=== PATIENT | female | born 1950 | race Caucasian/White ===

== ENCOUNTER → 2018-09-15 05:57 | Outpatient (CLI) | payer MEDICARE, SELFPAY ==
--- NOTE | 2018-09-15 06:03 | ECHOD_ITS ---
Reason For Study: Chest Pain Procedure This was a 2D Doppler, Color Flow transthoracic echocardiogram. The exam was of adequate technical quality. Exam performed in department. Left Ventricle Normal LV size. Left ventricular systolic function is normal. The estimated ejection fraction is 65 %. The global longitudinal strain = -19 % (normal). Diastolic function is indeterminate. No regional wall motion abnormalities noted. Right Ventricle Normal RV size. Normal systolic function. Atria The left atrium is moderately enlarged. Normal right atrium. No doppler evidence for ASD. Mitral Valve There is mild mitral annular calcification. Equivocal mitral valve prolapse. Mild (1+) mitral valve insufficiency. Tricuspid Valve Normal tricuspid valve. Trivial tricuspid valve insufficiency. Right ventricular systolic pressure estimated to be 22 mmHg. Aortic Valve Trisinus/trileaflet aortic valve. Mild focal aortic valve calcification. Trivial aortic valve insufficiency. Pulmonic Valve The pulmonic valve is not well visualized. Trivial pulmonic valve insufficiency. Great Vessels Normal sized aortic root. Pericardium/Pleural No pericardial effusion. MMode/2D Measurements & Calculations LVIDd: 4.2 cm IVSd: 1.6 cm Ao root diam: 3.0 cm LVIDs: 2.5 cm LVPWd: 1.2 cm LA dimension: 3.9 cm RVDd: 2.8 cm FS: 40.8 % LAV(MOD-bp): 77.2 ml LVAd ap4: 29.6 cm2 SV(MOD-sp4): 56.8 ml LAV(MOD-bp) Indexed: 35.0 ml/m2 EDV(MOD-sp4): 91.3 ml LAV(MOD-sp2): 71.9 ml EDV(sp4-el): 94.5 ml LAV(MOD-sp4): 82.5 ml LVAs ap4: 15.8 cm2 ESV(MOD-sp4): 34.5 ml ESV(sp4-el): 36.2 ml EF(MOD-sp4): 62.2 % EF(sp4-el): 61.7 % SV(sp4-el): 58.3 ml LA A4 area: 26.1 cm2 RA A4 area: 12.1 cm2 Time Measurements MV dec time: 0.26 sec Doppler Measurements & Calculations MV E max blair: 69.0 cm/sec Lat Peak E' Blair: 8.7 cm/sec Med Peak E' Blair: 7.1 cm/sec MV A max blair: 112.7 cm/sec E/E' lat: 7.9 E/E' med: 9.7 MV E/A: 0.61 MV V2 max: 140.6 cm/sec MV P1/2t max blair: 84.7 cm/sec Ao V2 max: 158.2 cm/sec MV max P.9 mmHg MV P1/2t: 99.7 msec Ao max P.0 mmHg MV V2 mean: 71.2 cm/sec Ao V2 mean: 103.2 cm/sec MV mean P.4 mmHg MV dec slope: 249.1 cm/sec2 Ao mean P.0 mmHg MV V2 VTI: 35.1 cm MVA(P1/2t): 2.2 cm2 Ao V2 VTI: 31.2 cm AI max blair: 453.9 cm/sec LV V1 max: 117.3 cm/sec PA V2 max: 101.1 cm/sec AI max P.4 mmHg LV V1 max P.5 mmHg AI dec slope: 202.1 cm/sec2 LV V1 mean P.8 mmHg AI P1/2t: 657.7 msec LV V1 mean: 77.7 cm/sec LV V1 VTI: 25.6 cm TR max blair: 217.2 cm/sec TR max P.9 mmHg Interpretation Summary Left ventricular systolic function is normal. The estimated ejection fraction is 65 %. The global longitudinal strain = -19 % (normal). The left atrium is moderately enlarged. There is mild mitral annular calcification. Equivocal mitral valve prolapse. Mild (1+) mitral valve insufficiency. Trivial tricuspid valve insufficiency. Mild focal aortic valve calcification. Trivial aortic valve insufficiency. Trivial pulmonic valve insufficiency. Right ventricular systolic pressure estimated to be 22 mmHg. Diastolic function is indeterminate. Ordering Physician: Robert Angulo Referring Physician: Xander Gunn Performed By: John Hong RCS
--- NOTE | 2018-09-15 09:25 | STRESSREP ---
Stress Test Report Date: 09/15/2018 Procedure: Exercise tolerance test/imaging study Indications: Chest pain Consent: Per the patient Procedure: The patient exercised on a Kushal protocol for 4 minutes and 45 seconds completing Stage I and 1 minute and 45 seconds of Stage II achieving a peak heart rate of 146 bpm (96 % predicted maximal heart rate) with a peak blood pressure 158/82 mmHg and a peak MET capacity of 6 METs. The baseline ECG demonstrated normal sinus rhythm. The peak exercise ECG demonstrated somatic/motion artifact with no obvious ECG changes. There was an isolated PVC during exercise. The functional capacity was considered average. There was chest pressure during exercise with spontaneous resolution in recovery. The examination was discontinued secondary to chest pressure. Impression: 1. Technically adequate (percent predicted maximal heart rate greater than 85%) exercise tolerance test 2. Peak exercise ECG with somatic/motion artifact with no obvious ECG changes 3. There was an isolated PVC during exercise 4. Nuclear images pending Myocardial perfusion imaging study: Technique: The patient was injected with 14.1 mCi of technetium 99m Cardiolite and subsequently rest SPECT Cardiolite nuclear imaging was obtained in the horizontal long, vertical long, and short axis views. The patient exercised on a Kushal protocol for 4 minutes and 45 seconds completing Stage I and 1 minute 45 seconds of Stage II achieving a peak heart rate of 146 bpm (96 % predicted maximal heart rate) with a peak blood pressure 158/82 mmHg and a peak MET capacity of 6 METs. The patient was injected with 44.6 mCi of technetium 99m Cardiolite and subsequently stress SPECT Cardiolite nuclear imaging was obtained in the horizontal long, vertical long, and short axis views. A gated Cardiolite study at peak stress was obtained. Interpretation: Rest and stress SPECT Cardiolite nuclear imaging status post realignment, normalization, and, pre-attenuation correction, and post attenuation correction, demonstrates appearance at pre-attenuation correction of diminished tracer uptake in portions of the mid to distal anterior and anterior apical segments which appears to be similar between rest and stress and post attenuation demonstrating the appearance of diminished tracer uptake in portions of the mid to distal anterior and anterior apical segments which appears to be more prominent at rest as opposed to stress. However, the polar map images suggest at stress and area of venous tracer uptake in the anterior apical segments appearing more prominent at stress as opposed to rest. There is end systolic thickening and brightening. The gated Cardiolite study demonstrates myocardial thickening and inward wall motion. The reported LVEF is 68 %. Impression: 1. Rest and stress SPECT Cardiolite nuclear imaging demonstrate myocardial perfusion changes pre-attenuation correction at both rest and stress appearing similar without significant changes; post attenuation correction appearing somewhat more prominent at rest as opposed to stress; and the polar map images demonstrating an area of diminished tracer uptake in the anterior apical segments which appears to be more prominent at stress as opposed to rest. The aforementioned changes may be compatible with a combination of shifting soft tissue attenuation/artifact, however, an area of myocardial ischemia in the distal anterior/anteroapical segments cannot necessarily be excluded. 2. The gated Cardiolite study reports an LVEF of 68 %. This note was generated with [employer] software. It may contain incorrect words, spelling, and punctuation that were not noted in checking the note before signing.
== END ==
PROVIDERS: Family Provider Family Medicine; PCP Family Medicine; Referring Provider Internal Medicine Cardiovascular Disease; Visit Provider Internal Medicine Cardiovascular Disease
DX: R07.9 Chest pain, unspecified (principal); E78.5 Hyperlipidemia, unspecified; I10 Essential (primary) hypertension; R06.02 Shortness of breath
CPT/HCPCS: 78452; 93017; 93306; A9500; A4216

== ENCOUNTER → 2018-09-28 11:21 | Outpatient (CLI) | payer MEDICARE, SELFPAY ==
[2018-08-18 10:07] VITALS: BMI 36.1
--- NOTE | 2018-09-28 11:35 | RAD_ITS ---
NO CHEST COMPLAINTS, HAVING HEART CATH DONE EXAM: XR Chest 2 Views: COMPARISON: No current comparison exams FINDINGS: Normal heart size. Interstitial scarring involving the mid and lower lung zones bilaterally. The pulmonary vascularity shows no overt congestion. No pleural effusion or pulmonary consolidation. Small hiatal hernia. Surgical clips at the left breast RAD/Chest PA and Lateral IMPRESSION: 1. No definite acute disease. 2. Mild interstitial fibrosis 3. Small hiatal hernia. at 0331 Reported and signed by: Alfredo Long MD Electronically Signed: Alfredo Long, at 3:29 EST Tel , Service support ,
[2018-09-28 13:45] LABS: Absolute Lymphocyte Count 2.64 X10^3/ul (0.83-4.51); Absolute Neutrophil Count 4.1 X10^3/uL (2.0-7.7); Basophil# 0.02 X10^3/uL; Basophil% 0.3 % (0-1); Eosinophil# 0.09 X10^3/uL; Eosinophils% 1.2 % (0-5); Hematocrit 44.4 % (37-47); Hemoglobin 15.1 g/dl (12.0-15.0); Lymphocyte # 2.64 X10^3/ul (4.0); Lymphocyte % 34.9 % (19-41); Mean Corpuscular Hgb 31.7 pg (27.0-32.0); Mean Corpuscular Volume 93.1 fL (81-99); Mean Platelet Vol. 11.4 fl (6.2-12.0); Monocyte# 0.68 X10^3/uL; Neutrophil # 4.14 X10^3/uL (2.7-7.7); Neutrophil % 54.6 % (47-70); Platelet Count 190 K/mm3 (150-450); RBC Distribution Width CV 12.6 % (11.6-14.6); Red Blood Count 4.77 M/mm3 (4.2-5.4); White Blood Count 7.6 K/mm3 (4.4-11.0)
[2018-09-28 13:46] LABS: POSITIVE COUNT NO; POSITIVE DIFFERENTIAL NO; POSITIVE MORPHOLOGY NO
[2018-09-28 13:49] LABS: Prothrombin Time (Protime)PT. 13.4 SECONDS (11.7-14.9)
[2018-09-28 13:50] LABS: Partial Thromboplast Time 29.1 Seconds (24.1-36.2)
[2018-09-28 13:58] LABS: Anion Gap 6 (5-15); BUN 18 mg/dL (7-18); BUN/Creat Ratio 24.9 RATIO (10-20); Calcium,Total 9.4 mg/dL (8.5-10.1); Chloride 108 mmol/L (98-107); Creatinine, Serum 0.72 mg/dL (0.55-1.02); EST Glomerular Filtration Rate 85 mL/min (>60); Est Glom Filt Rate - Afr Amer 103 mL/min (>60); Glucose 62 mg/dL (74-106); Potassium 3.8 mmol/L (3.5-5.1); Sodium Level 141 mmol/L (136-145)
--- OUTSIDE RECORDS SUMMARY | 2018-11-23 20:15 | XMS RPT_ITS ---
:1950 Author Organization [facility] Care Team Providers Name Role Phone MIKE PADRON Admitting Unavailable MIKE PADRON Attending Unavailable LYNDA GIL (WINDOWS SERVER SUPPORT TECHNICIAN) Referring Unavailable XANDER GUNN Referring Unavailable XANDER GUNN Attending Unavailable XANDER GUNN Referring Unavailable XANDER GUNN Referring Unavailable XANDER GUNN Referring Unavailable XANDER GUNN Referring Unavailable XANDER GUNN Referring Unavailable MIKE PADRON Referring Unavailable MIKE PADRON Attending Unavailable XANDER GUNN Referring Unavailable OLIVE VALENCIA (GALLO) Attending Unavailable MIKE PADRON Referring Unavailable MIKE PADRON Attending Unavailable MIKE PADRON Referring Unavailable XANDER GUNN Referring Unavailable XANDER GUNN Attending Unavailable XANDER GUNN Referring Unavailable XANDER GUNN Referring Unavailable LYNDA GIL (WINDOWS SERVER SUPPORT TECHNICIAN) Attending Unavailable LYNDA GIL (WINDOWS SERVER SUPPORT TECHNICIAN) Referring Unavailable Vesna, Alexis H Attending Unavailable Moodisedgar, Robert Attending Unavailable Moodispagalileo, Robert Referring Unavailable [place]quebogue, Xander Primary Care Unavailable Moodispagalileo, Robert Consulting Unavailable Elmira Martinez Attending Unavailable Moodisedgar, Robert Attending Unavailable Dionte Méndez Referring Unavailable Moodispagalileo, Robert Attending Unavailable Moodispagalileo, Robert Referring Unavailable Luis A, Xander Primary Care Unavailable Moodispagalileo, Robert Attending Unavailable Moodispagalileo, Robert Referring Unavailable Luis A, Xander Primary Care Unavailable Moodispagalileo, Robert Consulting Unavailable Elmira Hook Attending Unavailable Elmira Hook Referring Unavailable [place]quebogue, Xander Primary Care Unavailable Moodispagalileo, Robert Attending Unavailable Moodispagalileo, Robert Referring Unavailable [place], Xander Primary Care Unavailable PROBLEMS PROBLEMS DATE TYPE CONDITION / CODE ATTENDING STATUS SOURCE 09/15/2018 Unknown I10 - Essential Moodispagalileo, Robert Active [facility] (primary) Community hypertension / Hospital I10(ICD-10) Repository 09/15/2018 Unknown R07.9 - Chest Moodispagalileo, Robert Active [facility] pain, unspecified Community / R07.9(ICD-10) Hospital Repository 09/15/2018 Unknown R06.02 - Shortness Moodispagalileo, Robert Active [place] of breath / Community R06.02(ICD-10) Hospital Repository 09/15/2018 Unknown E78.5 - Moodispagalileo, Robert Active [facility] Hyperlipidemia, Community unspecified / Hospital E78.5(ICD-10) Repository 08/31/2018 Active Unknown / KASI, Active [facility] UNK(Unknown) LYNDA (WINDOWS SERVER SUPPORT TECHNICIAN) [place] Repository 07/12/2018 Active 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 Repository arteries / I65.23(ICD-10) 07/30/2018 Active Encounter for NA Active [facility] immunization / [place] Z23(ICD-10) Repository 07/05/2018 Active 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 [facility] (current) drug [place] therapy / Repository Z79.899(ICD-10) 01/28/2018 Active Trigger finger, MIKE PADRON Active [facility] right middle [place] finger / Repository M65.331(ICD-10) 01/17/2018 Active Pain, unspecified NA Active [facility] / R52(ICD-10) [place] Repository 05/25/2017 Active Cerebral cysts / NA Active [facility] G93.0(ICD-10) [place] Repository 01/03/2018 Active Age-related NA Active [facility] osteoporosis [place] without current Repository pathological fracture / M81.0(ICD-10) 12/23/2017 Active Encounter for NA Active [facility] screening for [place] other disorder / Repository Z13.89(ICD-10) 12/23/2017 Active Low back pain / NA Active [facility] M54.5(ICD-10) [place] Repository 12/23/2017 Active Other chronic pain NA Active [facility] / G89.29(ICD-10) [place] Repository 05/25/2017 Active 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[facility] infarction, [place] unspecified / Repository I63.9(ICD-10) 12/16/2017 Active Encounter for NA Active [facility] screening for [place] other viral Repository diseases / Z11.59(ICD-10) 08/31/2017 Active Malignant neoplasm NA Active [facility] of lower-inner [place] quadrant of left Repository female breast / C50.312(ICD-10) 08/31/2017 Active Estrogen receptor NA Active [facility] positive status [place] (ER+) / Repository Z17.0(ICD-10) 12/09/2017 Active Encounter for NA Active [facility] screening [place] mammogram for Repository malignant neoplasm of breast / Z12.31(ICD-10) PROCEDURES PROCEDURES No Procedure Records FoundRESULTS RESULTS HISTORY AND PHYSICAL Observed: 10/11/2018 Status: F Source: [place] EXAM 9:12 AM [facility] [place] [facility] Medical Records Department [address] [place] [id number] History and Physical 10/11/18 0903 MR#: [id number] Acct: [id number] Name: PENELOPE CEDILLO Rep #: [id number] : 1950 68 From: Robert Angulo MD PCP: Xander Gunn MD Status: [place] [facility] [place] Location[place] [facility] Problem List (1) Chest pain Status: Acute Qualifiers: (2) SOB (shortness of breath) Status: Acute (3) Abnormal stress test Status: Acute (4) Hyperlipemia Status: Chronic Qualifiers: (5) Essential hypertension Status: Chronic History of Present Illness Date of Admission: 10/11/18 The patient is a 68 year old female who has previously been evaluated in the outpatient setting for concerns of chest discomfort, shortness of breath, superimposed upon hyperlipidemia and hypertension, who now presents for further cardiovascular evaluation based upon an abnormal exercise tolerance test/imaging study. Since her original evaluation she underwent a transthoracic echocardiogram on 09/15/2018. At that time her left ventricle was normal with an LVEF of 65% with moderate left atrial enlargement, mild mitral annular calcification, equivocal mitral valve prolapse with mild MR, trivial TR, mild focal aortic valve calcification with trivial AI, trivial WI, and an estimated RV systolic pressure of 22 mmHg. Diastolic dysfunction was considered indeterminate. She underwent an exercise tolerance test/nuclear imaging study on 09/15/2018. At that time she exercised on a Kushal protocol for 4 minutes and 45 seconds achieving 96% predicted maximal heart rate with a peak blood pressure 158/82 mmHg and a peak metabolic capacity of 6 metabolic equivalents. She had an isolated PVC during exercise. She had no obvious ECG changes. Her nuclear images suggested changes in the distal anterior apical segments being somewhat more prominent at stress as opposed to rest potentially compatible shifting soft tissue attenuation/artifact although an area of myocardial ischemia could not be excluded. Her gated LVEF was 68%. She states over time she still has concerns of exertional chest pressure as well as feeling somewhat short of breath and dyspneic. She has denied obvious orthopnea or PND. There is been no peripheral pitting edema. There is been no near syncope or syncope. Based upon her ongoing cardiovascular risk factors, symptoms, and objective findings she has been recommended for further evaluation with diagnostic cardiac catheterization. The procedure and risks were discussed with her. She was agreeable to this approach. [] Past Medical History Allergies/Adverse Reactions: Allergies loratadine [From Claritin] Allergy (Severe, Verified 08/18/18 10:07) Hives Penicillins Allergy (Severe, Verified 08/18/18 10:07) Anaphylaxis acetaminophen [From Vicodin] Adverse Reaction (Severe, Verified 08/18/18 10:07) Vomiting hydrocodone [From Vicodin] Adverse Reaction (Severe, Verified 08/18/18 10:07) Vomiting Home Medications: Ambulatory Orders Medication Instructions Recorded Past Medical History (Chronic Problems): Chronic Problems (Last Reviewed 08/18/18 @ 10:13 by Elmira Martinez) Essential hypertension (Chronic) Hyperlipemia (Chronic) GERD (gastroesophageal reflux disease) (Chronic) Smoking Status: Never smoker Alcohol: None Drugs: None Review of Systems - Review of Systems General: Denies: Fever, Night Sweats, Fatigue Cardiovascular: Reports: Chest Discomfort at Rest, Shortness of Breath with Exertion. Denies: Chest Discomfort, Shortness of Breath, Orthopnea, PND, Peripheral Edema, Palpitations, Lightheadedness, Dizziness, Near Syncope, Syncope Respiratory: Reports: Shortness of Breath. Denies: Cough, Sputum Production, Hemoptysis Gastrointestinal: Denies: Hematemesis, Hematochezia, Melena Genitourinary: Denies: Dysuria, Hematuria Skin: Denies: Rash Subjectve: This is a pleasant 68-year-old white female appears to be resting comfortably at the moment in no acute distress. Objective: Weight: 241 lb Body Mass Index (BMI) 36.1 General: Awake, Alert, Oriented x 3, Cooperative, No Acute Distress HEENT: Atraumatic, Normocephalic, PERRL, EOMI, Sclera Non Icteric Oral: Moist Mucosa Neck: Supple, Good ROM, No JVD Lungs: Clear to auscultation Cardiovascular: Regular Rhythm, Normal S1, Normal S2 Vascular: No Carotid Bruits Abdomen: Bowel Sounds Present, Soft, Non Tender Extremities: No Cyanosis, No Clubbing, No edema Neurological: No Focal Motor or Sensory Deficit Psych/Mental Status: Appropriate, Normal Affect VTE Information - Inpt Only VTE Present on Admission: No VTE Mechan Device Prophylaxis: None VTE Pharm Prophylaxis ordered?: No Reason prophylaxis not ordered:: Treatment Not Indicated Rhythm: Sinus rhythm EKG: Sinus rhythm; leftward axis; poor R wave progression ECHO: As noted above Stress Test: As noted above CXR: Per radiology: Concerns of mild interstitial fibrosis; small hiatal hernia; no definite acute disease process Assessment/Plan 1. Chest pain/shortness of breath The patient has continue with concerns of her chest pain/shortness of breath. As noted above she does have cardiovascular risk factors. She has an abnormal exercise tolerance test/imaging study. She is going to be further evaluated for the possibility of underlying CAD with diagnostic cardiac catheterization. The procedure and risks were discussed with her. She was agreeable to this approach. 2. Abnormal exercise tolerance test/imaging study At the present time she continues with her cardiovascular risk factors and symptoms and her objective findings. She is scheduled for upcoming diagnostic cardiac catheterization as noted above. 3. Hyperlipidemia We will continue risk factor evaluation care as deemed appropriate. 4. Hypertension She will continue medical management as deemed appropriate. Comment: The above was discussed and reviewed with the patient. This note was generated with Secure-NOK dictation software. It may contain incorrect words, spelling, and punctuation that were not noted in checking the note before signing. 10/11/1812 <Electronically signed by Robert Angulo MD> Date Robert Angulo MD Cosigner Signature: Date (if applicable) CC: Robert Angulo MD; Xander Gunn MD Signed CNCO Observed: 09/29/2018 Status: COMPLETED Source: [place] 12:[address] [facility] REPOSITORY Letter Text [facility] Department of Family Medicine [address] [facility]. [place], [place] [address] Penelope Cedillo [address] [place] [address] September 29, 2018 Dear , Due to unforeseen circumstances, there has been a change in the schedule for Xander Gunn MD Your original appointment scheduled for 01/10/2019 at 1:00 PM has been cancelled, please give our office a call at [phone]. I apologize for any inconvenience this may cause you. Sincerely, Department of Family Medicine [facility] CHEST PA AND LATERAL Observed: 09/28/2018 Status: F Source: [place] 11:35 AM [facility] [place] [facility] Imaging Services [address] [place] [address] Chest PA and Lateral MR#: [id number] Acct: [id number] Name: PENELOPE CEDILLO Rep #: [id number] : 1950 F 68 From: Alfredo Long MD PCP: Xander Gunn MD Status: REG CLI Study: Chest PA and Lateral Date of Exam: 09/28/18 Exam# [id number] Ordering Dr: Elmira Hook NO CHEST COMPLAINTS, HAVING HEART CATH DONE EXAM: XR Chest 2 Views: COMPARISON: No current comparison exams FINDINGS: Normal heart size. Interstitial scarring involving the mid and lower lung zones bilaterally. The pulmonary vascularity shows no overt congestion. No pleural effusion or pulmonary consolidation. Small hiatal hernia. Surgical clips at the left breast RAD/Chest PA and Lateral IMPRESSION: 1. No definite acute disease. 2. Mild interstitial fibrosis 3. Small hiatal hernia. at 0331 Reported and signed by: Alfredo Long MD Electronically Signed: Alfredo Long, at 3:29 EST Tel , Service support , CC: Elmira Hook; Xander Gunn MD Blow Molding Machine Tender: Signed CBC W/DIFF, AUTOMATED Collected: 09/28/2018 Status: F Source: [place] 11:25 AM [facility] [place] TYPE CODE TESTS RESULT OUT OF RANGE REFERENCE UNITS LAB L100.1000 4.4-11.0 K/mm3 Normal WBC 7.6 LAB L100.1200 4.2-5.4 M/mm3 Normal RBC 4.77 LAB L100.1300 12.0-15.0 g/dl High HGB 15.1 LAB L100.1400 37-47 % Normal HCT 44.4 LAB L100.1500 81-99 fL Normal MCV 93.1 LAB L100.1600 27.0-32.0 pg Normal MCH 31.7 LAB L100.1700 32-36 g/gl Normal MCHC 34.0 LAB L100.1810 11.6-14.6 % Normal RDW CV 12.6 LAB L100.1820 35.1-43.9 fl Normal RDW SD 42.0 LAB L100.1900 150-450 K/mm3 Normal PLT 190 LAB L100.2000 6.2-12.0 fl Normal MPV 11.4 LAB L100.2100 47-70 % Normal NEUT% 54.6 LAB L100.2200 19-41 % Normal LY% 34.9 LAB L100.2300 0-10 % Normal MONO% 9.0 LAB L100.2400 0-5 % Normal EO% 1.2 LAB L100.2500 0-1 % Normal BASO% 0.3 LAB L100.2550 0.0-0.9 % Normal IM GRAN % 0.000 Result Comment: IG% - Immature Granulocytes (promyelocytes, myelocytes and metamyelocytes) > 1% indicates that a LEFT SHIFT is Present. LAB L100.2620 2.0-7.7 X10 3/uL Normal Absolute Neut 4.1 LAB L100.2720 0.83-4.51 X10 3/ul Normal Absolute Lymph 2.64 Performed By: #### L100.0100 #### [facility] [address] [place], [address] PROTHROMBIN TIME W/INR Collected: 09/28/2018 Status: F Source: [place] 11:25 AM [facility] [place] TYPE CODE TESTS RESULT OUT OF RANGE REFERENCE UNITS LAB L300.4150 11.7-14.9 SECONDS Normal PROTIME 13.4 LAB L300.4200 Normal INR 1.0 Performed By: #### L300.3900, L300.4310 #### [facility] [address] [place], [address] PARTIAL THROMBOPLAST Collected: 09/28/2018 Status: F Source: [place] TIME 11:25 AM [facility] [place] TYPE CODE TESTS RESULT OUT OF RANGE REFERENCE UNITS LAB L300.4310 24.1-36.2 Seconds Normal PTT 29.1 Performed By: #### L300.3900, L300.4310 #### [facility] [address] [place], [address] BASIC METABOLIC Collected: 09/28/2018 Status: F Source: [place] PROFILE (BMP) 11:25 AM [facility] [place] TYPE CODE TESTS RESULT OUT OF RANGE REFERENCE UNITS LAB L501.0100 74-106 mg/dL Low GLU 62 Result Comment: Please note revised GLUCOSE reference range effective 2017. LAB L501.1000 7-18 mg/dL Normal BUN 18 LAB L501.1100 0.55-1.02 mg/dL Normal CREAT,SERUM 0.72 Result Comment: The validity of the calculated GFR AND GFRAA in patients over 70 years has not been determined. Clinical correlation is essential. LAB L501.1110 >60 mL/min Normal EST GFR 85 Result Comment: Non- GFR Calc LAB L501.1115 >60 mL/min Normal EST GFR - AA 103 Result Comment: GFR Calc LAB L501.1300 10-20 RATIO High BUN/CRE 24.9 LAB L501.2200 8.5-10.1 mg/dL CA Normal 9.4 LAB L501.5300 136-145 mmol/L NA Normal 141 LAB L501.5600 3.5-5.1 mmol/L K Normal 3.8 LAB L501.5900 98-107 mmol/L High CL 108 LAB L501.6100 21.0-32.0 mmol/L Normal CO2 27.0 LAB L501.6200 5-15 Normal GAP 6 Performed By: #### L500.2500 #### [facility] [address] [facility] [place], [address] ECHOCARDIOGRAM COMPLETE Observed: 09/15/2018 Status: F Source: [place] 8:23 PM [facility] [place] [facility] Cardiovascular Services [address] [place] [address] Echo Complete 09/15/18 0901 MR#: [id number] Acct: [id number] Name: PENELOPE CEDILLO Rep #: [id number] : 1950 68 From: Robert Angulo MD Attending Dr: Robert Angulo MD Status: REG CLI Ordering Dr: Robert Angulo MD Date: 09/15/18 Location: [facility] Sex: F C Admitted: Reason For Study: Chest Pain Procedure This was a 2D Doppler, Color Flow transthoracic echocardiogram. The exam was of adequate technical quality. Exam performed in department. Left Ventricle Normal LV size. Left ventricular systolic function is normal. The estimated ejection fraction is 65 %. The global longitudinal strain = -19 % (normal). Diastolic function is indeterminate. No regional wall motion abnormalities noted. Right Ventricle Normal RV size. Normal systolic function. Atria The left atrium is moderately enlarged. Normal right atrium. No doppler evidence for ASD. Mitral Valve There is mild mitral annular calcification. Equivocal mitral valve prolapse. Mild (1+) mitral valve insufficiency. Tricuspid Valve Normal tricuspid valve. Trivial tricuspid valve insufficiency. Right ventricular systolic pressure estimated to be 22 mmHg. Aortic Valve Trisinus/trileaflet aortic valve. Mild focal aortic valve calcification. Trivial aortic valve insufficiency. Pulmonic Valve The pulmonic valve is not well visualized. Trivial pulmonic valve insufficiency. Great Vessels Normal sized aortic root. Pericardium/Pleural No pericardial effusion. MMode/2D Measurements AND Calculations LVIDd: 4.2 cm IVSd: 1.6 cm Ao root diam: 3.0 cm LVIDs: 2.5 cm LVPWd: 1.2 cm LA dimension: 3.9 cm RVDd: 2.8 cm FS: 40.8 % LAV(MOD-bp): 77.2 ml LVAd ap4: 29.6 cm2 SV(MOD-sp4): 56.8 ml LAV(MOD-bp) Indexed: 35.0 ml/m2 EDV(MOD-sp4): 91.3 ml LAV(MOD-sp2): 71.9 ml EDV(sp4-el): 94.5 ml LAV(MOD-sp4): 82.5 ml LVAs ap4: 15.8 cm2 ESV(MOD-sp4): 34.5 ml ESV(sp4-el): 36.2 ml EF(MOD-sp4): 62.2 % EF(sp4-el): 61.7 % SV(sp4-el): 58.3 ml LA A4 area: 26.1 cm2 RA A4 area: 12.1 cm2 Time Measurements MV dec time: 0.26 sec Doppler Measurements AND Calculations MV E max julius: 69.0 cm/sec Lat Peak E' Julius: 8.7 cm/sec Med Peak E' Julius: 7.1 cm/sec MV A max julius: 112.7 cm/sec E/E' lat: 7.9 E/E' med: 9.7 MV E/A: 0.61 MV V2 max: 140.6 cm/sec MV P1/2t max julius: 84.7 cm/sec Ao V2 max: 158.2 cm/sec MV max P.9 mmHg MV P1/2t: 99.7 msec Ao max P.0 mmHg MV V2 mean: 71.2 cm/sec Ao V2 mean: 103.2 cm/sec MV mean P.4 mmHg MV dec slope: 249.1 cm/sec2 Ao mean P.0 mmHg MV V2 VTI: 35.1 cm MVA(P1/2t): 2.2 cm2 Ao V2 VTI: 31.2 cm AI max julius: 453.9 cm/sec LV V1 max: 117.3 cm/sec PA V2 max: 101.1 cm/sec AI max P.4 mmHg LV V1 max P.5 mmHg AI dec slope: 202.1 cm/sec2 LV V1 mean P.8 mmHg AI P1/2t: 657.7 msec LV V1 mean: 77.7 cm/sec LV V1 VTI: 25.6 cm TR max julius: 217.2 cm/sec TR max P.9 mmHg Interpretation Summary Left ventricular systolic function is normal. The estimated ejection fraction is 65 %. The global longitudinal strain = -19 % (normal). The left atrium is moderately enlarged. There is mild mitral annular calcification. Equivocal mitral valve prolapse. Mild (1+) mitral valve insufficiency. Trivial tricuspid valve insufficiency. Mild focal aortic valve calcification. Trivial aortic valve insufficiency. Trivial pulmonic valve insufficiency. Right ventricular systolic pressure estimated to be 22 mmHg. Diastolic function is indeterminate. Ordering Physician: Robert Angulo Referring Physician: Xander Gunn Performed By: John Hong RCS 09/15/182021 Date Robert Angulo MD CC: Robert Angulo MD; Xander Gunn MD Date Dictated: 09/15/18900 Date Transcribed: 09/15/182021 Blow Molding Machine Tender: Signed STRESS REPORT Observed: 09/15/2018 Status: F Source: [place] 9:39 AM [facility] [place] [facility] Cardiovascular Services [address] [place] [address] MR#: [id number] Acct: [id number] Name: PENELOPE CEDILLO Rep #: [id number] : 1950 68 From: Robert Angulo MD Primary Care: Xander Gunn MD Status: REG CLI Ordering Dr: Sex: F C Stress Test Report Date: 09/15/2018 Procedure: Exercise tolerance test/imaging study Indications: Chest pain Consent: Per the patient Procedure: The patient exercised on a Kushal protocol for 4 minutes and 45 seconds completing Stage I and 1 minute and 45 seconds of Stage II achieving a peak heart rate of 146 bpm (96 % predicted maximal heart rate) with a peak blood pressure 158/82 mmHg and a peak MET capacity of 6 METs. The baseline ECG demonstrated normal sinus rhythm. The peak exercise ECG demonstrated somatic/motion artifact with no obvious ECG changes. There was an isolated PVC during exercise. The functional capacity was considered average. There was chest pressure during exercise with spontaneous resolution in recovery. The examination was discontinued secondary to chest pressure. Impression: 1. Technically adequate (percent predicted maximal heart rate greater than 85%) exercise tolerance test 2. Peak exercise ECG with somatic/motion artifact with no obvious ECG changes 3. There was an isolated PVC during exercise 4. Nuclear images pending Myocardial perfusion imaging study: Technique: The patient was injected with 14.1 mCi of technetium 99m Cardiolite and subsequently rest SPECT Cardiolite nuclear imaging was obtained in the horizontal long, vertical long, and short axis views. The patient exercised on a Kushal protocol for 4 minutes and 45 seconds completing Stage I and 1 minute 45 seconds of Stage II achieving a peak heart rate of 146 bpm (96 % predicted maximal heart rate) with a peak blood pressure 158/82 mmHg and a peak MET capacity of 6 METs. The patient was injected with 44.6 mCi of technetium 99m Cardiolite and subsequently stress SPECT Cardiolite nuclear imaging was obtained in the horizontal long, vertical long, and short axis views. A gated Cardiolite study at peak stress was obtained. Interpretation: Rest and stress SPECT Cardiolite nuclear imaging status post realignment, normalization, and, pre-attenuation correction, and post attenuation correction, demonstrates appearance at pre-attenuation correction of diminished tracer uptake in portions of the mid to distal anterior and anterior apical segments which appears to be similar between rest and stress and post attenuation demonstrating the appearance of diminished tracer uptake in portions of the mid to distal anterior and anterior apical segments which appears to be more prominent at rest as opposed to stress. However, the polar map images suggest at stress and area of venous tracer uptake in the anterior apical segments appearing more prominent at stress as opposed to rest. There is end systolic thickening and brightening. The gated Cardiolite study demonstrates myocardial thickening and inward wall motion. The reported LVEF is 68 %. Impression: 1. Rest and stress SPECT Cardiolite nuclear imaging demonstrate myocardial perfusion changes pre-attenuation correction at both rest and stress appearing similar without significant changes; post attenuation correction appearing somewhat more prominent at rest as opposed to stress; and the polar map images demonstrating an area of diminished tracer uptake in the anterior apical segments which appears to be more prominent at stress as opposed to rest. The aforementioned changes may be compatible with a combination of shifting soft tissue attenuation/artifact, however, an area of myocardial ischemia in the distal anterior/anteroapical segments cannot necessarily be excluded. 2. The gated Cardiolite study reports an LVEF of 68 %. This note was generated with Coub software. It may contain incorrect words, spelling, and punctuation that were not noted in checking the note before signing. 09/15/18938 <Electronically signed by Robert Angulo MD> Date Robert Angulo MD CC: Robert Angulo MD; Xander Gunn MD Date Dictated: 09/15/18924 Date Transcribed: 09/15/18924 Blow Molding Machine Tender: PM Signed PROGRESS Observed: 08/31/2018 Status: COMPLETED Source: [place] 10:33 AM [facility] RE[facility] O ID: [id number] Author: Lynda Gil Service: (none) Author Type: Nurse Practitioner Type: Progress Notes Filed: 08/31/2018 3:07 PM Note Text: Chief Complaint Patient presents with: Established Patient HPI: Penelope Cedillo is a 68 year old female who presents here today for follow up breast cancer. 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 ? ? H/o abnormal screening mammogram on 12/04/08. It showed a new group of calcifications inferiorly in the left breast. Diagnostic mammogram of the left breast on 12/17/08 showed suspicious grouping of microcalcification in the left breast at 6 o?clock. She underwent core needle biopsy on 12/24/08 and pathology showed DCIS with focal microinvasive carcinoma. DCIS component was intermediate to high grade with necrosis. She underwent lumpectomy and node staging on 01/07/09. It was ER positive and WI negative. ? Pathology showed residual DCIS measuring less than 1mm with negative margin. (The closest margin was 1.2cm superiorly.) One sentinel node and 8 additional axillary nodes were removed that were all negative for metastasis. ? Radiation:03/04/09 ??04/25/09 ? Started tamoxifen after radiation. Changed to arimidex due to PE. Stopped arimidex changed to aromasin stopped fall 2011 due to s/e- joint pain. ? No complaints. ? Appetite:too fine Energy level:It's ok, depends on the day. Denies fever, chills or night sweats. Resp:denies cough, occ.sob/luis Cardiac:+chest pressure, occ. palpitation-stress [id number]. Pt. having a stress next week-she is followed by cardiology GI:denies abd pain, h/o hiatal hernia-takes nexium, occ. nausea with reflux, denies vomiting, moving bowels regularly :denies dysuria/hematuria Extrem:denies pain to back/bones, occ. R arm pain s/p stroke Endo:hot flashes rarely Skin:denies rashes/lesions, dry skin to ears and L foot Heme:denies bleeding The ROS is otherwise negative. Past medical history, appointments, medications, allergies reviewed. No changes. EXAM: BP 141/71 Pulse 81 Temp 36.8 ?C (98.3 ?F) Wt 109.3 kg (241 lb) BMI 36.11 kg/m? APPEARANCE Well appearing, alert, in no acute distress, well-hydrated, well nourished. HEART RRR with normal S1 and S2, no murmurs LUNG clear to auscultation BREAST FEMALE no mass/nodule b/l, scar to L lower/radiation LYMPH NODES No cervical lymphadenopathy, No supraclavicular lymphadenopathy and No axillary lymphadenopathy. ABDOMEN bowel sounds normoactive, no bruits, soft, non-tender, non-distended, without organomegaly or palpable masses EXTREMITIES No edema NEURO Awake, alert and oriented x 3, Normal gait and No involuntary motions. SKIN Skin color, texture, turgor normal, no suspicious rashes or lesions ASSESSMENT/PLAN: 1. 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 Encounter for screening mammogram for high-risk patient - ICD9: V76.11, ICD10: Z12.31 - ?No concerning findings on exam. - ?Completed 3 years of AI therapy. Stopped prematurely d/t joint pain/aches. - ?Mammogram due in 2018. - ?Follow up in one year. - ?Pt. aware to call office with any questions/concerns. The patient indicates understanding of these issues and agrees with the plan. Lynda Gil APRN.CNP CNOVSP Observed: 08/31/2018 Status: COMPLETED Source: [place] 10:30 AM [facility] REPOS[facility] Visit (SP) Office (MARC[facility]) PENELOPE CEDILLO ([id number]) 1950 F Date Time Provider Department 08/31/18 10:30 AM LYNDA GIL During your visit today, we recorded the following information about you: Temperature Pulse Blood pressure Weight 98.3 degrees 81/minute 141/71 109.3 kg Lynda Gil APRN.CNP 08/31/2018 3:07 PM Signed Chief Complaint Patient presents with: Established Patient HPI: Penelpoe Cedillo is a 68 year old female who presents here today for follow up breast cancer. 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 ? ? H/o abnormal screening mammogram on 12/04/08. It showed a new group of calcifications inferiorly in the left breast. Diagnostic mammogram of the left breast on 12/17/08 showed suspicious grouping of microcalcification in the left breast at 6 o?clock. She underwent core needle biopsy on 12/24/08 and pathology showed DCIS with focal microinvasive carcinoma. DCIS component was intermediate to high grade with necrosis. She underwent lumpectomy and node staging on 01/07/09. It was ER positive and WI negative. ? Pathology showed residual DCIS measuring less than 1mm with negative margin. (The closest margin was 1.2cm superiorly.) One sentinel node and 8 additional axillary nodes were removed that were all negative for metastasis. ? Radiation:03/04/09 ??04/25/09 ? Started tamoxifen after radiation. Changed to arimidex due to PE. Stopped arimidex changed to aromasin stopped fall 2011 due to s/e- joint pain. ? No complaints. ? Appetite:too fine Energy level:It's ok, depends on the day. Denies fever, chills or night sweats. Resp:denies cough, occ.sob/luis Cardiac:+chest pressure, occ. palpitation-stress [id number]. Pt. having a stress next week-she is followed by cardiology GI:denies abd pain, h/o hiatal hernia-takes nexium, occ. nausea with reflux, denies vomiting, moving bowels regularly :denies dysuria/hematuria Extrem:denies pain to back/bones, occ. R arm pain s/p stroke Endo:hot flashes rarely Skin:denies rashes/lesions, dry skin to ears and L foot Heme:denies bleeding The ROS is otherwise negative. Past medical history, appointments, medications, allergies reviewed. No changes. EXAM: BP 141/71 Pulse 81 Temp 36.8 ?C (98.3 ?F) Wt 109.3 kg (241 lb) BMI 36.11 kg/m? APPEARANCE Well appearing, alert, in no acute distress, well- hydrated, well nourished. HEART RRR with normal S1 and S2, no murmurs LUNG clear to auscultation BREAST FEMALE no mass/nodule b/l, scar to L lower/radiation LYMPH NODES No cervical lymphadenopathy, No supraclavicular lymphadenopathy and No axillary lymphadenopathy. ABDOMEN bowel sounds normoactive, no bruits, soft, non-tender, non-distended, without organomegaly or palpable masses EXTREMITIES No edema NEURO Awake, alert and oriented x 3, Normal gait and No involuntary motions. SKIN Skin color, texture, turgor normal, no suspicious rashes or lesions ASSESSMENT/PLAN: 1. 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 Encounter for screening mammogram for high-risk patient - ICD9: V76.11, ICD10: Z12.31 - ?No concerning findings on exam. - ?Completed 3 years of AI therapy. Stopped prematurely d/t joint pain/aches. - ?Mammogram due in 2018. - ?Follow up in one year. - ?Pt. aware to call office with any questions/concerns. The patient indicates understanding of these issues and agrees with the plan. Lynda Gil, ALEC.WINDOWS SERVER SUPPORT TECHNICIAN Referring Provider: LYNDA GIL [[id number]] Allergies As of Date: 08/31/2018 Noted Allergy Reaction PENICILLINS 09/01/2005 10 - Anaphylaxis VICODIN (HYDROCODONE-ACETAMINOPHE*01/31/2009 11 - Vomiting CLARITIN (LORATADINE) 11/16/2005 4 - Hives Date Reviewed: 08/31/2018 Reviewed by: Lynda Gil - Fully Assessed Reason for Visit: Established Patient [175] Primary Visit Diagnosis:Malignant neoplasm of lower-inner quadrant of left breast in female, estrogen receptor positive (HCC) [C50.312, Z17.0] Other Visit Diagnosis:Encounter for screening mammogram for high-risk patient [Z12.31] Order(s):[facility] SCREENING [[id number]] Order #: [id number] FUTURE Follow-up and Disposition History Recorded Prescriptions as of 08/31/2018 Sig: CELECOXIB 200 MG CAPSULE Take 1 capsule by mouth once * SIMVASTATIN 10 MG TABLET Take 1 tablet by mouth once d* LISINOPRIL 10 MG-HYDROCHLOROT* Take 1 tablet by mouth once d* ESOMEPRAZOLE MAGNESIUM 20 MG * Take 20 mg by mouth once micheal* ASPIRIN 81 MG TABLET,DELAYED * Take 2 tablets by mouth once * FOLIC ACID 800 MCG TABLET Take 800 mcg by mouth once da* * CHOLECALCIFEROL (VITAMIN D3) * Take 2 tablets by mouth once * * GLUCOSAMINE 375 MG-CHONDROITI* Take by mouth. taking 2 tabl* * COMPOUNDED PRESCRIPTION CQ10 daily * FISH OIL 1,000 MG CAPSULE her dose is 1,200mg take one * * TY-C 500 MG CAPSULE Take one(1) capsule daily. * MULTIVITAMIN TABLET Take one(1) tablet daily. Problem List As Of Date 08/31/2018 Noted Resolved OVERWEIGHT [E66.9] Essential hypertension [I10] ESOPHAGEAL REFLUX [K21.9] More... GENERAL OSTEOARTHROSIS [M15.9] More... 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 [Z79.*INVALID FOR*05/25/2017 ER+ (estrogen receptor positive status) [Z17.0] INVALID FOR* Pulmonary embolism (HCC) [I26.99] INVALID FOR* Postmenopausal status (age-related) (natural) [*INVALID FOR* DJD (degenerative joint disease) [M19.90] INVALID FOR* Right leg pain [M79.604] INVALID FOR*05/25/2017 Trigger middle finger of right hand [M65.331] INVALID FOR* Trigger middle finger of left hand [M65.332] INVALID FOR* Trigger thumb of right hand [M65.311] INVALID FOR* Trigger thumb of left hand [M65.312] INVALID FOR* Osteopenia [M85.80] INVALID FOR*02/19/2014 Osteopenia [M85.80] INVALID FOR* Capsulitis [M77.9] INVALID FOR*05/25/2017 Tendonitis [M77.9] INVALID FOR*05/25/2017 Capsulitis of ankle [M77.50] INVALID FOR* Osteoarthritis [M19.90] INVALID FOR* Personal history of colonic polyps [Z86.010] INVALID FOR* Ocular migraine [G43.109] INVALID FOR* Gastroesophageal reflux disease without esophag*INVALID FOR* History of lacunar cerebrovascular accident (CV*INVALID FOR* Ischemic cerebrovascular accident (CVA) of fron*INVALID FOR* More... Bilateral carotid artery stenosis [I65.23] INVALID FOR* Arachnoid cyst [G93.0] INVALID FOR* Malignant neoplasm of lower-inner quadrant of l*INVALID FOR* Encounter Status:Closed by LYNDA GIL CNP on 08/31/18 CARDIOLOGY VISIT Observed: 08/18/2018 Status: F Source: [place] RE[place] 11:16 AM [facility] [place] [address] [place] [address] OFFICE VISIT Date of Service: 08/18/18 MR#: [id number] Acct: [id number] Name: PENELOPE CEDILLO Rep #: [id number] : 1950 Provider: Robert Angulo MD Age/Sex: 68/F [place] [facility]: Signed HPI HPI Details: PENELOPE CEDILLO, is a 68 F who presents to the office today for outpatient cardiovascular consultation based upon concerns of a history of palpitations, chest discomfort, and shortness of breath/dyspnea. She has previously been evaluated through the [facility] system in 2016. At that time it appeared she had a 24-hour Holter monitor where she was noted to have rare supraventricular ectopic complexes, one couplet, one triplet, 1 SVT run consisting of 4 beats, no ventricular ectopics, and symptoms not correlating with the aforementioned findings. It appears that she also had a stress echo cardiogram performed. Based upon the report it stated that it was a negative test for ischemia that the left ventricle was normal with an LVEF of 67% the left atrium was mildly enlarged and there was mild to moderate MR and no obvious intra-atrial septal aneurysm or shunt. She states that they were looking for etiologies of a TIA/CVA. According to an outpatient cardiovascular note there was a comment that there was no findings of atrial fibrillation. She states she was treated medically. She does not recall any cardiovascular evaluation since that time. She states she was told her symptoms were most likely related to GERD. In the interim she states she still has concerns of exertional chest pressure as well as elements of shortness of breath and dyspnea. She states she can sometimes feel short of breath and dyspneic at rest. There has been no rapid heart rate sensations. There has been no near syncope or syncope. She had an ECG in the office today. She was noted to have sinus rhythm with a leftward axis with poor R wave progression. Intake Vital Signs08/18/18 Height 5 ft 8.5 in 08/18/18 Weight: 241 lb 08/18/18 Body Mass Index (BMI) 36.1 08/18/18 Blood Pressure 138/88 H Intake Visit Reasons: Transfer from [facility] Allergies loratadine [From Claritin] Allergy (Severe, Verified 08/18/18 10:07) Hives Penicillins Allergy (Severe, Verified 08/18/18 10:07) Anaphylaxis acetaminophen [From Vicodin] Adverse Reaction (Severe, Verified 08/18/18 10:07) Vomiting hydrocodone [From Vicodin] Adverse Reaction (Severe, Verified 08/18/18 10:07) Vomiting Medications ascorbate calcium 500 mg capsule 500 mg PO DAILY 08/17/18 [History Confirmed 08/18/18] aspirin 81 mg tablet,delayed release 162 mg PO DAILY tab 08/17/18 [History Confirmed 08/18/18] celecoxib 200 mg capsule 200 mg PO DAILY 08/17/18 [History Confirmed 08/18/18] cholecalciferol (vitamin D3) 1,000 unit tablet 2,000 unit PO DAILY tab 08/17/18 [History Confirmed 08/18/18] esomeprazole magnesium 20 mg capsule,delayed release 20 mg PO DAILY 08/17/18 [History Confirmed 08/18/18] glucosamine 375 mg-chondroitin sul A 200 mg-herb no.182 100 mg capsule 2 cap PO DAILY cap 08/17/18 [History Confirmed 08/18/18] lisinopril 10 mg-hydrochlorothiazide 12.5 mg tablet 1 tab PO DAILY 08/17/18 [History Confirmed 08/18/18] multivitamin tablet 1 tab PO DAILY 08/17/18 [History Confirmed 08/18/18] omega-3 fatty acids 1,000 mg capsule 1,000 mg PO DAILY 08/17/18 [History Confirmed 08/18/18] simvastatin 10 mg tablet 10 mg PO QPM 08/17/18 [History Confirmed 08/18/18] [facility] Medical History SOB (shortness of breath) (Acute) Chest pain (Acute) Essential hypertension (Chronic) Hyperlipemia (Chronic) GERD (gastroesophageal reflux disease) (Chronic) Benign neoplasm of colon (Acute) Hiatal hernia (Acute) Osteoarthritis (Acute) Poliomyelitis (Acute) Pulmonary embolism (Acute) Stroke (Acute 2016) Cyst of brain (Chronic) Malignant neoplasm of breast (female) (Chronic) Heel spur (Resolved) Surgical History History of appendectomy (Resolved) History of section (Resolved) History of cholecystectomy (Resolved) History of hysterectomy (Resolved) History of lumpectomy of left breast (Resolved) History of neck surgery (Resolved) History of radial keratotomy (Resolved) S/P trigger finger release (Resolved) Family History Mother CAD (coronary artery disease) CVA (cerebral vascular accident) Atrial fibrillation Sister Polio Brother CVA (cerebral vascular accident) Social History Smoking Status: Never smoker alcohol intake: never substance use type: does not use ROS Const Const: Positive for fatigue (dont have stamina I used to have); negative for weakness, weight gain, weight loss, frequent falls or excessive sweating Eyes Eyes: Negative for change in vision, blurry vision or transient loss of vision ENT ENT: Positive for dizziness (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; 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) and balance problems (not as good as it used to be) Cardio Chest Pain: Yes Character: other (pressure frequently, becomes SOB) Onset: at rest, exercise Location: mid sternal Duration: brief Palpitations: Yes (occasional) feels like its: skipping Edema: None Muscle aches with walking: None Resp Respiratory: Positive for SOB with activity (increased) and SOB at rest (occasional with chest pressure) GI GI: Negative vomiting or vomiting blood/hematemesis : Negative for hematuria Musc Musc: Positive for balance problems (not as good as it used to be); negative for muscle aches/ myalgia, muscle weakness or joint pain Skin Skin: Negative non-healing lesions or rash Neuro Neuro: Positive for dizziness (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; 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); negative for weakness, blurry vision, lightheadedness, frequent falls or orthostatic symptoms [facility] Hematologic/Lymphatic: Negative for easy bleeding Endo Endo: Positive for fatigue (dont have stamina I used to have); negative for excessive sweating Psych Psych: Negative for anxiety or depression Allergy Allergy/Immunology: Negative for hives, Negative for rash Cardiology Exam Const Appearance: cooperative, healthy appearing, comfortable, no acute distress, well developed and well groomed Nutritional Appearance: overweight Orientation: alert, awake and oriented x3 Head Head: normal to inspection, normocephalic and atraumatic Ears: hearing grossly normal bilaterally Nose: external nose normal Face and Sinus: face symmetric Mouth: oral mucosae normal Teeth and gingiva: fair dentition Eyes Eyelids: eyelids normal Conjunctivae: conjunctivae normal Pupils: PERRL EOM: EOM intact bilaterally Neck Neck: normal visual inspection and full ROM Carotids: normal carotid upstroke Chest Chest inspection: normal inspection of the chest, symmetric chest movement and normal respiratory effort Auscultation: Bilateral: Clear to Auscultation Cardio Palpation: normal PMI Rate: regular rate Rhythm: regular rhythm Heart sounds: S1 normal and S2 normal GI GI: normal to inspection, bowel sounds present and soft Neuro General: alert, awake and oriented x3 Skin Skin: no rashes or lesions noted Extremities Pulses: Normal: Right Radial Pulse, Left Radial Pulse Lower Extremity Edema: None: Bilateral Psych Psychological: normal affect Assessment AND Plan 1. Chest pain, unspecified type R07.9 Plan At the present time she does have a area of chest discomfort. In the past it was thought to be noncardiac related. However her symptoms persist. Her concerns persist. Thus at the present time she will undergo follow-up evaluation. This will include an exercise tolerance test/imaging study. It may be reasonable to use an alternative imaging study such as a nuclear imaging study to assess for any obvious evidence of myocardial ischemia warranting further evaluation and care. Orders Orders: 2. Shortness of breath R06.02 Plan She does have episodes of shortness of breath and dyspnea. Again this can occur with her chest discomfort as well as separate. She will be further assessed with a transthoracic echocardiogram to reassess her left ventricular wall motion systolic function as well as notation of her underlying valvular heart disease which was detected during her previous echocardiographic study demonstrating mitral valve regurgitation Orders Orders: 3. Nonrheumatic mitral valve disorder I34.9 Plan She was diagnosed with mitral valve regurgitation based on her previous noninvasive studies. This is not been reassessed. She will have a follow-up echocardiogram to reassess her mitral valve anatomy and physiology 4. Hyperlipidemia, unspecified hyperlipidemia type E78.5 Plan She does need to continue risk factor evaluation and care. She is on medical management. She is being followed by her primary care physician Orders Orders: 5. Essential hypertension I10 Plan She does have a history of hypertension. Again she is on medical management. She will continue follow-up with her primary care physician. Orders Orders: Plan Detail Additional Comments Thank you for allowing me to participate in the care of your patient. Please don't hesitate to call if any issues arise. This note was generated using a voice recognition system and there may be incorrect words, spelling or punctuation that were not noted when reviewing the office note prior to saving. Follow Up 1 Year (PFM) Coding Level of Care Code Off vis,new,level 4 Diagnoses Chest pain, unspecified type R07.9 Chest pain type: unspecified Shortness of breath R06.02 Nonrheumatic mitral valve disorder I34.9 Hyperlipidemia, unspecified hyperlipidemia type E78.5 Hyperlipidemia type: unspecified Essential hypertension I10 Coding Level of Care Code Off vis,new,level 4 Diagnoses Chest pain, unspecified type R07.9 Chest pain type: unspecified Shortness of breath R06.02 Nonrheumatic mitral valve disorder I34.9 Hyperlipidemia, unspecified hyperlipidemia type E78.5 Hyperlipidemia type: unspecified Essential hypertension I10 08/18/18 1116 <Electronically signed by Robert Angulo MD> Date Robert Angulo MD Cosigner Signature: Date (if applicable) CC: Xander Gunn MD 12 LEAD EKG PERFORMED Observed: 08/18/2018 Status: F Source: [facility] [place] 10:04 AM [facility] [address] [place] [address] 12 Lead EKG performed by [facility] [place] 08/18/18 1004 MR#: [id number] Acct: [id number] Name: PENELOPE CEDILLO Rep #: [id number] : 1950 68 From: Robert Angulo MD Attending Dr: Robert Angulo MD Status: DEP AMB Ordering Dr: Robert Angulo MD Date: 08/18/18 [place] [facility] Sex: F C Admitted: [facility] [place]/12 Lead EKG performed by [facility] [place] ECG Report Interpretation Sinus Rhythm Leftward axisPoor R wave progressionElectronically signed on 08/18/2018 at 13:46 by Robert Angulo Software Version [id number] 08/18/18 1348 Date Robert Angulo MD CC: Dionte Méndez Date Dictated: 08/18/181003 Date Transcribed: 08/18/181003 Blow Molding Machine Tender: PM Signed CNNURSE Observed: 07/30/2018 Status: COMPLETED Source: [place] 10:30 AM [facility] Nurse Visit (CORW[facility]) PENELOPE CEDILLO ([id number]) 1950 F Date Time Provider Department 07/30/18 10:30 AM [facility] During your visit today, we recorded the following information about you: Kim Beverly Patient Safety Attendant 07/30/2018 10:27 AM Signed 68 year old female here for INACTIVATED INFLUENZA VACCINE. Season Patient is identified by name and date of : Yes [] CONTRAINDICATIONS color enhanced section Age less than 6 months? No Allergy to eggs, chicken, chicken feathers, or chicken dander? No Allergy to thimerosal (a preservative) or formaldehyde, gelatin? No History of severe reaction to any vaccine component or a previous dose of influenza vaccination? No History of Guillain-Sequim Syndrome within 6 weeks after a previous influenza vaccine? No Patient is not moderately or severely ill? No Current temperature greater or equal to 100.4F? No History of Bone Marrow Transplant prior 6 months or solid organ transplant in the past 3 months ? No History of fainting after a prior injection or medical procedure? No- ? If patient has fainted in the past, the CDC recommends sitting or lying down for 15 minutes after the vaccination. [] VERIFICATION color enhanced section Was the answer Yes for any of the above contraindications? No contraindications present. Acceptable to proceed with vaccine. Patient/guardian agrees the above answers are true to the best of their knowledge? Yes Flu vaccine information sheet given? Yes See immunization activity in [facility] for details of immunizations adminstered today. Patient age: [age] year old For The Flu Season 6-35 months old: Fluzone 0.25 ml - IM (Preservative Free) 3 years of age: Fluzone 0.5 ml - IM (Preservative Free) 3 years and older: Fluzone 0.5 ml- IM-(with Preservatives) 65+ years old: 2-49 years old Fluzone High-Dose 0.5 ml - IM (Preservative Free) FLUMIST- intranasal REMEMBER: If patient is less than 9 years of age and this is the first vaccine of Influenza to be received in any flu season, they should receive a second dose in one months time. Referring Provider: SELF [[id number]] Allergies As of Date: 07/30/2018 Noted Allergy Reaction PENICILLINS 09/01/2005 10 - Anaphylaxis VICODIN (HYDROCODONE-ACETAMINOPHE*01/31/2009 11 - Vomiting CLARITIN (LORATADINE) 11/16/2005 4 - Hives Date Reviewed: 07/12/2018 Reviewed by: Erica Stevens LPN - Fully Assessed Reason for Visit: Imm/Inj [58] Cmt: Flu Vaccine Primary Visit Diagnosis:Need for vaccination [Z23] Order(s):INFLUENZA SEASONAL HIGH DOSE AGE 65+ [[id number]] Order #: [id number] Prescriptions as of 07/30/2018 Sig: CELECOXIB 200 MG CAPSULE Take 1 capsule by mouth once * SIMVASTATIN 10 MG TABLET Take 1 tablet by mouth once d* LISINOPRIL 10 MG-HYDROCHLOROT* Take 1 tablet by mouth once d* ESOMEPRAZOLE MAGNESIUM 20 MG * Take 20 mg by mouth once micheal* ASPIRIN 81 MG TABLET,DELAYED * Take 2 tablets by mouth once * FOLIC ACID 800 MCG TABLET Take 800 mcg by mouth once da* * CHOLECALCIFEROL (VITAMIN D3) * Take 2 tablets by mouth once * * GLUCOSAMINE 375 MG-CHONDROITI* Take by mouth. taking 2 tabl* * MECLIZINE 25 MG TABLET 1 tablet three times daily as* * COMPOUNDED PRESCRIPTION CQ10 daily * FISH OIL 1,000 MG CAPSULE her dose is 1,200mg take one * * TY-C 500 MG CAPSULE Take one(1) capsule daily. * MULTIVITAMIN TABLET Take one(1) tablet daily. Problem List As Of Date 07/30/2018 Noted Resolved OVERWEIGHT [E66.9] Essential hypertension [I10] ESOPHAGEAL REFLUX [K21.9] More... GENERAL OSTEOARTHROSIS [M15.9] More... 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*05/25/2017 USP (current) use of anticoagulants [Z79.*INVALID FOR*05/25/2017 ER+ (estrogen receptor positive status) [Z17.0] INVALID FOR* Pulmonary embolism (HCC) [I26.99] INVALID FOR* Postmenopausal status (age-related) (natural) [*INVALID FOR* DJD (degenerative joint disease) [M19.90] INVALID FOR* Right leg pain [M79.604] INVALID FOR*05/25/2017 Trigger middle finger of right hand [M65.331] INVALID FOR* Trigger middle finger of left hand [M65.332] INVALID FOR* Trigger thumb of right hand [M65.311] INVALID FOR* Trigger thumb of left hand [M65.312] INVALID FOR* Osteopenia [M85.80] INVALID FOR*02/19/2014 Osteopenia [M85.80] INVALID FOR* Capsulitis [M77.9] INVALID FOR*05/25/2017 Tendonitis [M77.9] INVALID FOR*05/25/2017 Capsulitis of ankle [M77.50] INVALID FOR* Osteoarthritis [M19.90] INVALID FOR* Personal history of colonic polyps [Z86.010] INVALID FOR* Ocular migraine [G43.109] INVALID FOR* Gastroesophageal reflux disease without esophag*INVALID FOR* History of lacunar cerebrovascular accident (CV*INVALID FOR* Ischemic cerebrovascular accident (CVA) of fron*INVALID FOR* More... Bilateral carotid artery stenosis [I65.23] INVALID FOR* Arachnoid cyst [G93.0] INVALID FOR* Malignant neoplasm of lower-inner quadrant of l*INVALID FOR* Encounter Status:Closed by KIM BEVERLY CMA on 07/30/18 PROGRESS Observed: 07/26/2018 Status: COMPLETED Source: [place] 8:[address] [facility] REPOSITORY O ID: [id number] Author: Kim Beverly [facility] Service: (none) Author Type: (none) Type: Progress Notes Filed: 07/30/2018 10:27 AM Note Text: 68 year old female here for INACTIVATED INFLUENZA VACCINE. 2426-8668 Season Patient is identified by name and date of : Yes [] CONTRAINDICATIONS color enhanced section Age less than 6 months? No Allergy to eggs, chicken, chicken feathers, or chicken dander? No Allergy to thimerosal (a preservative) or formaldehyde, gelatin? No History of severe reaction to any vaccine component or a previous dose of influenza vaccination? No History of Guillain-Sequim Syndrome within 6 weeks after a previous influenza vaccine? No Patient is not moderately or severely ill? No Current temperature greater or equal to 100.4F? No History of Bone Marrow Transplant prior 6 months or solid organ transplant in the past 3 months ? No History of fainting after a prior injection or medical procedure? No- ? If patient has fainted in the past, the CDC recommends sitting or lying down for 15 minutes after the vaccination. [] VERIFICATION color enhanced section Was the answer Yes for any of the above contraindications? No contraindications present. Acceptable to proceed with vaccine. Patient/guardian agrees the above answers are true to the best of their knowledge? Yes Flu vaccine information sheet given? Yes See immunization activity in [facility] for details of immunizations adminstered today. Patient age: [age] year old For The 8684-7763 Flu Season 6-35 months old: Fluzone 0.25 ml - IM (Preservative Free) 3 years of age: Fluzone 0.5 ml - IM (Preservative Free) 3 years and older: Fluzone 0.5 ml- IM-(with Preservatives) 65+ years old: 2-49 years old Fluzone High-Dose 0.5 ml - IM (Preservative Free) FLUMIST- intranasal REMEMBER: If patient is less than 9 years of age and this is the first vaccine of Influenza to be received in any flu season, they should receive a second dose in one months time. PROGRESS Observed: 07/12/2018 Status: COMPLETED Source: [place] 10:[address] [facility] [place] REPOSITORY O ID: [id number] Author: Xander Gunn Service: (none) Author Type: Physician Type: Progress Notes Filed: 07/12/2018 10:53 AM Note Text: Patient presents with: F/U 6 months HPI: Patient presents today for office visit for follow up. HYPERTENSION: overall doing well. Gets occasional pressure. Had a stress echo in 2015. Was told by cardiology at the time of the testing as probably being related to her gerd. Has not changed at all since then. Gets chest pain and shortness of breath when she exerts herself. Wednesday noted it for instance walking up a hill. No cough or wheezing. HLD:feels well. No new mylgias. ONC: sees oncology. Will be following with them again this fall. Overall doing well. GERD:does have a hiatal hernia. Does not really watch her diet. No changes in the bowels. Occasional acid brash but is very rare. OA:uses celebrex. Still with some arthritis pain. Originally placed by Dr. Padron. No new issues. Multiple areas are bothering her Trigger finger. Not any better since surgery. Has had an injection. Ddd: stable. Did not do physical therapy. Component Latest Ref Rng AND Units 07/05/2018 Glucose 74 - 99 mg/dL 104 (H) BUN 7 - 21 mg/dL 18 Creatinine 0.58 - 0.96 mg/dL 0.74 Sodium 136 - 144 mmol/L 142 Potassium 3.7 - 5.1 mmol/L 4.1 Chloride 97 - 105 mmol/L 103 CO2 22 - 30 mmol/L 24 Anion Gap 9 - 18 mmol/L 15 Calcium 8.5 - 10.2 mg/dL 9.5 eGFR- >60 eGFR-All Other Races . >60 MEDICATIONS: Current Outpatient Prescriptions: simvastatin (ZOCOR) 10 mg tablet Take 1 tablet by mouth once daily. lisinopril-hydrochlorothiazide (PRINZIDE,ZESTORETIC) 10-12.5 mg per tablet Take 1 tablet by mouth once daily. celecoxib (CELEBREX) 200 mg capsule Take 1 capsule by mouth once daily. esomeprazole (NEXIUM) 20 mg capsule Take 20 mg by mouth once daily. aspirin, enteric coated (ADULT LOW DOSE ASPIRIN) 81 mg EC tablet Take 2 tablets by mouth once daily. folic acid 800 mcg tablet Take 800 mcg by mouth once daily. Cholecalciferol, Vitamin D3, (VITAMIN D) 1,000 unit Tab Take 2 tablets by mouth once daily. [id number]-ecoronwgls-uvd#182 (COSAMIN ASU) 375-200-100 mg ORAL Cap Take by mouth. taking 2 tablets once daily meclizine 25 mg ORAL Tab 1 tablet three times daily as needed. COMPOUNDED PRESCRIPTION CQ10 daily omega-3 fatty acids/vitamin e(FISH OIL 1,000 MG CAP) her dose is 1,200mg take one cap daily TY-C 500 MG CAP Take one(1) capsule daily. MULTIVITAMIN TAB Take one(1) tablet daily. No current facility-administered medications for this visit. ALLERGIES: ALLERGIES Allergen Reactions - Penicillins Anaphylaxis - Vicodin [Hydrocodon* Vomiting - Claritin [Loratadin* Hives PAST MEDICAL HISTORY Diagnosis Date - Acute gastritis without mention of hemorrhage - Benign neoplasm of colon - Diaphragmatic hernia without mention of obstruction or gangrene - Esophageal reflux GERD - Generalized osteoarthrosis, unspecified site osteoarthritis - Malignant neoplasm of breast (female), unspecified site 2008 Breast cancer, left - Obesity, unspecified - Osteoporosis, unspecified - Other and unspecified hyperlipidemia - Personal history of poliomyelitis POLIOMYELITIS PERSONAL HISTORY OF - Pulmonary embolism (HCC) - Unspecified essential hypertension PAST SURGICAL HISTORY Procedure Laterality Date - APPENDECTOMY - BX BREAST PERC VACUUM/ROTN left breast - DELIVERY ONLY , low cervical - COLONOS W/REM POLYP SNARE polpy in cecum - COLONOSCOP W/ OR W/O [facility] SPEC 05/18/14 normal - EGD W/O [facility] SPECIMEN W/BX gastritis, hiatal hernia - INCISE FINGER TENDON SHEATH Right 01/28/2018 Right middle trigger finger release - MASTECTOMY, PARTIAL Lump ax - neg LN - Tcis/1aN0M0 - PAST SURGICAL HISTORY OF HEEL SPURS - RADIAL KERATOTOMY 1982 Bilateral - REMOVAL GALLBLADDER 12/01/2006 Cholecystectomy - TOTAL ABDOM HYSTERECTOMY 1992 Hysterectomy, CARYN BSO FAMILY HISTORY Problem Relation Age of Onset - Coronary Artery Disease Mother - Stroke Mother - other (AF) Mother - other (pulmonary embolus) Father - other (pulmon embolism) Father 42 - other (polio) Sister - Stroke Brother Social History Marital status: Spouse name: Years of education: 12 Number of children: 1 Occupational History Occupation Employer Comment [employer]* Social History Main Topics Smoking status: Never Smoker Smokeless tobacco: Never Used Alcohol use: No Drug use: No Sexual activity: No Comment: HYSTERECTOMY Reviewed current medications, allergies, past medical history, surgical history, family history and social history today. REVIEW OF SYSTEMS GI: Negative for change in bowel habit : Negative All other reviewed and negative other than HPI. HEALTH MAINTENANCE: Reviewed health maintenance issues today and recommended the following in detail. BP CONTROLLED (<130/80) due on 1967 INFLUENZA-has appt made VITALS: BP 138/82 Pulse 64 Temp 36.8 ?C (98.3 ?F) (Tympanic) Resp 20 Wt 110.2 kg (243 lb) BMI 36.41 kg/m? Last 4 Encounter Wt Readings: Date: Wt: 07/12/2018 110.2 kg (243 lb) 01/17/2018 108.9 kg (240 lb) 01/17/2018 109.8 kg (242 lb) 08/31/2017 109.5 kg (241 lb 8 oz) PHYSICAL EXAMINATION: General appearance: Well appearing, alert, in no acute distress, well-hydrated, well nourished. Skin: Skin color, texture, turgor normal, no suspicious rashes or lesions Head: Normocephalic, no masses, lesions, tenderness or abnormalities Neck: Supple, no adenopathy; thyroid symmetric, normal size, no bruits Lungs: Lungs clear to auscultation. No wheezing, rhonchi, rales Heart: RRR without murmur, gallop, or rubs. No ectopy Abdomen: Normal abdominal exam, Abdomen soft, non-tender. Bowel sounds normal. No masses, organomegaly Extremities: No deformities, edema, skin discoloration, clubbing or cyanosis. Good capillary refill. Musculoskeletal: No joint swelling, deformity, or tenderness PSYCH:Affect normal. Normal speech. Normal eye contact ASSESSMENT/PLAN: 1. Bilateral carotid artery stenosis - ICD9: 433.10, 433.30, ICD10: I65.23 (primary diagnosis) - reevlauate testing. Vascular If needed. - US CAROTID ARTERIES [facility] 2. Essential hypertension - ICD9: 401.9, ICD10: I10 - good control - Continue current medication(s) - Encouraged dietary sodium restriction/DASH diet - Goal of BP <140/90 3. Gastroesophageal reflux disease without esophagitis - ICD9: 530.81, ICD10: K21.9 - Continue current medications. Notify us if any difficulties are noted. 4. Ischemic cerebrovascular accident (CVA) of frontal lobe (HCC) - ICD9: 434.91, ICD10: I63.9 - call if any issues. 5. Malignant neoplasm of lower-inner quadrant of left breast in female, estrogen receptor positive (HCC) - ICD9: 174.3, V86.0, ICD10: C50.312, Z17.0 - follow with oncology 6. Mixed hyperlipidemia - ICD9: 272.2, ICD10: E78.2 - good control - Continue current medication. - COMP METABOLIC PANEL - LIPID PANEL BASIC 7. Chest pain, unspecified type - ICD9: 786.50, ICD10: R07.9 - refuses to do ecg. Will refer to cardiology. To ER if recurs 8. Generalized OA - ICD9: 715.00, ICD10: M15.9 - CELECOXIB 200 MG CAPSULE 9. History of lacunar cerebrovascular accident (CVA) - ICD9: V12.54, ICD10: Z86.73 Xander Gunn MD RTO in six months and prn. CNOV Observed: 07/12/2018 Status: COMPLETED Source: [place] 10:00 AM [facility] REPOSITORY [facility] PENELOPE CEDILLO ([id number]) 1950 F Date Time Provider Department 07/12/18 10:00 AM XANDER GUNN During your visit today, we recorded the following information about you: Temperature Pulse Respiration Blood pressure 98.3 degrees 64/minute 20/minute 138/82 Weight 110.2 kg Xander Gunn MD 07/12/2018 10:53 AM Signed Patient presents with: F/U 6 months HPI: Patient presents today for office visit for follow up. HYPERTENSION: overall doing well. Gets occasional pressure. Had a stress echo in 2015. Was told by cardiology at the time of the testing as probably being related to her gerd. Has not changed at all since then. Gets chest pain and shortness of breath when she exerts herself. Wednesday noted it for instance walking up a hill. No cough or wheezing. HLD:feels well. No new mylgias. ONC: sees oncology. Will be following with them again this fall. Overall doing well. GERD:does have a hiatal hernia. Does not really watch her diet. No changes in the bowels. Occasional acid brash but is very rare. OA:uses celebrex. Still with some arthritis pain. Originally placed by Dr. Padron. No new issues. Multiple areas are bothering her Trigger finger. Not any better since surgery. Has had an injection. Ddd: stable. Did not do physical therapy. Component Latest Ref Rng AND Units 07/05/2018 Glucose 74 - 99 mg/dL 104 (H) BUN 7 - 21 mg/dL 18 Creatinine 0.58 - 0.96 mg/dL 0.74 Sodium 136 - 144 mmol/L 142 Potassium 3.7 - 5.1 mmol/L 4.1 Chloride 97 - 105 mmol/L 103 CO2 22 - 30 mmol/L 24 Anion Gap 9 - 18 mmol/L 15 Calcium 8.5 - 10.2 mg/dL 9.5 eGFR- >60 eGFR-All Other Races . >60 MEDICATIONS: Current Outpatient Prescriptions: simvastatin (ZOCOR) 10 mg tablet Take 1 tablet by mouth once daily. lisinopril-hydrochlorothiazide (PRINZIDE,ZESTORETIC) 10-12.5 mg per tablet Take 1 tablet by mouth once daily. celecoxib (CELEBREX) 200 mg capsule Take 1 capsule by mouth once daily. esomeprazole (NEXIUM) 20 mg capsule Take 20 mg by mouth once daily. aspirin, enteric coated (ADULT LOW DOSE ASPIRIN) 81 mg EC tablet Take 2 tablets by mouth once daily. folic acid 800 mcg tablet Take 800 mcg by mouth once daily. Cholecalciferol, Vitamin D3, (VITAMIN D) 1,000 unit Tab Take 2 tablets by mouth once daily. ahxfiwoobnm-oadcedmqsr-aqk#182 (COSAMIN ASU) 375-200-100 mg ORAL Cap Take by mouth. taking 2 tablets once daily meclizine 25 mg ORAL Tab 1 tablet three times daily as needed. COMPOUNDED PRESCRIPTION CQ10 daily omega-3 fatty acids/vitamin e(FISH OIL 1,000 MG CAP) her dose is 1,200mg take one cap daily TY-C 500 MG CAP Take one(1) capsule daily. MULTIVITAMIN TAB Take one(1) tablet daily. No current facility-administered medications for this visit. ALLERGIES: ALLERGIES Allergen Reactions - Penicillins Anaphylaxis - Vicodin [Hydrocodon* Vomiting - Claritin [Loratadin* Hives PAST MEDICAL HISTORY Diagnosis Date - Acute gastritis without mention of hemorrhage - Benign neoplasm of colon - Diaphragmatic hernia without mention of obstruction or gangrene - Esophageal reflux GERD - Generalized osteoarthrosis, unspecified site osteoarthritis - Malignant neoplasm of breast (female), unspecified site 2008 Breast cancer, left - Obesity, unspecified - Osteoporosis, unspecified - Other and unspecified hyperlipidemia - Personal history of poliomyelitis POLIOMYELITIS PERSONAL HISTORY OF - Pulmonary embolism (HCC) - Unspecified essential hypertension PAST SURGICAL HISTORY Procedure Laterality Date - APPENDECTOMY - BX BREAST PERC VACUUM/ROTN left breast - DELIVERY ONLY , low cervical - COLONOS W/REM POLYP SNARE polpy in cecum - COLONOSCOP W/ OR W/O [facility] SPEC 05/18/14 normal - EGD W/O [facility] SPECIMEN W/BX gastritis, hiatal hernia - INCISE FINGER TENDON SHEATH Right 01/28/2018 Right middle trigger finger release - MASTECTOMY, PARTIAL Lump ax - neg LN - Tcis/1aN0M0 - PAST SURGICAL HISTORY OF HEEL SPURS - RADIAL KERATOTOMY 1981 Bilateral - REMOVAL GALLBLADDER 12/01/2006 Cholecystectomy - TOTAL ABDOM HYSTERECTOMY 1992 Hysterectomy, CARYN BSO FAMILY HISTORY Problem Relation Age of Onset - Coronary Artery Disease Mother - Stroke Mother - other (AF) Mother - other (pulmonary embolus) Father - other (pulmon embolism) Father 42 - other (polio) Sister - Stroke Brother Social History Marital status: Spouse name: Years of education: 12 Number of children: 1 Occupational History Occupation Employer Comment [employer]* Social History Main Topics Smoking status: Never Smoker Smokeless tobacco: Never Used Alcohol use: No Drug use: No Sexual activity: No Comment: HYSTERECTOMY Reviewed current medications, allergies, past medical history, surgical history, family history and social history today. REVIEW OF SYSTEMS GI: Negative for change in bowel habit : Negative All other reviewed and negative other than HPI. HEALTH MAINTENANCE: Reviewed health maintenance issues today and recommended the following in detail. BP CONTROLLED (<130/80) due on 1967 INFLUENZA-has appt made VITALS: BP 138/82 Pulse 64 Temp 36.8 ?C (98.3 ?F) (Tympanic) Resp 20 Wt 110.2 kg (243 lb) BMI 36.41 kg/m? Last 4 Encounter Wt Readings: Date: Wt: 07/12/2018 110.2 kg (243 lb) 01/17/2018 108.9 kg (240 lb) 01/17/2018 109.8 kg (242 lb) 08/31/2017 109.5 kg (241 lb 8 oz) PHYSICAL EXAMINATION: General appearance: Well appearing, alert, in no acute distress, well-hydrated, well nourished. Skin: Skin color, texture, turgor normal, no suspicious rashes or lesions Head: Normocephalic, no masses, lesions, tenderness or abnormalities Neck: Supple, no adenopathy; thyroid symmetric, normal size, no bruits Lungs: Lungs clear to auscultation. No wheezing, rhonchi, rales Heart: RRR without murmur, gallop, or rubs. No ectopy Abdomen: Normal abdominal exam, Abdomen soft, non-tender. Bowel sounds normal. No masses, organomegaly Extremities: No deformities, edema, skin discoloration, clubbing or cyanosis. Good capillary refill. Musculoskeletal: No joint swelling, deformity, or tenderness PSYCH:Affect normal. Normal speech. Normal eye contact ASSESSMENT/PLAN: 1. Bilateral carotid artery stenosis - ICD9: 433.10, 433.30, ICD10: I65.23 (primary diagnosis) - forrestuate testing. Vascular If needed. - US CAROTID ARTERIES [facility] 2. Essential hypertension - ICD9: 401.9, ICD10: I10 - good control - Continue current medication(s) - Encouraged dietary sodium restriction/DASH diet - Goal of BP <140/90 3. Gastroesophageal reflux disease without esophagitis - ICD9: 530.81, ICD10: K21.9 - Continue current medications. Notify us if any difficulties are noted. 4. Ischemic cerebrovascular accident (CVA) of frontal lobe (HCC) - ICD9: 434.91, ICD10: I63.9 - call if any issues. 5. Malignant neoplasm of lower-inner quadrant of left breast in female, estrogen receptor positive (HCC) - ICD9: 174.3, V86.0, ICD10: C50.312, Z17.0 - follow with oncology 6. Mixed hyperlipidemia - ICD9: 272.2, ICD10: E78.2 - good control - Continue current medication. - COMP METABOLIC PANEL - LIPID PANEL BASIC 7. Chest pain, unspecified type - ICD9: 786.50, ICD10: R07.9 - refuses to do ecg. Will refer to cardiology. To ER if recurs 8. Generalized OA - ICD9: 715.00, ICD10: M15.9 - CELECOXIB 200 MG CAPSULE 9. History of lacunar cerebrovascular accident (CVA) - ICD9: V12.54, ICD10: Z86.73 Xander Gunn MD RTO in six months and prn. Referring Provider: XANDER GUNN [[id number]] Allergies As of Date: 07/12/2018 Noted Allergy Reaction PENICILLINS 09/01/2005 10 - Anaphylaxis VICODIN (HYDROCODONE-ACETAMINOPHE*01/31/2009 11 - Vomiting CLARITIN (LORATADINE) 11/16/2005 4 - Hives Date Reviewed: 07/12/2018 Reviewed by: Erica Stevens LPN - Fully Assessed Reason for Visit: F/U 6 months [1177] Primary Visit Diagnosis:Bilateral carotid artery stenosis [I65.23] Other Visit Diagnoses:Essential hypertension [I10] Gastroesophageal reflux disease without esophagitis [K21.9] Ischemic cerebrovascular accident (CVA) of frontal lobe (HCC) [I63.9] Malignant neoplasm of lower-inner quadrant of left breast in female, estrogen receptor positive (HCC) [C50.312, Z17.0] Mixed hyperlipidemia [E78.2] Chest pain, unspecified type [R07.9] Generalized OA [M15.9] History of lacunar cerebrovascular accident (CVA) [Z86.73] Order(s):celecoxib (CELEBREX) 200 mg capsuleTake 1 capsule by mouth once daily.Disp: 90 capsuleRfl: 3 COMP METABOLIC PANEL [SQCMP] Order #: [id number] FUTURE LIPID PANEL BASIC [SQLIPB] Order #: [id number] FUTURE CAROTID ARTERIES [facility] [[id number]] Order #: [id number] FUTURE CONSULT TO CARDIOLOGY [9004] Order #: [id number]: 1 Prescriptions as of 07/12/2018 Sig: CELECOXIB 200 MG CAPSULE Take 1 capsule by mouth once * SIMVASTATIN 10 MG TABLET Take 1 tablet by mouth once d* LISINOPRIL 10 MG-HYDROCHLOROT* Take 1 tablet by mouth once d* ESOMEPRAZOLE MAGNESIUM 20 MG * Take 20 mg by mouth once micheal* ASPIRIN 81 MG TABLET,DELAYED * Take 2 tablets by mouth once * FOLIC ACID 800 MCG TABLET Take 800 mcg by mouth once da* * CHOLECALCIFEROL (VITAMIN D3) * Take 2 tablets by mouth once * * GLUCOSAMINE 375 MG-CHONDROITI* Take by mouth. taking 2 tabl* * MECLIZINE 25 MG TABLET 1 tablet three times daily as* * COMPOUNDED PRESCRIPTION CQ10 daily * FISH OIL 1,000 MG CAPSULE her dose is 1,200mg take one * * TY-C 500 MG CAPSULE Take one(1) capsule daily. * MULTIVITAMIN TABLET Take one(1) tablet daily. Problem List As Of Date 07/12/2018 Noted Resolved OVERWEIGHT [E66.9] Essential hypertension [I10] ESOPHAGEAL REFLUX [K21.9] More... GENERAL OSTEOARTHROSIS [M15.9] More... 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*05/25/2017 USP (current) use of anticoagulants [Z79.*INVALID FOR*05/25/2017 ER+ (estrogen receptor positive status) [Z17.0] INVALID FOR* Pulmonary embolism (HCC) [I26.99] INVALID FOR* Postmenopausal status (age-related) (natural) [*INVALID FOR* DJD (degenerative joint disease) [M19.90] INVALID FOR* Right leg pain [M79.604] INVALID FOR*05/25/2017 Trigger middle finger of right hand [M65.331] INVALID FOR* Trigger middle finger of left hand [M65.332] INVALID FOR* Trigger thumb of right hand [M65.311] INVALID FOR* Trigger thumb of left hand [M65.312] INVALID FOR* Osteopenia [M85.80] INVALID FOR*02/19/2014 Osteopenia [M85.80] INVALID FOR* Capsulitis [M77.9] INVALID FOR*05/25/2017 Tendonitis [M77.9] INVALID FOR*05/25/2017 Capsulitis of ankle [M77.50] INVALID FOR* Osteoarthritis [M19.90] INVALID FOR* Personal history of colonic polyps [Z86.010] INVALID FOR* Ocular migraine [G43.109] INVALID FOR* Gastroesophageal reflux disease without esophag*INVALID FOR* History of lacunar cerebrovascular accident (CV*INVALID FOR* Ischemic cerebrovascular accident (CVA) of fron*INVALID FOR* More... Bilateral carotid artery stenosis [I65.23] INVALID FOR* Arachnoid cyst [G93.0] INVALID FOR* Malignant neoplasm of lower-inner quadrant of l*INVALID FOR* Prescriptions ordered this encounter Disp Refills Start End CELECOXIB 200 MG CAPSULE 90 c* 3 07/12/2018 Route: ORAL Sig: Take 1 capsule by mouth once daily. Medications Discontinued During This Encounter celecoxib (CELEBREX) 200 mg capsule 90 c* 3 09/02/2017 07/12/2018 Class: [employer] Route: ORAL Sig: Take 1 capsule by mouth once daily. Disc: Reason for discontinue is not on file. Disposition: Return in about 6 months (around 01/09/2019). Follow-up and Disposition History Recorded Encounter Status:Closed by XANDER GUNN MD on 07/12/18 BASIC METABOLIC PANL Collected: 07/05/2018 Status: F Source: [place] 8:[address] [facility] [place] REPOSITORY TYPE CODE TESTS RESULT OUT OF REFERENCE UNITS RANGE LAB GLU 74-99 mg/dL High Glucose 104 Result Comment: The [place] [employer] (ADA) provides guidance for cutoff values for fasting glucose and random glucose. The ADA defines fasting as no caloric intake for at least 8 hours. Fas ting plasma glucose results between 100 to 125 mg/dL indicate increased risk for diabetes (prediabetes). Fasting plasma glucose results greater than or equal to 126 mg/dL meet the criteria for diagnosis of diabetes. In the absence of unequivocal hyperglycemia, results should be confirmed by repeat testing. In a patient with classic symptoms of hyperglycemia or hyperglycemic crisis, random plasma glucose results greater than or equal to 200 mg/dL meet the criteria for diagnosis of diabetes. Reference: Standards of Medical Care in Diabetes 2016, [place] [employer]. Diabetes Care. 2016.39(Suppl 1). LAB BUN 7-21 mg/dL BUN 18 LAB CRET 0.58-0.96 mg/dL Creatinine 0.74 LAB NA 136-144 mmol/L Sodium 142 LAB K 3.7-5.1 mmol/L Potassium 4.1 LAB CL 97-105 mmol/L Chloride 103 LAB CO2 22-30 mmol/L CO2 24 LAB AGAP 9-18 mmol/L Anion Gap 15 LAB CA 8.5-10.2 mg/dL Calcium, Total 9.5 LAB GFRAA eGFR- Amer. >60 LAB GFRNAA . eGFR-All Other Races >60 Result Comment: eGFR (Estimated GFR) Units of measure: mL/min/1.73 meters squared eGFR is derived from the reexpressed MDRD Study equation using the following parameters: serum creatinine, age, gender and race. The creatinine assay has been calibrated to be traceable to IDMS. An eGFR <60 mL/min/1.73m2 for >3 months is consistent with chronic kidney disease. Refer to KDOQI guidelines for clinical interpretation. In patients with unstable renal function, e.g. those with acute kidney injury, the eGFR may not accurately reflect actual GFR. Performed By: #### BMP #### [facility] [address] [place] [address] [place]LOYDUT[place]PHANIA Observed: 06/07/2018 Status: COMPLETED Source: [place] 12:00 AM [facility] REPOSITORY Patient Outreach (FAMPST) PENELOPE CEDILLO ([id number]) 1950 F Date Time Provider Department 06/07/18 XANDER GUNN [facility] During your visit today, we recorded the following information about you: Allergies As of Date: 06/07/2018 Noted Allergy Reaction PENICILLINS 09/01/2005 10 - Anaphylaxis VICODIN (HYDROCODONE-ACETAMINOPHE*01/31/2009 11 - Vomiting CLARITIN (LORATADINE) 11/16/2005 4 - Hives Date Reviewed: 03/10/2018 Reviewed by: Mike Padron - Fully Assessed Visit Diagnosis:Medication management [Z79.899] Order(s):BASIC METABOLIC PNL [SQBMP] Order #: [id number] FUTURE Prescriptions as of 06/07/2018 Sig: SIMVASTATIN 10 MG TABLET Take 1 tablet by mouth once d* LISINOPRIL 10 MG-HYDROCHLOROT* Take 1 tablet by mouth once d* X CELECOXIB 200 MG CAPSULE Take 1 capsule by mouth once * ESOMEPRAZOLE MAGNESIUM 20 MG * Take 20 mg by mouth once micheal* ASPIRIN 81 MG TABLET,DELAYED * Take 2 tablets by mouth once * FOLIC ACID 800 MCG TABLET Take 800 mcg by mouth once da* * CHOLECALCIFEROL (VITAMIN D3) * Take 2 tablets by mouth once * * GLUCOSAMINE 375 MG-CHONDROITI* Take by mouth. taking 2 tabl* * MECLIZINE 25 MG TABLET 1 tablet three times daily as* * COMPOUNDED PRESCRIPTION CQ10 daily * FISH OIL 1,000 MG CAPSULE her dose is 1,200mg take one * * TY-C 500 MG CAPSULE Take one(1) capsule daily. * MULTIVITAMIN TABLET Take one(1) tablet daily. Problem List As Of Date 06/07/2018 Noted Resolved OVERWEIGHT [E66.9] Essential hypertension [I10] ESOPHAGEAL REFLUX [K21.9] More... GENERAL OSTEOARTHROSIS [M15.9] More... 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*05/25/2017 USP (current) use of anticoagulants [Z79.*INVALID FOR*05/25/2017 ER+ (estrogen receptor positive status) [Z17.0] INVALID FOR* Pulmonary embolism (HCC) [I26.99] INVALID FOR* Postmenopausal status (age-related) (natural) [*INVALID FOR* DJD (degenerative joint disease) [M19.90] INVALID FOR* Right leg pain [M79.604] INVALID FOR*05/25/2017 Trigger middle finger of right hand [M65.331] INVALID FOR* Trigger middle finger of left hand [M65.332] INVALID FOR* Trigger thumb of right hand [M65.311] INVALID FOR* Trigger thumb of left hand [M65.312] INVALID FOR* Osteopenia [M85.80] INVALID FOR*02/19/2014 Osteopenia [M85.80] INVALID FOR* Capsulitis [M77.9] INVALID FOR*05/25/2017 Tendonitis [M77.9] INVALID FOR*05/25/2017 Capsulitis of ankle [M77.50] INVALID FOR* Osteoarthritis [M19.90] INVALID FOR* Personal history of colonic polyps [Z86.010] INVALID FOR* Ocular migraine [G43.109] INVALID FOR* Gastroesophageal reflux disease without esophag*INVALID FOR* History of lacunar cerebrovascular accident (CV*INVALID FOR* Ischemic cerebrovascular accident (CVA) of fron*INVALID FOR* More... Carotid stenosis, bilateral [I65.23] INVALID FOR* Arachnoid cyst [G93.0] INVALID FOR* Malignant neoplasm of lower-inner quadrant of l*INVALID FOR* Encounter Status:Closed by EPIC, PRODUSER on 08/12/18 PROGRESS Observed: 03/10/2018 Status: COMPLETED Source: [place] 12:[address] [facility] [place] REPOSITORY HNO ID: [id number] Author: Mike Padron Service: (none) Author Type: Physician Type: Progress Notes Filed: 03/10/2018 1:03 PM Note Text: Mike Padron MD Department of Orthopaedics [facility] [address] [facility] [address] Dept: [phone] Dept March 10, 2018 CHIEF COMPLAINT: Post Op (5 week 6 days post op right middle trigger release ). ASSESSMENT: M65.331 Trigger middle finger of right hand (primary encounter diagnosis) SUMMARY/PLAN: patient is just shy of 6 weeks status post trigger release of the right middle finger. She is not having any locking of the digit, though continues with tightness and swelling centered over the PIP joint. She also gets some clicking and grinding of the finger which she is not pleased with. Pain can still be quite high at 7 out of 10. She has many concerns about the finger. First, intraoperatively, this was an extensively inflamed surgical problem. Unexpectedly, she's having some friction it seems, near the A2 kuldeep where he can feel palpable crepitance with motion and this appears to be where some of the clicking and grinding is occurring. With passive PIP motion, there does appear to be some ratcheting but again I believe this is over the P1 segment. I recommendation is for a cortisone injection to hopefully diminish more of the inflammation in this area. If symptoms persist, my recommendation would be for an ultrasound of the area. She certainly does not have any tenderness nor crepitance nor catching at the surgical site. I'll have her follow-up in about a month after the injection or at least to call with an update. Supporting Information Below: Medications: Current Outpatient Prescriptions: celecoxib (CELEBREX) 200 mg capsule Take 1 capsule by mouth once daily. simvastatin (ZOCOR) 10 mg tablet Take 1 tablet by mouth once daily. lisinopril-hydrochlorothiazide (PRINZIDE,ZESTORETIC) 10-12.5 mg per tablet Take 1 tablet by mouth once daily. esomeprazole (NEXIUM) 20 mg capsule Take 20 mg by mouth once daily. aspirin, enteric coated (ADULT LOW DOSE ASPIRIN) 81 mg EC tablet Take 2 tablets by mouth once daily. folic acid 800 mcg tablet Take 800 mcg by mouth once daily. Cholecalciferol, Vitamin D3, (VITAMIN D) 1,000 unit Tab Take 2 tablets by mouth once daily. [id number]-jvyrudrsyo-hyj#182 (COSAMIN ASU) 375-200-100 mg ORAL Cap Take by mouth. taking 2 tablets once daily meclizine 25 mg ORAL Tab 1 tablet three times daily as needed. COMPOUNDED PRESCRIPTION CQ10 daily omega-3 fatty acids/vitamin e(FISH OIL 1,000 MG CAP) her dose is 1,200mg take one cap daily TY-C 500 MG CAP Take one(1) capsule daily. MULTIVITAMIN TAB Take one(1) tablet daily. No current facility-administered medications for this visit. Allergies: Penicillins; Vicodin [Hydrocodone-Acetaminophen]; Claritin [Loratadine] This note was partially generated using Secure-NOK voice recognition system, and there may be some incorrect words, spellings, and punctuation that were not noted in checking the note before saving. Mike Padron MD PROGRESS Observed: 03/10/2018 Status: COMPLETED Source: [place] 9:27 AM [facility] REPOSITORY [facility] ID: [id number] Author: Steff Samson Ma Service: (none) Author Type: (none) Type: Progress Notes Filed: 03/10/2018 1:03 PM Note Text: AMB ROOMING INTAKE FLOWSHEET DATA Risk Screening Do you have concerns about personal safety or safety in the home?: No Pain Pain Score: 2/10 (as high as 7) Pain Location: Hand-Right Description: Sharp, Tightness (swelling, clicking and grinding) Duration Amount of Time: (post op) Frequency: Continuous Intervention: Other: See comment (none) Patient here today for 5 week 6 days post op right middle trigger finger release. Patient does have concerns that her symptoms have never went away and she wishes she would not have had the surgery. CNOV Observed: 03/10/2018 Status: COMPLETED Source: [place] 9:15 AM [facility] REPOSITORY Office Visit (BLANCAWS) PENELOPE CEDILLO ([id number]) 1950 F Date Time Provider Department 03/10/18 9:15 AM MIKE PADRON During your visit today, we recorded the following information about you: Steff Samson Ma 03/10/2018 1:03 PM Signed AMB ROOMING INTAKE FLOWSHEET DATA Risk Screening Do you have concerns about personal safety or safety in the home?: No Pain Pain Score: 2/10 (as high as 7) Pain Location: Hand-Right Description: Sharp, Tightness (swelling, clicking and grinding) Duration Amount of Time: (post op) Frequency: Continuous Intervention: Other: See comment (none) Patient here today for 5 week 6 days post op right middle trigger finger release. Patient does have concerns that her symptoms have never went away and she wishes she would not have had the surgery. Mike Padron 03/10/2018 1:03 PM Signed Mike Padron MD Department of Orthopaedics Orthopaedics [address] [place] [address] Dept: [phone] Dept March 10, 2018 CHIEF COMPLAINT: Post Op (5 week 6 days post op right middle trigger release ). ASSESSMENT: M65.331 Trigger middle finger of right hand (primary encounter diagnosis) SUMMARY/PLAN: patient is just shy of 6 weeks status post trigger release of the right middle finger. She is not having any locking of the digit, though continues with tightness and swelling centered over the PIP joint. She also gets some clicking and grinding of the finger which she is not pleased with. Pain can still be quite high at 7 out of 10. She has many concerns about the finger. First, intraoperatively, this was an extensively inflamed surgical problem. Unexpectedly, she's having some friction it seems, near the A2 kuldeep where he can feel palpable crepitance with motion and this appears to be where some of the clicking and grinding is occurring. With passive PIP motion, there does appear to be some ratcheting but again I believe this is over the P1 segment. I recommendation is for a cortisone injection to hopefully diminish more of the inflammation in this area. If symptoms persist, my recommendation would be for an ultrasound of the area. She certainly does not have any tenderness nor crepitance nor catching at the surgical site. I'll have her follow-up in about a month after the injection or at least to call with an update. Supporting Information Below: Medications: Current Outpatient Prescriptions: celecoxib (CELEBREX) 200 mg capsule Take 1 capsule by mouth once daily. simvastatin (ZOCOR) 10 mg tablet Take 1 tablet by mouth once daily. lisinopril-hydrochlorothiazide (PRINZIDE,ZESTORETIC) 10-12.5 mg per tablet Take 1 tablet by mouth once daily. esomeprazole (NEXIUM) 20 mg capsule Take 20 mg by mouth once daily. aspirin, enteric coated (ADULT LOW DOSE ASPIRIN) 81 mg EC tablet Take 2 tablets by mouth once daily. folic acid 800 mcg tablet Take 800 mcg by mouth once daily. Cholecalciferol, Vitamin D3, (VITAMIN D) 1,000 unit Tab Take 2 tablets by mouth once daily. oxdidnvhtnp-wzeasghtts-pee#182 (COSAMIN ASU) 375-200-100 mg ORAL Cap Take by mouth. taking 2 tablets once daily meclizine 25 mg ORAL Tab 1 tablet three times daily as needed. COMPOUNDED PRESCRIPTION CQ10 daily omega-3 fatty acids/vitamin e(FISH OIL 1,000 MG CAP) her dose is 1,200mg take one cap daily TY-C 500 MG CAP Take one(1) capsule daily. MULTIVITAMIN TAB Take one(1) tablet daily. No current facility-administered medications for this visit. Allergies: Penicillins; Vicodin [Hydrocodone-Acetaminophen]; Claritin [Loratadine] This note was partially generated using Secure-NOK voice recognition system, and there may be some incorrect words, spellings, and punctuation that were not noted in checking the note before saving. Mike Padron MD Referring Provider: MIKE PADRON [[id number]] Allergies As of Date: 03/10/2018 Noted Allergy Reaction PENICILLINS 09/01/2005 10 - Anaphylaxis VICODIN (HYDROCODONE-ACETAMINOPHE*01/31/2009 11 - Vomiting CLARITIN (LORATADINE) 11/16/2005 4 - Hives Date Reviewed: 03/10/2018 Reviewed by: Mike Padron - Fully Assessed Reason for Visit: Post Op [174] Cmt: 5 week 6 days post op right middle trigger release Primary Visit Diagnosis:Trigger middle finger of right hand [M65.331] Order(s):betamethasone acetate-betamethasone sodium phosphate 3 mg, lidocaine (PF) 10 mg/mL (1 %) 5 mgDisp: Rfl: Prescriptions as of 03/10/2018 Sig: CELECOXIB 200 MG CAPSULE Take 1 capsule by mouth once * SIMVASTATIN 10 MG TABLET Take 1 tablet by mouth once d* LISINOPRIL 10 MG-HYDROCHLOROT* Take 1 tablet by mouth once d* ESOMEPRAZOLE MAGNESIUM 20 MG * Take 20 mg by mouth once micheal* ASPIRIN 81 MG TABLET,DELAYED * Take 2 tablets by mouth once * FOLIC ACID 800 MCG TABLET Take 800 mcg by mouth once da* * CHOLECALCIFEROL (VITAMIN D3) * Take 2 tablets by mouth once * * GLUCOSAMINE 375 MG-CHONDROITI* Take by mouth. taking 2 tabl* * MECLIZINE 25 MG TABLET 1 tablet three times daily as* * COMPOUNDED PRESCRIPTION CQ10 daily * FISH OIL 1,000 MG CAPSULE her dose is 1,200mg take one * * TY-C 500 MG CAPSULE Take one(1) capsule daily. * MULTIVITAMIN TABLET Take one(1) tablet daily. Problem List As Of Date 03/10/2018 Noted Resolved OVERWEIGHT [E66.9] Essential hypertension [I10] ESOPHAGEAL REFLUX [K21.9] More... GENERAL OSTEOARTHROSIS [M15.9] More... 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*05/25/2017 USP (current) use of anticoagulants [Z79.*INVALID FOR*05/25/2017 ER+ (estrogen receptor positive status) [Z17.0] INVALID FOR* Pulmonary embolism (HCC) [I26.99] INVALID FOR* Postmenopausal status (age-related) (natural) [*INVALID FOR* DJD (degenerative joint disease) [M19.90] INVALID FOR* Right leg pain [M79.604] INVALID FOR*05/25/2017 Trigger middle finger of right hand [M65.331] INVALID FOR* Trigger middle finger of left hand [M65.332] INVALID FOR* Trigger thumb of right hand [M65.311] INVALID FOR* Trigger thumb of left hand [M65.312] INVALID FOR* Osteopenia [M85.80] INVALID FOR*02/19/2014 Osteopenia [M85.80] INVALID FOR* Capsulitis [M77.9] INVALID FOR*05/25/2017 Tendonitis [M77.9] INVALID FOR*05/25/2017 Capsulitis of ankle [M77.50] INVALID FOR* Osteoarthritis [M19.90] INVALID FOR* Personal history of colonic polyps [Z86.010] INVALID FOR* Ocular migraine [G43.109] INVALID FOR* Gastroesophageal reflux disease without esophag*INVALID FOR* History of lacunar cerebrovascular accident (CV*INVALID FOR* Ischemic cerebrovascular accident (CVA) of fron*INVALID FOR* More... Carotid stenosis, bilateral [I65.23] INVALID FOR* Arachnoid cyst [G93.0] INVALID FOR* Malignant neoplasm of lower-inner quadrant of l*INVALID FOR* Prescriptions ordered this encounter Disp Refills Start End [facility] 03/10/2018 03/10/2018 Class: Suppress Questions Route: [facility] Encounter Status:Closed by MIKE PADRON MD on 03/10/18 PROGRESS Observed: 02/07/2018 Status: COMPLETED Source: [place] 10:[address] [facility] [place] REPOSITORY HNO ID: [id number] Author: Olive Valencia (Pa) Service: (none) Author Type: Physician Transfer Controller Type: Progress Notes Filed: 02/07/2018 11:57 AM Note Text: Olive Valencai PA-C Department of Orthopaedics Orthopa[facility] [address] [place] [address] Dept: [phone] Dept February 07, 2018 CHIEF COMPLAINT: Surgical Followup (10 days post op right middle trigger finger release and suture removal). ASSESSMENT: M65.331 Trigger middle finger of right hand (primary encounter diagnosis) SUMMARY/PLAN: Patient presents 10 days status post right middle trigger finger release. Patient denies any pain but notes that she is having some soreness near her incision site and at the PIP joint. Patient denies any locking but notes that her finger is catching when she extends. Patient removed her own sutures on February 04. She was encouraged to continue icing and elevating for discomfort, continue to work on gentle flexion and extension exercises. We will see her back next month for her second follow-up. Exam: Incision site is well healed without evidence of erythema, discharge or drainage. Patient is able to fully flex and extend right middle finger without locking. Patient notes some subjective catching of the finger with extension. Patient has tenderness to palpation near the incision site and at the PIP joint of the right middle finger. Patient is neurologically intact. Imaging: Deferred today Ms. Penelope Cedillo was advised as to contrast therapies and/or to take analgesics/anti-inflammatories as needed and all contraindications were reviewed. Supporting Information Below: Medications: Current Outpatient Prescriptions: celecoxib (CELEBREX) 200 mg capsule Take 1 capsule by mouth once daily. simvastatin (ZOCOR) 10 mg tablet Take 1 tablet by mouth once daily. lisinopril-hydrochlorothiazide (PRINZIDE,ZESTORETIC) 10-12.5 mg per tablet Take 1 tablet by mouth once daily. esomeprazole (NEXIUM) 20 mg capsule Take 20 mg by mouth once daily. aspirin, enteric coated (ADULT LOW DOSE ASPIRIN) 81 mg EC tablet Take 2 tablets by mouth once daily. Cholecalciferol, Vitamin D3, (VITAMIN D) 1,000 unit Tab Take 2 tablets by mouth once daily. hkwupugrzjv-auyeesvhnn-smi#182 (COSAMIN ASU) 375-200-100 mg ORAL Cap Take by mouth. taking 2 tablets once daily meclizine 25 mg ORAL Tab 1 tablet three times daily as needed. COMPOUNDED PRESCRIPTION CQ10 daily omega-3 fatty acids/vitamin e(FISH OIL 1,000 MG CAP) her dose is 1,200mg take one cap daily TY-C 500 MG CAP Take one(1) capsule daily. MULTIVITAMIN TAB Take one(1) tablet daily. folic acid 800 mcg tablet Take 800 mcg by mouth once daily. No current facility-administered medications for this visit. Allergies: Penicillins; Vicodin [Hydrocodone-Acetaminophen]; Claritin [Loratadine] This note was partially generated using Secure-NOK voice recognition system, and there may be some incorrect words, spellings, and punctuation that were not noted in checking the note before saving. SEB Macdonald Observed: 02/07/2018 Status: COMPLETED Source: [place] 10:00 AM [facility] REPOSIT[facility] Office Visit (ORTHWS) PENELOPE CEDILLO ([id number]) 1950 F Date Time Provider Department 02/07/18 10:00 AM OLIVE VALENCIA (PA) During your visit today, we recorded the following information about you: Shana Saravia Ma 02/07/2018 11:57 AM Signed Patient presents with: Surgical Followup: 10 days post op right middle trigger finger release and suture removal AMB ROOMING INTAKE FLOWSHEET DATA Risk Screening Do you have concerns about personal safety or safety in the home?: No Patient states the bottom stitch was not tied when she removed the dressing and came out. Removed the top stitch on Wednesday02/04/18 at home. No drainage or redness at incision site. Patient states her finger is still making a clicking noise. She able to make a fist. Olive Valencia PA-C 02/07/2018 11:57 AM Signed Olive Valencia PA-C Department of Orthopaedics Orthopaedics [address] [place] [address] Dept: [phone] Dept February 07, 2018 CHIEF COMPLAINT: Surgical Followup (10 days post op right middle trigger finger release and suture removal). ASSESSMENT: M65.331 Trigger middle finger of right hand (primary encounter diagnosis) SUMMARY/PLAN: Patient presents 10 days status post right middle trigger finger release. Patient denies any pain but notes that she is having some soreness near her incision site and at the PIP joint. Patient denies any locking but notes that her finger is catching when she extends. Patient removed her own sutures on February 04. She was encouraged to continue icing and elevating for discomfort, continue to work on gentle flexion and extension exercises. We will see her back next month for her second follow-up. Exam: Incision site is well healed without evidence of erythema, discharge or drainage. Patient is able to fully flex and extend right middle finger without locking. Patient notes some subjective catching of the finger with extension. Patient has tenderness to palpation near the incision site and at the PIP joint of the right middle finger. Patient is neurologically intact. Imaging: Deferred today Ms. Penelope Cedillo was advised as to contrast therapies and/or to take analgesics/anti-inflammatories as needed and all contraindications were reviewed. Supporting Information Below: Medications: Current Outpatient Prescriptions: celecoxib (CELEBREX) 200 mg capsule Take 1 capsule by mouth once daily. simvastatin (ZOCOR) 10 mg tablet Take 1 tablet by mouth once daily. lisinopril-hydrochlorothiazide (PRINZIDE,ZESTORETIC) 10-12.5 mg per tablet Take 1 tablet by mouth once daily. esomeprazole (NEXIUM) 20 mg capsule Take 20 mg by mouth once daily. aspirin, enteric coated (ADULT LOW DOSE ASPIRIN) 81 mg EC tablet Take 2 tablets by mouth once daily. Cholecalciferol, Vitamin D3, (VITAMIN D) 1,000 unit Tab Take 2 tablets by mouth once daily. nvjxtmmrdzi-fnvkiypvud-yak#182 (COSAMIN ASU) 375-200-100 mg ORAL Cap Take by mouth. taking 2 tablets once daily meclizine 25 mg ORAL Tab 1 tablet three times daily as needed. COMPOUNDED PRESCRIPTION CQ10 daily omega-3 fatty acids/vitamin e(FISH OIL 1,000 MG CAP) her dose is 1,200mg take one cap daily TY-C 500 MG CAP Take one(1) capsule daily. MULTIVITAMIN TAB Take one(1) tablet daily. folic acid 800 mcg tablet Take 800 mcg by mouth once daily. No current facility-administered medications for this visit. Allergies: Penicillins; Vicodin [Hydrocodone-Acetaminophen]; Claritin [Loratadine] This note was partially generated using Secure-NOK voice recognition system, and there may be some incorrect words, spellings, and punctuation that were not noted in checking the note before saving. Olive Valencia PA-C Referring Provider: MIKE PADRON [[id number]] Allergies As of Date: 02/07/2018 Noted Allergy Reaction PENICILLINS 09/01/2005 10 - Anaphylaxis VICODIN (HYDROCODONE-ACETAMINOPHE*01/31/2009 11 - Vomiting CLARITIN (LORATADINE) 11/16/2005 4 - Hives Date Reviewed: 02/07/2018 Reviewed by: Olive Valencia (Pa) - Fully Assessed Reason for Visit: Surgical Followup [104] Cmt: 10 days post op right middle trigger finger release and suture removal Primary Visit Diagnosis:Trigger middle finger of right hand [M65.331] Prescriptions as of 02/07/2018 Sig: CELECOXIB 200 MG CAPSULE Take 1 capsule by mouth once * SIMVASTATIN 10 MG TABLET Take 1 tablet by mouth once d* LISINOPRIL 10 MG-HYDROCHLOROT* Take 1 tablet by mouth once d* ESOMEPRAZOLE MAGNESIUM 20 MG * Take 20 mg by mouth once micheal* ASPIRIN 81 MG TABLET,DELAYED * Take 2 tablets by mouth once * * CHOLECALCIFEROL (VITAMIN D3) * Take 2 tablets by mouth once * * GLUCOSAMINE 375 MG-CHONDROITI* Take by mouth. taking 2 tabl* * MECLIZINE 25 MG TABLET 1 tablet three times daily as* * COMPOUNDED PRESCRIPTION CQ10 daily * FISH OIL 1,000 MG CAPSULE her dose is 1,200mg take one * * TY-C 500 MG CAPSULE Take one(1) capsule daily. * MULTIVITAMIN TABLET Take one(1) tablet daily. FOLIC ACID 800 MCG TABLET Take 800 mcg by mouth once da* Problem List As Of Date 02/07/2018 Noted Resolved OVERWEIGHT [E66.9] Essential hypertension [I10] ESOPHAGEAL REFLUX [K21.9] More... GENERAL OSTEOARTHROSIS [M15.9] More... 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*05/25/2017 USP (current) use of anticoagulants [Z79.*INVALID FOR*05/25/2017 ER+ (estrogen receptor positive status) [Z17.0] INVALID FOR* Pulmonary embolism (HCC) [I26.99] INVALID FOR* Postmenopausal status (age-related) (natural) [*INVALID FOR* DJD (degenerative joint disease) [M19.90] INVALID FOR* Right leg pain [M79.604] INVALID FOR*05/25/2017 Trigger middle finger of right hand [M65.331] INVALID FOR* Trigger middle finger of left hand [M65.332] INVALID FOR* Trigger thumb of right hand [M65.311] INVALID FOR* Trigger thumb of left hand [M65.312] INVALID FOR* Osteopenia [M85.80] INVALID FOR*02/19/2014 Osteopenia [M85.80] INVALID FOR* Capsulitis [M77.9] INVALID FOR*05/25/2017 Tendonitis [M77.9] INVALID FOR*05/25/2017 Capsulitis of ankle [M77.50] INVALID FOR* Osteoarthritis [M19.90] INVALID FOR* Personal history of colonic polyps [Z86.010] INVALID FOR* Ocular migraine [G43.109] INVALID FOR* Gastroesophageal reflux disease without esophag*INVALID FOR* History of lacunar cerebrovascular accident (CV*INVALID FOR* Ischemic cerebrovascular accident (CVA) of fron*INVALID FOR* More... Carotid stenosis, bilateral [I65.23] INVALID FOR* Arachnoid cyst [G93.0] INVALID FOR* Malignant neoplasm of lower-inner quadrant of l*INVALID FOR* Follow-up and Disposition History Recorded Encounter Status:Closed by OLIVE VALENCIA PA-C on 02/07/18 PROGRESS Observed: 02/07/2018 Status: COMPLETED Source: [place] 9:58 AM [facility] REPOSITORY HNO ID: [id number] Author: Shana Saravia Ma Service: (none) Author Type: (none) Type: Progress Notes Filed: 02/07/2018 11:57 AM Note Text: Patient presents with: Surgical Followup: 10 days post op right middle trigger finger release and suture removal AMB ROOMING INTAKE FLOWSHEET DATA Risk Screening Do you have concerns about personal safety or safety in the home?: No Patient states the bottom stitch was not tied when she removed the dressing and came out. Removed the top stitch on Wednesday02/04/18 at home. No drainage or redness at incision site. Patient states her finger is still making a clicking noise. She able to make a fist. PT ED Observed: 01/28/2018 Status: COMPLETED Source: [place] 11:39 AM [facility] REPOSITORY HNO ID: [id number] Author: Analisa SalamancaRn) INA Boone Service: Nursing Author Type: Registered Nurse Type: Patient Education Filed: 01/28/2018 11:39 AM Note Text: POST OP LEARNING RESPONSE INSTRUCTION PROVIDED TO: Patient METHOD OF INSTRUCTION: Written instruction - handouts Verbal instruction PATIENT / FAMILY RESPONSE: Information received as demonstrated by interest and questions FOLLOW-UP PLAN: Patient instructed to call with any further issues SUPPLEMENTAL MATERIAL: None REFERRAL (RECOMMENDATION): None Electronically Signed By: Analisa Boone RN In Department: [facility] SURGERY NURSING PROG Observed: 01/28/2018 Status: COMPLETED Source: [place] 11:35 AM [facility] REPOSITORY HNO ID: [id number] Author: Analisa SalamancaRn) INA Boone Service: Nursing Author Type: Registered Nurse Type: Nursing Progress Note Filed: 01/28/2018 11:37 AM Note Text: Pt to Phase 2 awake alert cap refill less than 3 sec skin pink warm dressing dry intact . OPERATIVE NO Observed: 01/28/2018 Status: COMPLETED Source: [place] 11:22 AM [facility] REPOSITORY HNO ID: [id number] Author: Mike Padron Service: Orthopaedic Surgery Author Type: Physician Type: Operative Report Filed: 01/28/2018 1:35 PM Note Text: OPERATIVE/PROCEDURE REPORT LOG ID: [id number] Surgery/Procedure Date: 01/28/2018 Incision/Procedure Start Time: 10:59 AM Incision Close/Procedure End Time: 11:14 AM Surgeon(s)/Proceduralist(s) and Transfer Controller(s): Surgeon(s) and Role: * Mike Padron - Primary Nurse Practitioner: Ilda Samaniego Physician Transfer Controller: Olive Valencia (Pa) Procedure(s): Right, middle finger trigger release. Anesthesia: Local Procedure Details: On 01/28/2018, the patient was clearly identified in the preoperative area and marked accordingly on the right middle finger by myself. In the pre-op area, the middle finger at the A1 kuldeep was injected with 1% lidocaine with 1:200,000 epi for a total of 3cc. She was taken to the operative suite and placed in the supine position with an armboard on the right. All other bony landmarks were appropriately padded in standard fashion. The arm was then sterilely prepped and draped in standard fashion. An appropriate time-out was conducted and all in the room were in agreement, signed consent form was on the chart. An incision was made over the A1 kuldeep of the middle finger on the right. This was done superficially with a 15 blade and blunt dissection was taken down longitudinally to the flexor apparatus. The digital nerves were clearly identified and protected throughout the case with Crile retractors. Under direct visualization, I divided the A1 kuldeep site of the thumb with a 15 blade. There was significant and impressive tenosynovitis and a synovectomy was made with Littler scissors. Some mild fraying of the superficialis tendon was also noted and this was debrided, with integrity of the tendon uncompromised. I used a Ragnell retractor to pull the tendon up through the wound confirming its complete release. I also had her look at the hand and pull through to a complete fist, showing no locking or catching. The wound was then copiously irrigated. Hemostasis was observed with bipolar electrocautery. Closure was done with 4-0 Monosof sutures in horizontal mattress fashion for a total of 2. Xeroform gauze, an eye patch, light [place] wrap and Coban was used for final bandage. There were no complications during the procedure. Patient was safely awoken and transferred to the Postanesthetic Care Unit in stable condition. Pre-Op/Pre-Procedure Diagnosis: Right, middle finger, trigger. Post-Op/Post-Procedure Diagnosis: same Estimated Blood Loss: 0 ml Specimens: None Implantable Devices: None Drains: None Complications: None I performed the procedure with assistance. No qualified resident/fellow was available. SIGNATURE: Mike Padron MD PATIENT NAME: Penelope Cedillo DATE: January 28, 2018 TIME: 11:22 AM PAGER/CONTACT #: PLAN OF CARE Observed: 01/28/2018 Status: COMPLETED Source: [place] 10:[address] [facility] REPOSITORY O ID: [id number] Author: Olive Valencia (Pa) Service: Orthopaedic Surgery Author Type: Physician Transfer Controller Type: Plan of Care Filed: 01/28/2018 10:31 AM Note Text: Mike Padron MD Department of Orthopaedics Orthopaedics [address] [place] [address] Dept: [phone] Dept ? ? January 17, 2018 ? ? CHIEF COMPLAINT: New Patient (Right middle trigger finger REF: [place] ) ? HPI: Ms. Penelope Cedillo is a 67 year old female who had previously been seen many years ago for some trigger finger problems. She states now the right, middle is giving her quite a bit of pain and is locking very frequently now. 2 out of 10 baseline discomfort, more when he gets locked. He previously had some injections which worked on the other hand. ? ASSESSMENT: M65.331 Trigger middle finger of right hand (primary encounter diagnosis) ? PLAN: we discussed both nonoperative and operative care again. The risks, benefits, alternatives and potential Medications were reviewed and she would like to pursue surgery. ? FOLLOW UP INSTRUCTIONS: We'll schedule under local anesthetic. ? OBJECTIVE: Ms. Penelope Cedillo is a pleasant 67 year old in no apparent distress. Gen:BP 156/84 Pulse 70 Ht 5' 8.5 (1.74m) Wt 242 lb (109.8kg) BMI 36.26 kg/(m2). nl development, obese, no deformities ENT: Normocephalic, normal hearing, moist mucosa CV: Pulses:Radial= 2+ and symmetric, capillary refill < 2 secs, no peripheral edema/varicosities Heart: Regular rate and rhythm Lungs: Clear to auscultation Skin: no rash, bruising or lesions. Good turgor. Psych: cooperative and appropriate, alert and oriented x 3, good mood and affect. Musculoskeletal: patient has tenderness palpation at the A1 kuldeep site of the right middle finger. Active catching and locking of the digit. Median, radial and ulnar nerves are all intact. Nontender at the other A1 kuldeep sites. ? IMAGING: deferred today ? ? Supporting Subjective Information Below: ? Past Medical History: PAST?MEDICAL?HISTORY PAST MEDICAL HISTORY Diagnosis Date - Acute gastritis without mention of hemorrhage ? - Benign neoplasm of colon ? - Diaphragmatic hernia without mention of obstruction or gangrene ? - Esophageal reflux ? ? GERD - Generalized osteoarthrosis, unspecified site ? ? osteoarthritis - Malignant neoplasm of breast (female), unspecified site 2008 ? Breast cancer, left - Obesity, unspecified ? - Osteoporosis, unspecified ? - Other and unspecified hyperlipidemia ? - Personal history of poliomyelitis ? ? POLIOMYELITIS PERSONAL HISTORY OF - Pulmonary embolism (HCC) ? - Unspecified essential hypertension ? ? Past Surgical History: PAST?SURGICAL?HISTORY PAST SURGICAL HISTORY Procedure Laterality Date - APPENDECTOMY ? ? - BX BREAST PERC VACUUM/ROTN ? ? left breast - DELIVERY ONLY ? ? ? , low cervical - COLONOS W/REM POLYP SNARE ? ? polpy in cecum - [facility] ? 05/18[facility] ? normal - EGD W/O [facility] SPECIMEN W/BX ? ? gastritis, hiatal hernia - MASTECTOMY, PARTIAL ? ? Lump ax - neg LN - Tcis/1aN0M0 - PAST SURGICAL HISTORY OF ? ? ? HEEL SPURS - RADIAL KERATOTOMY ? 1981 ? Bilateral - REMOVAL GALLBLADDER ? 12/01/2006 ? Cholecystectomy - TOTAL ABDOM HYSTERECTOMY ? 1992 ? Hysterectomy, CARYN BSO ? Family History: FAMILY?HISTORY FAMILY HISTORY Problem Relation Age of Onset - Coronary Artery Disease Mother ? - Stroke Mother ? - AF [OTHER] Mother ? - pulmonary embolus [OTHER] Father ? - pulmon embolism [OTHER] Father 42 - polio [OTHER] Sister ? - Stroke Brother ? ? Social History: SOCIAL?HISTORY Social History Marital status: Spouse name: Years of education: 12 Number of children: 1 ? Occupational History Occupation Employer Comment [employer]* ? Social History Main Topics Smoking status: Never Smoker ? Smokeless status: Never Used Alcohol use: No Drug use: No Sexual activity: No Comment: HYSTERECTOMY ? Medications: CURRENT?MEDICATIONS Current Outpatient Prescriptions: celecoxib (CELEBREX) 200 mg capsule Take 1 capsule by mouth once daily. simvastatin (ZOCOR) 10 mg tablet Take 1 tablet by mouth once daily. lisinopril-hydrochlorothiazide (PRINZIDE,ZESTORETIC) 10-12.5 mg per tablet Take 1 tablet by mouth once daily. esomeprazole (NEXIUM) 20 mg capsule Take 20 mg by mouth once daily. aspirin, enteric coated (ADULT LOW DOSE ASPIRIN) 81 mg EC tablet Take 2 tablets by mouth once daily. folic acid 800 mcg tablet Take 800 mcg by mouth once daily. Cholecalciferol, Vitamin D3, (VITAMIN D) 1,000 unit Tab Take 2 tablets by mouth once daily. [id number]-[id number]#182 (COSAMIN ASU) 375-200-100 mg ORAL Cap Take by mouth. taking 2 tablets once daily meclizine 25 mg ORAL Tab 1 tablet three times daily as needed. COMPOUNDED PRESCRIPTION CQ10 daily omega-3 fatty acids/vitamin e(FISH OIL 1,000 MG CAP) her dose is 1,200mg take one cap daily TY-C 500 MG CAP Take one(1) capsule daily. MULTIVITAMIN TAB Take one(1) tablet daily. ? No current facility-administered medications for this visit. Allergies: Penicillins; Vicodin [Hydrocodone-Acetaminophen]; Claritin [Loratadine] ? ? ROS: General (negative for fatigue, malaise, weight loss/gain) HEENT (negative for headache, earache, recent vision changes, sinus pain, sore throat) Respiratory (no recent shortness of breath, hemoptysis) CV (negative for chest tightness, palpitations) Musculoskeletal (see HPI) Psych (no depression, anxiety) ? ? REFERRING PHYSICIAN: Ms. Penelope Cedillo was referred to me for consultation by the following physician. This consultation note will be sent to the following physician by either mail or electronic medical record. ? Xander Gunn MD [address] [facility] [place] [address] ? This note was partially generated using Secure-NOK voice recognition system, and there may be some incorrect words, spellings, and punctuation that were not noted in checking the note before saving. ? ? Mike Padron MD ? NURSING PROG Observed: 01/28/2018 Status: COMPLETED Source: [place] 9:43 AM [facility] REPOSITORY HNO ID: [id number] Author: Kim (Rn) INA Boyle Service: (none) Author Type: Registered Nurse Type: Nursing Progress Note Filed: 01/28/2018 9:43 AM Note Text: {Select Nursing Progress Note Template:[id number] op teaching. PT ED Observed: 01/28/2018 Status: COMPLETED Source: [place] 9:42 AM [facility] REPOSITORY HNO ID: [id number] Author: Kim (Rn) INA Boyle Service: (none) Author Type: Registered Nurse Type: Patient Education Filed: 01/28/2018 9:43 AM Note Text: PRE OP LEARNING ASSESSMENT PROCEDURE/SURGERY: SURGERY: READINESS TO LEARN COGNITIVE ABILITY: Alert and oriented MOTIVATION TO LEARN: Eager Interested FAMILY SUPPORT: None - Unavailable/disinterested PATIENT LEARNS BEST BY: Individual Instruction Verbal Instruction FACTORS AFFECTING LEARNING: None PHYSICAL LIMITATIONS AFFECTING LEARNING: None Electronically Signed By: Kim Boyle RN In Department: [facility] SURGERY PROGRESS Observed: 01/17/2018 Status: COMPLETED Source: [place] 12:[address] [facility] REPOSITORY HNO ID: [id number] Author: Mike Padron Service: (none) Author Type: Physician Type: Progress Notes Filed: 01/17/2018 12:56 PM Note Text: Mike Padron MD Department of Orthopaedics Orthopaedics [address] [facility] [address] Dept: [phone] Dept January 17, 2018 CHIEF COMPLAINT: New Patient (Right middle trigger finger REF: [place] ) HPI: Ms. Penelope Cedillo is a 67 year old female who had previously been seen many years ago for some trigger finger problems. She states now the right, middle is giving her quite a bit of pain and is locking very frequently now. 2 out of 10 baseline discomfort, more when he gets locked. He previously had some injections which worked on the other hand. ASSESSMENT: M65.331 Trigger middle finger of right hand (primary encounter diagnosis) PLAN: we discussed both nonoperative and operative care again. The risks, benefits, alternatives and potential Medications were reviewed and she would like to pursue surgery. FOLLOW UP INSTRUCTIONS: We'll schedule under local anesthetic. OBJECTIVE: Ms. Penelope Cdeillo is a pleasant 67 year old in no apparent distress. Gen:BP 156/84 Pulse 70 Ht 5' 8.5 (1.74m) Wt 242 lb (109.8kg) BMI 36.26 kg/(m2). nl development, obese, no deformities ENT: Normocephalic, normal hearing, moist mucosa CV: Pulses:Radial= 2+ and symmetric, capillary refill < 2 secs, no peripheral edema/varicosities Heart: Regular rate and rhythm Lungs: Clear to auscultation Skin: no rash, bruising or lesions. Good turgor. Psych: cooperative and appropriate, alert and oriented x 3, good mood and affect. Musculoskeletal: patient has tenderness palpation at the A1 kuldeep site of the right middle finger. Active catching and locking of the digit. Median, radial and ulnar nerves are all intact. Nontender at the other A1 kuldeep sites. IMAGING: deferred today Supporting Subjective Information Below: Past Medical History: PAST MEDICAL HISTORY Diagnosis Date - Acute gastritis without mention of hemorrhage - Benign neoplasm of colon - Diaphragmatic hernia without mention of obstruction or gangrene - Esophageal reflux GERD - Generalized osteoarthrosis, unspecified site osteoarthritis - Malignant neoplasm of breast (female), unspecified site 2009 Breast cancer, left - Obesity, unspecified - Osteoporosis, unspecified - Other and unspecified hyperlipidemia - Personal history of poliomyelitis POLIOMYELITIS PERSONAL HISTORY OF - Pulmonary embolism (HCC) - Unspecified essential hypertension Past Surgical History: PAST SURGICAL HISTORY Procedure Laterality Date - APPENDECTOMY - BX BREAST PERC VACUUM/ROTN left breast - DELIVERY ONLY , low cervical - COLONOS W/REM POLYP SNARE polpy in cecum - COLONOSCOP W/ OR W/O [facility] SPEC 05/18/14 normal - EGD W/O [facility] SPECIMEN W/BX gastritis, hiatal hernia - MASTECTOMY, PARTIAL Lump ax - neg LN - Tcis/1aN0M0 - PAST SURGICAL HISTORY OF HEEL SPURS - RADIAL KERATOTOMY 1981 Bilateral - REMOVAL GALLBLADDER 12/01/2006 Cholecystectomy - TOTAL ABDOM HYSTERECTOMY 1993 Hysterectomy, CARYN BSO Family History: FAMILY HISTORY Problem Relation Age of Onset - Coronary Artery Disease Mother - Stroke Mother - AF [OTHER] Mother - pulmonary embolus [OTHER] Father - pulmon embolism [OTHER] Father 42 - polio [OTHER] Sister - Stroke Brother Social History:Social History Marital status: Spouse name: Years of education: 12 Number of children: 1 Occupational History Occupation Employer Comment [employer]* Social History Main Topics Smoking status: Never Smoker Smokeless status: Never Used Alcohol use: No Drug use: No Sexual activity: No Comment: HYSTERECTOMY Medications: Current Outpatient Prescriptions: celecoxib (CELEBREX) 200 mg capsule Take 1 capsule by mouth once daily. simvastatin (ZOCOR) 10 mg tablet Take 1 tablet by mouth once daily. lisinopril-hydrochlorothiazide (PRINZIDE,ZESTORETIC) 10-12.5 mg per tablet Take 1 tablet by mouth once daily. esomeprazole (NEXIUM) 20 mg capsule Take 20 mg by mouth once daily. aspirin, enteric coated (ADULT LOW DOSE ASPIRIN) 81 mg EC tablet Take 2 tablets by mouth once daily. folic acid 800 mcg tablet Take 800 mcg by mouth once daily. Cholecalciferol, Vitamin D3, (VITAMIN D) 1,000 unit Tab Take 2 tablets by mouth once daily. [id number]-[id number]#182 (COSAMIN ASU) 375-200-100 mg ORAL Cap Take by mouth. taking 2 tablets once daily meclizine 25 mg ORAL Tab 1 tablet three times daily as needed. COMPOUNDED PRESCRIPTION CQ10 daily omega-3 fatty acids/vitamin e(FISH OIL 1,000 MG CAP) her dose is 1,200mg take one cap daily TY-C 500 MG CAP Take one(1) capsule daily. MULTIVITAMIN TAB Take one(1) tablet daily. No current facility-administered medications for this visit. Allergies: Penicillins; Vicodin [Hydrocodone-Acetaminophen]; Claritin [Loratadine] ROS: General (negative for fatigue, malaise, weight loss/gain) HEENT (negative for headache, earache, recent vision changes, sinus pain, sore throat) Respiratory (no recent shortness of breath, hemoptysis) CV (negative for chest tightness, palpitations) Musculoskeletal (see HPI) Psych (no depression, anxiety) REFERRING PHYSICIAN: Ms. Penelope Cedillo was referred to me for consultation by the following physician. This consultation note will be sent to the following physician by either mail or electronic medical record. Xander Gunn MD [address] [facility] [place] [address] This note was partially generated using Secure-NOK voice recognition system, and there may be some incorrect words, spellings, and punctuation that were not noted in checking the note before saving. Mike Padron MD CNOV Observed: 01/17/2018 Status: COMPLETED Source: [place] 10:40 AM [facility] REPOSITORY Office Visit (ORTHWS) PENELOPE CEDILLO ([id number]) 1950 F Date Time Provider Department 01/17/18 10:40 AM MIKE PADRON During your visit today, we recorded the following information about you: Pulse Blood pressure Weight Height 70/minute 156/84 109.8 kg 1.74 m Steff Samson Ma 01/17/2018 12:56 PM Signed AMB ROOMING INTAKE FLOWSHEET DATA Risk Screening Do you have concerns about personal safety or safety in the home?: No Pain Pain Score: 2/10 Pain Location: Hand-Right Description: Other: See comment (locking) Duration Amount of Time: 1 Duration Units: Years Frequency: Intermittent Intervention: Other: See comment (none) Patient here today for evaluation of right middle trigger finger x 1 year. States this finger has been injected before. Middle finger locks down and she has to manually open the finger with the other hand. 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 Mike Padron MD 01/17/2018 12:56 PM Signed Mike Padron MD Department of Orthopaedics Orthopaedics [address] [facility] [place] [address] Dept: [phone] Dept January 17, 2018 CHIEF COMPLAINT: New Patient (Right middle trigger finger REF: [place] ) HPI: Ms. Penelope Cedillo is a 67 year old female who had previously been seen many years ago for some trigger finger problems. She states now the right, middle is giving her quite a bit of pain and is locking very frequently now. 2 out of 10 baseline discomfort, more when he gets locked. He previously had some injections which worked on the other hand. ASSESSMENT: M65.331 Trigger middle finger of right hand (primary encounter diagnosis) PLAN: we discussed both nonoperative and operative care again. The risks, benefits, alternatives and potential Medications were reviewed and she would like to pursue surgery. FOLLOW UP INSTRUCTIONS: We'll schedule under local anesthetic. OBJECTIVE: Ms. Penelope Cedillo is a pleasant 67 year old in no apparent distress. Gen:BP 156/84 Pulse 70 Ht 5' 8.5ANDquot; (1.74m) Wt 242 lb (109.8kg) BMI 36.26 kg/(m2). nl development, obese, no deformities ENT: Normocephalic, normal hearing, moist mucosa CV: Pulses:Radial= 2+ and symmetric, capillary refill ANDlt; 2 secs, no peripheral edema/varicosities Heart: Regular rate and rhythm Lungs: Clear to auscultation Skin: no rash, bruising or lesions. Good turgor. Psych: cooperative and appropriate, alert and oriented x 3, good mood and affect. Musculoskeletal: patient has tenderness palpation at the A1 kuldeep site of the right middle finger. Active catching and locking of the digit. Median, radial and ulnar nerves are all intact. Nontender at the other A1 kuldeep sites. IMAGING: deferred today Supporting Subjective Information Below: Past Medical History: PAST MEDICAL HISTORY Diagnosis Date - Acute gastritis without mention of hemorrhage - Benign neoplasm of colon - Diaphragmatic hernia without mention of obstruction or gangrene - Esophageal reflux GERD - Generalized osteoarthrosis, unspecified site osteoarthritis - Malignant neoplasm of breast (female), unspecified site 2009 Breast cancer, left - Obesity, unspecified - Osteoporosis, unspecified - Other and unspecified hyperlipidemia - Personal history of poliomyelitis POLIOMYELITIS PERSONAL HISTORY OF - Pulmonary embolism (HCC) - Unspecified essential hypertension Past Surgical History: PAST SURGICAL HISTORY Procedure Laterality Date - APPENDECTOMY - BX BREAST PERC VACUUM/ROTN left breast - DELIVERY ONLY , low cervical - COLONOS W/REM POLYP SNARE polpy in cecum - COLONOSCOP W/ OR W/O [facility] SPEC 05/18/14 normal - EGD W/O [facility] SPECIMEN W/BX gastritis, hiatal hernia - MASTECTOMY, PARTIAL Lump ax - neg LN - Tcis/1aN0M0 - PAST SURGICAL HISTORY OF HEEL SPURS - RADIAL KERATOTOMY 1981 Bilateral - REMOVAL GALLBLADDER 12/01/2006 Cholecystectomy - TOTAL ABDOM HYSTERECTOMY 1992 Hysterectomy, CARYN BSO Family History: FAMILY HISTORY Problem Relation Age of Onset - Coronary Artery Disease Mother - Stroke Mother - AF [OTHER] Mother - pulmonary embolus [OTHER] Father - pulmon embolism [OTHER] Father 42 - polio [OTHER] Sister - Stroke Brother Social History:Social History Marital status: Spouse name: Years of education: 12 Number of children: 1 Occupational History Occupation Employer Comment [employer]* Social History Main Topics Smoking status: Never Smoker Smokeless status: Never Used Alcohol use: No Drug use: No Sexual activity: No Comment: HYSTERECTOMY Medications: Current Outpatient Prescriptions: celecoxib (CELEBREX) 200 mg capsule Take 1 capsule by mouth once daily. simvastatin (ZOCOR) 10 mg tablet Take 1 tablet by mouth once daily. lisinopril-hydrochlorothiazide (PRINZIDE,ZESTORETIC) 10-12.5 mg per tablet Take 1 tablet by mouth once daily. esomeprazole (NEXIUM) 20 mg capsule Take 20 mg by mouth once daily. aspirin, enteric coated (ADULT LOW DOSE ASPIRIN) 81 mg EC tablet Take 2 tablets by mouth once daily. folic acid 800 mcg tablet Take 800 mcg by mouth once daily. Cholecalciferol, Vitamin D3, (VITAMIN D) 1,000 unit Tab Take 2 tablets by mouth once daily. [id number]-kuvrnodpgd-jxw#182 (COSAMIN ASU) 375-200-100 mg ORAL Cap Take by mouth. taking 2 tablets once daily meclizine 25 mg ORAL Tab 1 tablet three times daily as needed. COMPOUNDED PRESCRIPTION CQ10 daily omega-3 fatty acids/vitamin e(FISH OIL 1,000 MG CAP) her dose is 1,200mg take one cap daily TY-C 500 MG CAP Take one(1) capsule daily. MULTIVITAMIN TAB Take one(1) tablet daily. No current facility-administered medications for this visit. Allergies: Penicillins; Vicodin [Hydrocodone-Acetaminophen]; Claritin [Loratadine] ROS: General (negative for fatigue, malaise, weight loss/gain) HEENT (negative for headache, earache, recent vision changes, sinus pain, sore throat) Respiratory (no recent shortness of breath, hemoptysis) CV (negative for chest tightness, palpitations) Musculoskeletal (see HPI) Psych (no depression, anxiety) REFERRING PHYSICIAN: Ms. Penelope Cedillo was referred to me for consultation by the following physician. This consultation note will be sent to the following physician by either mail or electronic medical record. Xander Gunn MD [address] [facility] [place] [address] This note was partially generated using Secure-NOK voice recognition system, and there may be some incorrect words, spellings, and punctuation that were not noted in checking the note before saving. Mike Padron MD Referring Provider: XANDER GUNN [[id number]] Allergies As of Date: 01/17/2018 Noted Allergy Reaction PENICILLINS 09/01/2005 10 - Anaphylaxis VICODIN (HYDROCODONE-ACETAMINOPHE*01/31/2009 11 - Vomiting CLARITIN (LORATADINE) 11/16/2005 4 - Hives Date Reviewed: 01/17/2018 Reviewed by: Steff Samson Ma - Fully Assessed Reason for Visit: New Patient [172] Cmt: Right middle trigger finger REF: Luis A Primary Visit Diagnosis:Trigger middle finger of right hand [M65.331] Prescriptions as of 01/17/2018 Sig: CELECOXIB 200 MG CAPSULE Take 1 capsule by mouth once * SIMVASTATIN 10 MG TABLET Take 1 tablet by mouth once d* LISINOPRIL 10 MG-HYDROCHLOROT* Take 1 tablet by mouth once d* ESOMEPRAZOLE MAGNESIUM 20 MG * Take 20 mg by mouth once micheal* ASPIRIN 81 MG TABLET,DELAYED * Take 2 tablets by mouth once * FOLIC ACID 800 MCG TABLET Take 800 mcg by mouth once da* * CHOLECALCIFEROL (VITAMIN D3) * Take 2 tablets by mouth once * * GLUCOSAMINE 375 MG-CHONDROITI* Take by mouth. taking 2 tabl* * MECLIZINE 25 MG TABLET 1 tablet three times daily as* * COMPOUNDED PRESCRIPTION CQ10 daily * FISH OIL 1,000 MG CAPSULE her dose is 1,200mg take one * * TY-C 500 MG CAPSULE Take one(1) capsule daily. * MULTIVITAMIN TABLET Take one(1) tablet daily. Problem List As Of Date 01/17/2018 Noted Resolved OVERWEIGHT [E66.9] Essential hypertension [I10] ESOPHAGEAL REFLUX [K21.9] More... GENERAL OSTEOARTHROSIS [M15.9] More... 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 [Z79.*INVALID FOR*05/25/2017 ER+ (estrogen receptor positive status) [Z17.0] INVALID FOR* Pulmonary embolism (HCC) [I26.99] INVALID FOR* Postmenopausal status (age-related) (natural) [*INVALID FOR* DJD (degenerative joint disease) [M19.90] INVALID FOR* Right leg pain [M79.604] INVALID FOR*05/25/2017 Trigger middle finger of right hand [M65.331] INVALID FOR* Trigger middle finger of left hand [M65.332] INVALID FOR* Trigger thumb of right hand [M65.311] INVALID FOR* Trigger thumb of left hand [M65.312] INVALID FOR* Osteopenia [M85.80] INVALID FOR*02/19/2014 Osteopenia [M85.80] INVALID FOR* Capsulitis [M77.9] INVALID FOR*05/25/2017 Tendonitis [M77.9] INVALID FOR*05/25/2017 Capsulitis of ankle [M77.50] INVALID FOR* Osteoarthritis [M19.90] INVALID FOR* Personal history of colonic polyps [Z86.010] INVALID FOR* Ocular migraine [G43.109] INVALID FOR* Gastroesophageal reflux disease without esophag*INVALID FOR* History of lacunar cerebrovascular accident (CV*INVALID FOR* Ischemic cerebrovascular accident (CVA) of fron*INVALID FOR* More... Carotid stenosis, bilateral [I65.23] INVALID FOR* Arachnoid cyst [G93.0] INVALID FOR* Malignant neoplasm of lower-inner quadrant of l*INVALID FOR* Encounter Status:Closed by MIKE PADRON MD on 01/17/18 PROGRESS Observed: 01/17/2018 Status: COMPLETED Source: [place] 10:[address] [facility] [place] REPOSITORY HNO ID: [id number] Author: Steff Samson Ma Service: (none) Author Type: (none) Type: Progress Notes Filed: 01/17/2018 12:56 PM Note Text: AMB ROOMING INTAKE FLOWSHEET DATA Risk Screening Do you have concerns about personal safety or safety in the home?: No Pain Pain Score: 2/10 Pain Location: Hand-Right Description: Other: See comment (locking) Duration Amount of Time: 1 Duration Units: Years Frequency: Intermittent Intervention: Other: See comment (none) Patient here today for evaluation of right middle trigger finger x 1 year. States this finger has been injected before. Middle finger locks down and she has to manually open the finger with the other hand. 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 HOSP Observed: 01/17/2018 Status: COMPLETED Source: [place] 12:00 AM [facility] REPOSITORY Patient:Penelope Cedillo MRN: <[id number]> Height:5' 8.5(1.74 m) Weight:240 lb (108.863 kg) Outpatient Medications as of 01/28/18: celecoxib (CELEBREX) 200 mg capsule simvastatin (ZOCOR) 10 mg tablet lisinopril-hydrochlorothiazide (PRINZIDE,ZESTORETIC) 10-12.5 mg per tablet esomeprazole (NEXIUM) 20 mg capsule aspirin, enteric coated (ADULT LOW DOSE ASPIRIN) 81 mg EC tablet folic acid 800 mcg tablet Cholecalciferol, Vitamin D3, (VITAMIN D) 1,000 unit Tab [id number]-pekpzwqxxb-ooc#182 (COSAMIN ASU) 375-200-100 mg ORAL Cap meclizine 25 mg ORAL Tab COMPOUNDED PRESCRIPTION omega-3 fatty acids/vitamin e(FISH OIL 1,000 MG CAP) TY-C 500 MG CAP MULTIVITAMIN TAB Admission/Clinic Administered Medications as of 01/28/18: lidocaine-EPINEPHrine 2 %-1:100,000 10 mL injection Problem List: OVERWEIGHT [E66.9] Essential hypertension [I10] Esophageal reflux [K21.9] Generalized osteoarthrosis, unspecified site [M15.9] Other and unspecified hyperlipidemia [E78.5] Calculus of gallbladder without mention of cholecystitis or obstruction [K80.20] Abnormal mammogram, unspecified [R92.8] Malignant neoplasm of lower-inner quadrant of female breast (HCC) [C50.319] Acute gastritis without mention of hemorrhage [K29.00] Diaphragmatic hernia without mention of obstruction or gangrene [K44.9] Benign neoplasm of colon [D12.6] ER+ (estrogen receptor positive status) [Z17.0] Pulmonary embolism (HCC) [I26.99] Postmenopausal status (age-related) (natural) [Z78.0] DJD (degenerative joint disease) [M19.90] Trigger middle finger of right hand [M65.331] Trigger middle finger of left hand [M65.332] Trigger thumb of right hand [M65.311] Trigger thumb of left hand [M65.312] Osteopenia [M85.80] Capsulitis of ankle [M77.50] Osteoarthritis [M19.90] Personal history of colonic polyps [Z86.010] Ocular migraine [G43.109] Gastroesophageal reflux disease without esophagitis [K21.9] History of lacunar cerebrovascular accident (CVA) [Z86.73] Ischemic cerebrovascular accident (CVA) of frontal lobe (HCC) [I63.9] Carotid stenosis, bilateral [I65.23] Arachnoid cyst [G93.0] Malignant neoplasm of lower-inner quadrant of left breast in female, estrogen receptor positive (HCC) [C50.312, Z17.0] Allergies: Penicillins Vicodin [Hydrocodone-Acetaminophen] Claritin [Loratadine] Date Verified: 01/28/18 Lab Values No results within the last 30 days for the following basenames: K,HCT Progress Notes ([facility]): JHON Mullen 01/20/2018 3:55 PM Signed Patient calling in saying that she needs to r/s post-op appointments on 02/07 and 03/10 due to her having other obligations. Please assist patient in r/s these appointments: [phone] - best time to reach her is in the morning. Thanks! Steff Chas Chapin Ma 01/21/2018 8:41 AM Signed Called and spoke with patient. Appointment times have been changed to meet patients request. Progress Notes ([facility]): Luna Kong RN, RN 01/17/2018 11:43 AM Signed Patient will be scheduled on January 28, 2018 at [place] for local procedure. Patient is having right middle finger trigger release. INA Wynn RN, RN 01/17/2018 11:43 AM Signed Surgical request completed. Left message on cell phone to have patient call office back- need to find out when and where patient would like postops. Called home phone, did not leave message. INA Wynn Ma 01/17/2018 1:24 PM Signed Patient returned call and would like post op visits in [place]. Luna Kong RN, RN 01/17/2018 3:16 PM Signed Letter of confirmation and postops mailed. INA Wynn [facility] 01/18/2018 9:01 AM Signed Noted in [place]. PROGRESS Observed: 01/06/2018 Status: COMPLETED Source: [place] 11:37 AM [facility] REPOSITORY HNO ID: [id number] Author: Hamida Saleh Rt Service: (none) Author Type: (none) Type: Progress Notes Filed: 01/06/2018 11:37 AM Note Text: Radiology Service Progress Note PATIENT NAME: Penelope Cedillo DATE OF SERVICE: January 06, 2018 TIME: 11:37 AM PATIENT IDENTITY VERIFICATION COMPLETED USING TWO (2) METHODS: Patient confirmed name verbally and Date of . PATIENT GENDER DATA: female PATIENT RELEVANT IMPLANT DATA REVIEWED: Yes CONTRAST INDUCED NEPHROPATHY RISK FACTORS: Patient age > 60 years CREATININE: Creatinine Date Value Ref Range Status 12/23/2017 0.81 0.58 - 0.96 mg/dL Final 05/20/2017 0.73 0.58 - 0.96 mg/dL Final 05/21/2016 0.83 0.70 - 1.40 mg/dL Final eGFR-All Other Races Date Value Ref Range Status 12/23/2017 >60 . Final Comment: eGFR (Estimated GFR) Units of measure: mL/min/1.73 meters squared eGFR is derived from the reexpressed MDRD Study equation using the following parameters: serum creatinine, age, gender and race. The creatinine assay has been calibrated to be traceable to IDMS. An eGFR <60 mL/min/1.73m2 for >3 months is consistent with chronic kidney disease. Refer to KDOQI guidelines for clinical interpretation. In patients with unstable renal function, e.g. those with acute kidney injury, the eGFR may not accurately reflect actual GFR. eGFR- Date Value Ref Range Status 12/23/2017 >60 Final P.O.C.T. RESULTS: POC done: Yes, See Lab Tab January 06, 2018 RADIOLOGIST NOTIFIED?: No ALLERGIES: Reviewed and unchanged CONTRAST ALLERGY: NO. PERIPHERAL IV ACCESS: Ambulatory: IV type: A peripheral IV was started in the Right antecubital site with a Angio cath: 22 gauge., Site assessment: Clean,Dry and Intact, Site disposition Discontinued RADIOLOGY DEPARTMENT: MR; Exam(s) Completed: Head: Routine Brain SIGNED BY: Hamida Landin January 06, 2018 11:37 AM MRI BRAIN WO/W Observed: 01/06/2018 Status: F Source: [place] IVCON 10:50 AM [facility] REPOSITORY * * *Final Report* * * DATE OF EXAM: Jan 06 2018 10:50AM [facility] 0295 - MRI BRAIN WO/W IVCON / PROCEDURE REASON: Cerebral cysts * * * * Physician Interpretation * * * * COMPARISONS: 05/27/2016. HISTORY: Cerebral cyst. History of breast cancer. TECHNIQUE: MRI brain without and with contrast. MR Contrast: Dotarem Contrast Dose: 20 cc Route of Administration: Intravenous RESULT: MRI BRAIN: Stable CSF intensity cystic focus at right posterior fossa with bone scalloping and indentation on brain without enhancement with displacement of vessels measuring 23 mm compatible with arachnoid cyst. No distortion of fourth ventricular obstruction to CSF. No abnormal enhancement in this does not warrant any further workup. On contrast no abnormal enhancement in brain or meninges. Age-expected stable sulci, gyri, ventricles, CSF spaces and brain with senescent volume loss, microvascular ischemia and mild accentuation of CSF spaces. No acute hemorrhage/infarct, mass effect or collections. Normal bones and soft tissues. Patent flow voids. IMPRESSION: 1. Stable right posterior fossa arachnoid cyst. 2. Stable senescent changes. 3. Unchanged brain without acute intracranial abnormality. Blow Molding Machine Tender: PSCSeth Transcribe Date/Time: Jan 06 2018 11:21A Dictated by : DINA CHAVEZ MD This examination was interpreted and the report reviewed and electronically signed by: DINA CHAVEZ MD on Jan 06 2018 11:24AM EST [id number] BD VFA WITH DXA - Observed: 01/03/2018 Status: F Source: [place] AXIAL SKELETON 11:14 AM [facility] REPOSITORY * * *Final Report* * * DATE OF EXAM: Jan 03 2018 11:14AM [facility] [id number] - BD VFA WITH DXA - AXIAL SKELETON B / PROCEDURE REASON: Age-related osteoporosis without current pathological fracture * * * * Physician Interpretation * * * * PROCEDURE: BD VFA WITH DXA - AXIAL SKELETON INDICATION: Age-related osteoporosis without current pathological fracture TECHNIQUE: Low dose AP spine and hip images and low dose lateral thoracolumbar spine image COMPARISON: 08/10/2013 LUMBAR SPINE: The bone mineral density from L1 through L4 is 0.982 grams per square centimeter which yields a T-score of -0.6. This is 5.9% worse. LEFT HIP: The bone mineral density of the total region of the hip is 0.788 grams per square centimeter which yields a T-score of -1.3. . LEFT FEMORAL NECK: The bone mineral density of the femoral neck is 0.652 grams per square centimeter which yields a T-score of -1.8. This is not significantly changed. RIGHT HIP: The bone mineral density of the total region of the hip is 0.874 grams per square centimeter which yields a T-score of -0.6. . RIGHT FEMORAL NECK: The bone mineral density of the femoral neck is 0.687 grams per square centimeter which yields a T-score of -1.5. . Lateral thoracolumbar spine image shows normal alignment without compression fracture. 10-year Fracture Risk (FRAX): Major osteoporotic fracture risk 15% Hip fracture risk 2.1% IMPRESSION: Osteopenia in both hips. No compression fracture. [facility]LD [facility] ORG. CLASSIFICATION OF BONE MASS CLASSIFICATION T-SCORE Normal Greater than -1 Low Bone Mass Between -1 and -2.5 (Osteopenia) Osteoporosis Less than or equal to -2.5 Blow Molding Machine Tender: ZOE Transcribe Date/Time: Jan 03 2018 9:29P Dictated by : THADDEUS JACINTO MD This examination was interpreted and the report reviewed and electronically signed by: THADDEUS JACINTO MD on Jan 03 2018 9:31PM EST [id number] PROGRESS Observed: 01/03/2018 Status: COMPLETED Source: [place] 10:[address] [facility] REPOSITORY HNO ID: [id number] Author: Joyce Antunez Rt Service: (none) Author Type: (none) Type: Progress Notes Filed: 01/03/2018 11:14 AM Note Text: Penelope Cedillo January 03, 2018 [id number] Double identification: Patient identified by name and Bone Density Completed. Joyce Antunez Rt PATIENT TOLD OF RADIATION JK 11:00AM NOT CREATININE Collected: 12/23/2017 Status: F Source: [place] 11:[address] [facility] [place] REPOSITORY TYPE CODE TESTS RESULT OUT OF REFERENCE UNITS RANGE LAB CRET 0.58-0.96 mg/dL Creatinine 0.81 LAB GFRAA eGFR- >60 Amer. LAB GFRNAA . eGFR-All Other Races >60 Result Comment: eGFR (Estimated GFR) Units of measure: mL/min/1.73 meters squared eGFR is derived from the reexpressed MDRD Study equation using the following parameters: serum creatinine, age, gender and race. The creatinine assay has been calibrated to be traceable to IDMS. An eGFR <60 mL/min/1.73m2 for >3 months is consistent with chronic kidney disease. Refer to KDOQI guidelines for clinical interpretation. In patients with unstable renal function, e.g. those with acute kidney injury, the eGFR may not accurately reflect actual GFR. Performed By: #### CRET1 #### [facility] [address] [place], [place] [address] XR LUMBAR 3V Observed: 12/23/2017 Status: F Source: [place] AP/LAT/L5-S1 11:19 AM [facility] REPOSITORY * * *Final Report* * * DATE OF EXAM: Dec 23 2017 11:19AM [facility] [id number] - XR LUMBAR 3V AP/LAT/L5-S1 / PROCEDURE REASON: multiple diagnoses * * * * Physician Interpretation * * * * EXAM: LUMBAR SPINE, 3 VIEWS CLINICAL: 67-year-old female with low back pain TECHNIQUE: AP, lateral coned down lateral COMPARISON: None RESULTS: Counting reference: The iliac crest level is considered L4.L5 or the first vertebrae proximal to the sacrum is considered L5. Minimal curve to the right centered at L2 without rotary component. Disc spaces are maintained. Vertebral bodies and pedicles are intact. Small osteophytes anteriorly at all 2 through L4. Facet degenerative changes in lower lumbar spine. IMPRESSION: FACET DEGENERATIVE CHANGES IN THE LOWER LUMBAR SPINE. Blow Molding Machine Tender: ZOE Transcribe Date/Time: Dec 23 2017 12:13P Dictated by : ZULEIKA CARRILLO MD This examination was interpreted and the report reviewed and electronically signed by: ZULEIKA CARRILLO MD on Dec 23 2017 12:15PM EST [id number] PROGRESS Observed: 12/23/2017 Status: COMPLETED Source: [place] 11:07 AM [facility] REPOSITORY HNO ID: [id number] Author: Joyce Landin Service: (none) Author Type: (none) Type: Progress Notes Filed: 12/23/2017 11:19 AM Note Text: Radiology Service Progress Note PATIENT NAME: Penelope Cedillo DATE OF SERVICE: December 23, 2017 TIME: 11:07 AM PATIENT IDENTITY VERIFICATION COMPLETED USING TWO (2) METHODS: Patient confirmed name verbally and Date of . PATIENT GENDER DATA: Female. status: : No status: NO. PATIENT RELEVANT IMPLANT DATA REVIEWED: Not Applicable RADIOLOGY DEPARTMENT: General X-ray: Exam(s) Completed: Spine X-Ray(s): Lumbar AP / LAT / L5-S1 PERIPHERAL IV DATA: Not applicable SIGNED BY: Joyce Landin December 23, 2017 11:07 AM PROGRESS Observed: 12/23/2017 Status: COMPLETED Source: [place] 10:17 AM [facility] REPOSITORY HNO ID: [id number] Author: Xander Gunn Service: (none) Author Type: Physician Type: Progress Notes Filed: 12/23/2017 10:35 AM Note Text: Patient presents with: 6 Month Exam HPI: Patient presents today for office visit for follow up. HYPERTENSION:no new chest pain or shortness of breath. No edema. HLD:labs are stable. GERD:still getting gerd occasionally. No dysphagia. No black or bloody stools. ONC:up to date on mammogram. NEURO: suggested MRI at last visit. Osteoporosis: PVD: did carotid in last year. Having trigger fingers in right middle finger. No injury. No real pain or swelling. Gets pain when leans certain ways. When she stands up it crunches and goes back in place. No radiation of pain. No numbness or weakness. Has eczema on outside of the ear. Uses cream prn. MEDICATIONS: Current Outpatient Prescriptions: celecoxib (CELEBREX) 200 mg capsule Take 1 capsule by mouth once daily. simvastatin (ZOCOR) 10 mg tablet Take 1 tablet by mouth once daily. lisinopril-hydrochlorothiazide (PRINZIDE,ZESTORETIC) 10-12.5 mg per tablet Take 1 tablet by mouth once daily. esomeprazole (NEXIUM) 20 mg capsule Take 20 mg by mouth once daily. aspirin, enteric coated (ADULT LOW DOSE ASPIRIN) 81 mg EC tablet Take 2 tablets by mouth once daily. folic acid 800 mcg tablet Take 800 mcg by mouth once daily. Cholecalciferol, Vitamin D3, (VITAMIN D) 1,000 unit Tab Take 2 tablets by mouth once daily. bygobentqig-eqifpzolhy-vzg#182 (COSAMIN ASU) 375-200-100 mg ORAL Cap Take by mouth. taking 2 tablets once daily meclizine 25 mg ORAL Tab 1 tablet three times daily as needed. COMPOUNDED PRESCRIPTION CQ10 daily omega-3 fatty acids/vitamin e(FISH OIL 1,000 MG CAP) her dose is 1,200mg take one cap daily TY-C 500 MG CAP Take one(1) capsule daily. MULTIVITAMIN TAB Take one(1) tablet daily. No current facility-administered medications for this visit. ALLERGIES: ALLERGIES Allergen Reactions - Penicillins Anaphylaxis - Vicodin [Hydrocodon* Vomiting - Claritin [Loratadin* Hives PAST MEDICAL HISTORY Diagnosis Date - Acute gastritis without mention of hemorrhage - Benign neoplasm of colon - Diaphragmatic hernia without mention of obstruction or gangrene - Esophageal reflux GERD - Generalized osteoarthrosis, unspecified site osteoarthritis - Malignant neoplasm of breast (female), unspecified site 2008 Breast cancer, left - Obesity, unspecified - Osteoporosis, unspecified - Other and unspecified hyperlipidemia - Personal history of poliomyelitis POLIOMYELITIS PERSONAL HISTORY OF - Pulmonary embolism (HCC) - Unspecified essential hypertension PAST SURGICAL HISTORY Procedure Laterality Date - APPENDECTOMY - BX BREAST PERC VACUUM/ROTN left breast - DELIVERY ONLY , low cervical - COLONOS W/REM POLYP SNARE polpy in cecum - COLONOSCOP W/ OR W/O [facility] SPEC 05/18/14 normal - EGD W/O [facility] SPECIMEN W/BX gastritis, hiatal hernia - MASTECTOMY, PARTIAL Lump ax - neg LN - Tcis/1aN0M0 - PAST SURGICAL HISTORY OF HEEL SPURS - RADIAL KERATOTOMY 1981 Bilateral - REMOVAL GALLBLADDER 12/01/2006 Cholecystectomy - TOTAL ABDOM HYSTERECTOMY 1992 Hysterectomy, CARYN BSO FAMILY HISTORY Problem Relation Age of Onset - Coronary Artery Disease Mother - Stroke Mother - AF [OTHER] Mother - pulmonary embolus [OTHER] Father - pulmon embolism [OTHER] Father 42 - polio [OTHER] Sister - Stroke Brother Social History Marital status: Spouse name: Years of education: 12 Number of children: 1 Occupational History Occupation Employer Comment [employer]* Social History Main Topics Smoking status: Never Smoker Smokeless status: Never Used Alcohol use: No Drug use: No Sexual activity: No Comment: HYSTERECTOMY Reviewed current medications, allergies, past medical history, surgical history, family history and social history today. REVIEW OF SYSTEMS All other reviewed and negative other than HPI. HEALTH MAINTENANCE: Reviewed health maintenance issues today and recommended the following in detail. There are no preventive care reminders to display for this patient. VITALS: BP 134/88 Pulse 80 Resp 16 Last 4 Encounter Wt Readings: Date: Wt: 08/31/2017 109.5 kg (241 lb 8 oz) 05/25/2017 110 kg (242 lb 9.6 oz) 09/28/2016 108.4 kg (239 lb) 08/18/2016 108.4 kg (239 lb) PHYSICAL EXAMINATION: General appearance: Well appearing, alert, in no acute distress, well-hydrated, well nourished. Skin: Skin color, texture, turgor normal, no suspicious rashes or lesions Head: Normocephalic, no masses, lesions, tenderness or abnormalities Neck: Supple, no adenopathy; thyroid symmetric, normal size, no bruits Lungs: Lungs clear to auscultation. No wheezing, rhonchi, rales Heart: RRR without murmur, gallop, or rubs. No ectopy Abdomen: Normal abdominal exam, Abdomen soft, non-tender. Bowel sounds normal. No masses, organomegaly Extremities: No deformities, edema, skin discoloration, clubbing or cyanosis. Good capillary refill. Back: tender over right SI joint. Neg slr. Neuro negative. ASSESSMENT/PLAN: 1. Essential hypertension - ICD9: 401.9, ICD10: I10 (primary diagnosis) - good control - Continue current medication(s) - Encouraged dietary sodium restriction/DASH diet - Recommended regular aerobic exercise. - Goal of BP <140/90 2. Malignant neoplasm of lower-inner quadrant of left breast in female, estrogen receptor positive (HCC) - ICD9: 174.3, V86.0, ICD10: C50.312, Z17.0 - maintain mammogram. Call if any issues. 3. Gastroesophageal reflux disease without esophagitis - ICD9: 530.81, ICD10: K21.9 - depends on diet. Discussed. Can consider gi if continues. 4. Ischemic cerebrovascular accident (CVA) of frontal lobe (HCC) - ICD9: 434.91, ICD10: I63.9 - stable. 5. Trigger middle finger of right hand - ICD9: 727.03, ICD10: M65.331 - CONSULT TO ORTHOPAEDICS 6. Arachnoid cyst - ICD9: 348.0, ICD10: G93.0 - MRI BRAIN WO/W IVCON - IV CONTRAST (RADIOLOGY PROCEDURE) 7. Chronic right-sided low back pain without sciatica - ICD9: 724.2, 338.29, ICD10: M54.5, G89.29 - consider physical therapy - XR LUMBAR GENERAL 3V AP/LAT/L5-S1 8. Osteoporosis, unspecified osteoporosis type, unspecified pathological fracture presence - ICD9: 733.00, ICD10: M81.0 - DXA-AXIAL SKELETON WITH VFA Xander Gunn MD RTO in six months and prn. HEPATITIS C AB IA Collected: 12/16/2017 Status: F Source: [place] 9:48 AM [facility] REPOSITORY TYPE CODE TESTS RESULT OUT OF REFERENCE UNITS RANGE LAB AHCV Negative Hepatitis C Ab Negative IA Performed By: #### AHCV, HFP, LIPB #### [facility] [employer] [address], [place] [address] HEPATIC FUNCTN PANEL Collected: 12/16/2017 Status: F Source: [place] 9:48 AM [facility] REPOSITORY TYPE CODE TESTS RESULT OUT OF REFERENCE UNITS RANGE LAB ALB 3.9-4.9 g/dL Albumin 4.2 LAB TBIL 0.2-1.3 mg/dL Bilirubin, Total 0.4 LAB CBIL <0.2 mg/dL Bilirubin,Conjuga <0.2 blanche LAB ALKP 32-117 U/L Alkaline Phosphatase 88 LAB AST 13-35 U/L AST 23 LAB ALT 7-38 U/L ALT 18 LAB TP 6.3-8.0 g/dL Protein, Total 7.4 Performed By: #### AHCV, HFP, LIPB #### [facility] [employer] [address], [place] [address] LIPID PANEL, BASIC Collected: 12/16/2017 Status: F Source: [place] 9:48 AM [facility] REPOSITORY TYPE CODE TESTS RESULT OUT OF REFERENCE UNITS RANGE LAB CHOL <200 mg/dL Cholesterol 181 Result Comment: <200 mg/dL, Desirable 200-239 mg/dL, Borderline high >239 mg/dL, High LAB TRIGLY <150 mg/dL Triglyceride 115 Result Comment: <150 mg/dL, Normal 150-199 mg/dL, Borderline high 200-499 mg/dL, High >499 mg/dL, Very high LAB HDL >39 mg/dL HDL-Cholesterol 58 Result Comment: 40-59 mg/dL, Acceptable >59 mg/dL, High: Negative risk factor for coronary heart disease <40 mg/dL, Low: Positive risk factor for coronary heart disease LAB LDL <100 mg/dL LDL-Cholesterol High 100 Result Comment: <100 mg/dL, Optimal 100-129 mg/dL, Near optimal/above optimal 130-159 mg/dL, Borderline high 160-189 mg/dL, High >189 mg/dL, Very high Secondary prevention optimal LDL Cholesterol levels are recommended to be < 70 mg/dL LAB NONHDL <130 mg/dL Non HDL Cholesterol 123 Result Comment: <130 mg/dL, Optimal 130-159 mg/dL, Near optimal/above optimal 160-189 mg/dL, Borderline high 190-219 mg/dL, High >219 mg/dL, Very high Secondary prevention optimal non HDL Cholesterol levels are recommended to be < 100 mg/dL LAB FT hrs Fasting Time 12 LAB VLDL <30 mg/dL VLDL Cholesterol 23 LAB TCHDL <5.10 TC:HDL Ratio 3.12 LAB LDLHDL <2.54 LDL:HDL Ratio 1.72 Result Comment: Reference: 1. National Cholesterol Education Program ATP III Guideline At-A-Glance Quick Desk Reference: National Heart, Lung, and Blood [place]. National Institutes of Health. 2001: NIH Publication No. 01-3305. 2. An International Atherosclerosis Society position paper: global recommendations for the management of dyslipidemia: executive summary, Atherosclerosis. 2014: 232(2):410-413. Performed By: #### AHCV, HFP, LIPB #### [facility] [address], [place] [address] CNCO Observed: 12/09/2017 Status: COMPLETED Source: [place] 11:06 AM [facility] REPOSITORY HNO ID: [id number] Author: Mammography Coordinator Service: (none) Author Type: Physician Type: Letter Filed: 12/13/2017 11:31 PM Note Text: December 09, 2017 PID: [id number] Penelope Cedillo [address] [place] [address] Dear Ms. Cedillo, We are pleased to inform you that the results of your recent breast imaging exam on 12/09/2017 are normal. Early detection of cancer is very important. We also understand recommendations regarding breast cancer screening are controversial. Please discuss with your primary care provider which strategy is best for you and whether a mammogram is right for you. Your imaging studies and report will be kept on file at [facility] as part of your permanent medical record and are available for your continuing care. Thank you for allowing us to help in meeting your health care needs. Sincerely, Dr. Conde Interpreting Radiologist [facility] (Normal over 40) FELISA SCREENING Observed: 12/09/2017 Status: F Source: [place] 10:[address] [facility] REPOSITORY * * *Final Report* * * DATE OF EXAM: Dec 09 2017 10:39AM [facility] 0581 - [facility] SCREENING / PROCEDURE REASON: multiple diagnoses * * * * Physician Interpretation * * * * RESULT: #[id number] - [facility] SCREENING BILATERAL DIGITAL SCREENING MAMMOGRAM WITH CAD: 12/09/2017 HISTORY: Multiple Diagnoses /Screening Mammogram - patient reports NO symptoms /priors available for comparison. RESULT: TECHNIQUE: The study was acquired using full field digital technology and interpreted from soft copy. Current study was also evaluated with a Computer Aided Detection (CAD). Comparison is made to exams dated: 11/30/2016 mammogram, 11/25/2015 mammogram, and 11/21/2014 mammogram - [facility]. There are scattered fibroglandular elements in both breasts. The patient is status post lumpectomy left breast in the lower aspect. The left breast has post-operative findings. No significant masses, calcifications, or other findings are seen in either breast. IMPRESSION: NEGATIVE There is no mammographic evidence of malignancy.A 1 year screening mammogram is recommended. Edilberto Conde M.D. pt/juan ramon:12/09/2017 11:06:22 President + Publisher: Love PAZ)(Chas), [facility] letter sent: Normal over 40 Mammogram BI-RADS: 1 Negative Blow Molding Machine Tender: Juan Ramon Transcribe Date/Time: Dec 09 2017 10:39A Dictated by: EDILBERTO CONDE MD This examination was interpreted and the report reviewed and electronically signed by: EDILBERTO CONDE MD on Dec 09 2017 11:06AM EST [id number] ALLERGIES ALLERGIES DATE TYPE / NAME / CODE REACTION SEVERITY SOURCE CODE 08/18/2018 Drug Penicillins/F0010 Anaphylaxis [place] Allergy/41 70766(RXNORM) [facility] [id number]([facility]) Repository 08/18/2018 Drug hydrocodone/F0060 Vomiting [place] Allergy/41 49806(RXNORM) [facility] 3140147([facility]) Repository 08/18/2018 Drug acetaminophen/F00 Vomiting [place] Allergy/41 8290604(RXNORM) [facility] 3792782([facility]) Repository 08/18/2018 Drug loratadine/O28281 Hives [place] Allergy/41 3909(RXNORM) [facility] 1090460( Hospital OMED CT) Repository 05/19/2011 DRUG TAMOXIFEN OTHER: SEE C [facility] INGREDI/41 Other [place] 2314200(SN Repository OMED CT) 01/31/2009 DRUG/27074 HYDROCODONE-ACETA Vomiting [facility] 1003(SNOME MINOPHEN Other [place] D CT) Repository 11/16/2005 DRUG LORATADINE HIVES [facility] INGREDI/41 Other [place] 3684541(SN Repository OMED CT) 09/01/2005 Drug PENICILLINS ANAPHYLAXIS [facility] Class/4195 Other [place] [address]502(SNOM Repository ED CT) ENCOUNTERS ENCOUNTERS ADMIT/DISCHARGE ACCOUNT ADMITTING ENCOUNTER LOCATION SOURCE NUMBER CLASS 10/11/2018 [id number] Ambulatory BMSBuilding:Seth Izquierdo MS.CF.[facility] Repository 10/11/2018 [id number] Ambulatory BMSBuilding:Seth Izquierdo MS.[facility] Repository 10/11/2018/10/11/20 [id number] Ambulatory [address] ing:[facility] Repository 09/28/2018 [id number] Ambulatory [facility] ing:LAB Repository 09/15/2018 [id number] Ambulatory BMSBuilding:Seth Izquierdo MS.CF.[facility] Repository 09/15/2018 [id number] General acute hospital ing:[facility] Repository 08/31/2018/09/01/20 [id number] Ambulatory [address] Repository 08/18/2018/08/18/20 [id number] Ambulatory BMSBuilding:Seth Izquierdo 18 MS.[facility] Repository 08/17/2018 [id number] Ambulatory BMSBuilding:Seth Izquierdo MS.[facility] Repository 08/10/2018/08/10/20 [id number] Ambulatory [address] Repository 07/30/2018/08/01/20 [id number] Ambulatory [address] Repository 07/12/2018/07/13/20 [id number] Ambulatory [address] Repository 07/05/2018/07/05/20 [id number] Ambulatory [address] Repository 03/10/2018/03/15/20 [id number] Ambulatory [address] Main [place] Repository 02/07/2018/02/10/20 [id number] Ambulatory [address] Main [place] Repository 01/28/2018/01/29/20 [id number] NEREIDA Ambulatory [address] Other [place] Repository 01/17/2018/01/19/20 [id number] Ambulatory [address] Main [place] Repository 01/17/2018 [id number] Ambulatory [facility] Main [place] Repository 01/06/2018/01/07/20 [id number] Ambulatory [address] Main [place] Repository 01/03/2018/01/04/20 [id number] Ambulatory [address] Main [place] Repository 12/23/2017 [id number] Ambulatory [facility] Main [place] Repository 12/23/2017/12/23/19 [id number] Ambulatory [address] Repository 12/23/2017/12/23/19 [id number] Ambulatory [address] [place] Repository 12/16/2017/12/16/19 [id number] Ambulatory [address] Main [place] Repository 12/09/2017/12/09/19 [id number] Ambulatory [address] Repository PAYERS PAYERS ENCOUNTER GUARANTOR PAYER SUBSCRIBER SOURCE 10/11/2018 PENELOPE [id number] Primary PENELOPE BYRNESOB: [place] [address] Insurance:[employer] [id number] Community BOX [facility] [place], Number: Repository [place] [address]Vyi: [id number] Date:8733-56-46JV BOX ([address] [address]JF: 10/11/2018 Secondary NOT GIVENUNK [place] Insurance:SELF PAY [facility] Number: Effective Repository Date:2018-10-11 10/11/2018 PENELOPE [id number] Primary PENELOPE BYRNESOB: [place] [address] Insurance:[facility] [id number] Community BOX [facility]ICARE [facility] [address], Number: [place]ository [place] [address]Agg: [id number] Date:6121-62-50VB BOX () [address] [place] [phone]: 10/11/2018 Secondary NOT GIVENUNK [place] Insurance:SELF PAY [facility] Number: Effective Repository Date:2018-10-11 10/11/2018 PENELOPE Baird [id number] Primary PENELOPE MYRICKNDOB: [place] [address] Insurance:[employer]MA[employer] [id number] Community BOX [facility]ICARE [facility] [address], Number: Repository [place] [address]Usb: [id number] Date:9218-55-58VL BOX () [address] [place] [address]TB: 10/11/2018 Secondary NOT GIVENUNK [place] Insurance:SELF PAY [facility] Number: Effective Repository Date:2018-09-20 09/28/2018 PENELOPE A [id number] Primary PENELOPE MYRICKNDOB: [place] [address] Insurance:HUMANA [id number] Community BOX [facility]IC[facility] [address], Number: Repository [place] [address]Vha: [id number] Date:8464-48-84GF BOX () [address] [place] [phone]: 09/28/2018 Secondary NOT GIVENUNK [place] Insurance:SELF PAY [facility] Number: Effective Repository Date:2018-09-28 09/15/2018 PENELOPE A [id number] Primary PENELOPE MYRICKNDOB: [place] [address] Insurance:HUMANA [id number] Community BOX [facility]ICARE [facility] [address], Number: Repository [place] [address]Rrk: [id number] Date:8709-01-41AQ BOX () [address] [place] [phone]: 09/15/2018 Secondary NOT GIVENUNK [place] Insurance:SELF PAY [facility] Number: Effective Repository Date:2018-09-15 09/15/2018 PENELOPE Brie [id number] Primary PENELOPE Brie GARNDOB: [place] [address] Insurance:[employer] [id number] Community BOX [facility]ICARE [facility] [address], Number: Repository [place] [address]Xfr: [id number] Date:6280-85-88PQ BOX () [address] [place] [id number]: 09/15/2018 Secondary NOT GIVENUNK [place] Insurance:SELF PAY [facility] Number: Effective Repository Date:2018-08-18 08/18/2018 PENELOPE Brie [id number] Primary PENELOPE Brie MYRICKNDOB: [place] [address] Insurance:[employer] [id number] Community [address], [place] [facility] [place] [address]Akv: Number: Repository [id number] () Date:8417-66-59PX [address] [place] [address]QA: 08/18/2018 Secondary NOT GIVENUNK [place] Insurance:SELF PAY [facility] Number: Effective Repository Date:2018-08-18 08/17/2018 PENELOPE Brie [id number] Primary NOT GIVENUNK [place] [address] Insurance:SELF PAY [address] [place] [id number]: Number: Effective Repository Date:2018-08-17 ()
== END ==
PROVIDERS: Family Provider Family Medicine; PCP Family Medicine; Referring Provider Physician Assistant Medical; Visit Provider Physician Assistant Medical
DX: I10 Essential (primary) hypertension (principal); R06.02 Shortness of breath; R07.9 Chest pain, unspecified; R94.39 Abnormal result of other cardiovascular function study
CPT/HCPCS: 36415; 71046; 80048; 85025; 85610; 85730

== ENCOUNTER 2018-10-11 07:37 | Day surgery (SDC) | payer MEDICARE, SELFPAY ==
[2018-08-18 10:07] VITALS: BMI 36.1
[2018-10-10 10:42] VITALS: BMI 36.1
--- NOTE | 2018-10-11 09:03 | PCM.HP.CAR ---
Problem List (1) Chest pain Status: Acute Qualifiers: (2) SOB (shortness of breath) Status: Acute (3) Abnormal stress test Status: Acute (4) Hyperlipemia Status: Chronic Qualifiers: (5) Essential hypertension Status: Chronic History of Present Illness Date of Admission: 10/11/18 The patient is a 68 year old female who has previously been evaluated in the outpatient setting for concerns of chest discomfort, shortness of breath, superimposed upon hyperlipidemia and hypertension, who now presents for further cardiovascular evaluation based upon an abnormal exercise tolerance test/imaging study. Since her original evaluation she underwent a transthoracic echocardiogram on 09/15/2018. At that time her left ventricle was normal with an LVEF of 65% with moderate left atrial enlargement, mild mitral annular calcification, equivocal mitral valve prolapse with mild MR, trivial TR, mild focal aortic valve calcification with trivial AI, trivial AZ, and an estimated RV systolic pressure of 22 mmHg. Diastolic dysfunction was considered indeterminate. She underwent an exercise tolerance test/nuclear imaging study on 09/15/2018. At that time she exercised on a Kushal protocol for 4 minutes and 45 seconds achieving 96% predicted maximal heart rate with a peak blood pressure 158/82 mmHg and a peak metabolic capacity of 6 metabolic equivalents. She had an isolated PVC during exercise. She had no obvious ECG changes. Her nuclear images suggested changes in the distal anterior apical segments being somewhat more prominent at stress as opposed to rest potentially compatible shifting soft tissue attenuation/artifact although an area of myocardial ischemia could not be excluded. Her gated LVEF was 68%. She states over time she still has concerns of exertional chest pressure as well as feeling somewhat short of breath and dyspneic. She has denied obvious orthopnea or PND. There is been no peripheral pitting edema. There is been no near syncope or syncope. Based upon her ongoing cardiovascular risk factors, symptoms, and objective findings she has been recommended for further evaluation with diagnostic cardiac catheterization. The procedure and risks were discussed with her. She was agreeable to this approach. [] Past Medical History Allergies/Adverse Reactions: Allergies loratadine [From Claritin] Allergy (Severe, Verified 08/18/18 10:07) Hives Penicillins Allergy (Severe, Verified 08/18/18 10:07) Anaphylaxis acetaminophen [From Vicodin] Adverse Reaction (Severe, Verified 08/18/18 10:07) Vomiting hydrocodone [From Vicodin] Adverse Reaction (Severe, Verified 08/18/18 10:07) Vomiting Home Medications: Ambulatory Orders Medication Instructions Recorded ascorbate calcium 500 mg capsule 500 mg PO DAILY 08/17/18 aspirin 81 mg tablet,delayed 162 mg PO DAILY tab 08/17/18 release celecoxib 200 mg capsule 200 mg PO DAILY 08/17/18 cholecalciferol (vitamin D3) 1,000 2,000 unit PO DAILY tab 08/17/18 unit tablet esomeprazole magnesium 20 mg 20 mg PO DAILY 08/17/18 capsule,delayed release glucosamine 375 mg-chondroitin sul 2 cap PO DAILY cap 08/17/18 A 200 mg-herb no.182 100 mg capsule lisinopril 10 1 tab PO DAILY 08/17/18 mg-hydrochlorothiazide 12.5 mg tablet multivitamin tablet 1 tab PO DAILY 08/17/18 omega-3 fatty acids 1,000 mg 1,000 mg PO DAILY 08/17/18 capsule simvastatin 10 mg tablet 10 mg PO QPM 08/17/18 clopidogrel 75 mg tablet 75 mg PO DAILY #30 tab 09/19/18 Past Medical History (Chronic Problems): Chronic Problems (Last Reviewed 08/18/18 @ 10:13 by Elmira Martinez) Essential hypertension (Chronic) Hyperlipemia (Chronic) GERD (gastroesophageal reflux disease) (Chronic) Smoking Status: Never smoker Alcohol: None Drugs: None Review of Systems - Review of Systems General: Denies: Fever, Night Sweats, Fatigue Cardiovascular: Reports: Chest Discomfort at Rest, Shortness of Breath with Exertion. Denies: Chest Discomfort, Shortness of Breath, Orthopnea, PND, Peripheral Edema, Palpitations, Lightheadedness, Dizziness, Near Syncope, Syncope Respiratory: Reports: Shortness of Breath. Denies: Cough, Sputum Production, Hemoptysis Gastrointestinal: Denies: Hematemesis, Hematochezia, Melena Genitourinary: Denies: Dysuria, Hematuria Skin: Denies: Rash Subjectve: This is a pleasant 68-year-old white female appears to be resting comfortably at the moment in no acute distress. Objective: Weight: 241 lb Body Mass Index (BMI) 36.1 General: Awake, Alert, Oriented x 3, Cooperative, No Acute Distress HEENT: Atraumatic, Normocephalic, PERRL, EOMI, Sclera Non Icteric Oral: Moist Mucosa Neck: Supple, Good ROM, No JVD Lungs: Clear to auscultation Cardiovascular: Regular Rhythm, Normal S1, Normal S2 Vascular: No Carotid Bruits Abdomen: Bowel Sounds Present, Soft, Non Tender Extremities: No Cyanosis, No Clubbing, No edema Neurological: No Focal Motor or Sensory Deficit Psych/Mental Status: Appropriate, Normal Affect VTE Information - Inpt Only VTE Present on Admission: No VTE Mechan Device Prophylaxis: None VTE Pharm Prophylaxis ordered?: No Reason prophylaxis not ordered:: Treatment Not Indicated Rhythm: Sinus rhythm EKG: Sinus rhythm; leftward axis; poor R wave progression ECHO: As noted above Stress Test: As noted above CXR: Per radiology: Concerns of mild interstitial fibrosis; small hiatal hernia; no definite acute disease process Assessment/Plan 1. Chest pain/shortness of breath The patient has continue with concerns of her chest pain/shortness of breath. As noted above she does have cardiovascular risk factors. She has an abnormal exercise tolerance test/imaging study. She is going to be further evaluated for the possibility of underlying CAD with diagnostic cardiac catheterization. The procedure and risks were discussed with her. She was agreeable to this approach. 2. Abnormal exercise tolerance test/imaging study At the present time she continues with her cardiovascular risk factors and symptoms and her objective findings. She is scheduled for upcoming diagnostic cardiac catheterization as noted above. 3. Hyperlipidemia We will continue risk factor evaluation care as deemed appropriate. 4. Hypertension She will continue medical management as deemed appropriate. Comment: The above was discussed and reviewed with the patient. This note was generated with [employer] dictation software. It may contain incorrect words, spelling, and punctuation that were not noted in checking the note before signing.
--- NOTE | 2018-10-11 09:55 | CL.D_ITS ---
Patient Name: PABLO CEDILLO Study Date: 10/11/2018 Performing: Robert Angulo MD Ht: 68.5 inches 174 cm : 1950 Wt: 240.3 lbs 109 kg Age: 68 Gender: female BSA: 2.22 PROCEDURE(S) PERFORMED [id number]/LV CLINICAL PROFILE AND INDICATIONS Indications: Suspected CAD Heart Failure: None Stress/Imaging Stress Test w/SPECT MPI: Yes Result: PositiveStress Test with SPECT MPI: Positive Angina Classification Anginal Classification w/in 2 Weeks: CCS III CAD Presentations: Stable angina. 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 The risks and benefits of the procedure as well as a full d escription of our services here and current unavailability of surgical backup were fully explained to the patient and/or their significant other prior to the catheterization. The Timeout was completed, verifying the correct patient and procedure. The patient's procedural site was prepped and draped in the usual fashion. Local anesthetic was given subcutaneously to right radial region with Lidocaine 2% . Using a modified Seldinger technique, arterial access was obtained via the right radial artery, a 6 Fr sheath was inserted. Left Coronary Artery selective angiography was performed in multiple views u sing a 5 Fr. 4.0 [place] catheter. Right Coronary Artery selective angiography was then performed in mu ltiple views using a 5 Fr. 4.0 [place] catheter. Left Ventriculography was performed in HICKEY projection using a 5 Fr. [place] catheter. LV to AO pullback pressures were then recorded.The arterial sheath was pulled and a TR Band was applied for hemostasis. 14cc of air inserted CORONARY ANGIOGRAPHY DOMINANCE: Right Dominant LEFT HEART ASSESSMENT Left Ventricular Ejection Fraction: by LV Gram 65 % Normal LV wall motion Normal Left Ventricular End Diastolic Pressure LVEDP: 3 mmHg LEFT MAIN: Angiographically normal, Angiographically normal LEFT ANTERIOR DECENDING ARTERY: Angiographically normal CIRCUMFLEX ARTERY: Angiographically normal RIGHT CORONARY ARTERY: MID RCA: Mild luminal irregularities VALVE FINDINGS: Normal Aortic Valve function Normal Mitral Valve function AORTIC ROOT: Angiographically normal COMPLICATIONS No Complications PROCEDURE MEDICATIONS Fentanyl 50 mcg IV Versed 1 mg IV Versed 1 mg IV Fentanyl 50 mcg IV Oxygen: 2 L/min via nasal cannula Heparin diluted in 23cc Heparinized saline. Patient given 10cc IA of this solution. 10/11/2018 09:25 :53 Verapamil 2.5mg, Ntg 100mcgs, 2000 units of Heparin diluted in 23cc Heparinized saline. Patient give n 10cc IA of this solution. 10/11/2018 09:25:53 SUMMARY OF HEMODYNAMIC DATA Time AIR REST ECG 08:04:42 AO 127/69 (96) SA 09:27:17 LV 146/-3, 9 09:34:35 LV 134/-5, 3 09:34:42 LV 144/-4, 9 09:35:37 LV 146/-6, 13 09:35:44 LVp 147/-3, 9 09:35:48 AOp 148/62 (101) 09:35:53 Signed By Robert Angulo MD On 10/11/2018 09:54:47 Robert Angulo MD
--- OUTSIDE RECORDS SUMMARY | 2018-11-27 05:39 | XMS RPT_ITS ---
:1950 Author Organization OHIP Care Team Providers Name Role Phone LYNDA GIL (ALBERTO) Referring Unavailable XANDER GUNN Referring Unavailable XANDER [...] Unavailable XANDER GUNN Referring Unavailable LYNDA GIL (BAKESHOP CLEANER) Attending Unavailable LYNDA GIL (ALBERTO) Referring Unavailable MIKE PADRON Admitting Unavailable MIKE PADRON Attending Unavailable Elmira Martinez Attending Unavailable Moodispaw, Robert Attending Unavailable Moodispaw, Robert Referring Unavailable Luis A, Xander Primary Care Unavailable Elmira Hook Attending Unavailable Elmira Hook Referring Unavailable Luis A, Xander Primary Care Unavailable Moodispagalileo, Rboert Attending Unavailable Moodispaw, Robert Referring Unavailable Luis A, Xander Primary Care Unavailable Moodispaw, Robert Consulting Unavailable Moodispaw, Robert Attending Unavailable Moodispaw, Robert Referring Unavailable Canalou, Xander Primary Care Unavailable Moodispaw, Robert Attending Unavailable HoneyDionte Referring Unavailable Moodispaw, Robert Attending Unavailable Moodispaw, Robert Referring Unavailable Luis A, Xander Primary Care Unavailable Moodispaw, Robert Consulting Unavailable Alexis Malagon Attending Unavailable PROBLEMS PROBLEMS DATE TYPE CONDITION / CODE ATTENDING STATUS SOURCE 09/15/2018 Unknown R07.9 - Chest Moodispaw, Robert Active [facility] pain, unspecified Community / R07.9(ICD-10) Hospital Repository 09/15/2018 Unknown E78.5 - Moodispaw, Robert Active [facility] Hyperlipidemia, Community unspecified / Hospital E78.5(ICD-10) Repository 09/15/2018 Unknown I10 - Essential Moodispaw, Robert Active [facility] (primary) Community hypertension / Hospital I10(ICD-10) Repository 09/15/2018 Unknown R06.02 - Shortness Moodispaw, Robert Active [facility] of breath / Community R06.02(ICD-10) Hospital Repository 08/31/2018 Active Unknown / KASI, Active [facility] UNK(Unknown) LYNDA (BAKESHOP CLEANER) [facility] [place] Repository 07/12/2018 Active 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 / I65.23(ICD-10) 07/30/2018 Active Encounter for NA Active [facility] immunization / [place] Z23(ICD-10) Repository 07/05/2018 Active Other terminal gauger NA Active [facility] (current) drug [place] therapy / Repository Z79.899(ICD-10) 01/28/2018 Active Trigger finger, MIKE PADRON Active [facility] right middle [facility] [place] finger / Repository M65.331(ICD-10) 01/17/2018 Active Pain, unspecified NA Active [facility] / R52(ICD-10) [place] Repository 05/25/2017 Active Cerebral cysts / NA Active [facility] G93.0(ICD-10) [place] Repository 01/03/2018 Active Age-related NA Active [facility] osteoporosis [place] without current Repository pathological fracture / M81.0(ICD-10) 12/23/2017 Active Encounter for NA Active [facility] screening for [place] other disorder / Repository Z13.89(ICD-10) 12/23/2017 Active Low back pain / NA Active [facility] M54.5(ICD-10) [place] Repository 12/23/2017 Active Other chronic pain NA Active [facility] / G89.29(ICD-10) [place] Repository 05/25/2017 Active 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, [place] unspecified / Repository I63.9(ICD-10) 12/16/2017 Active Encounter for NA Active [facility] screening for [place] other viral Repository diseases / Z11.59(ICD-10) 08/31/2017 Active Malignant neoplasm NA Active [facility] of lower-inner [place] quadrant of left Repository female breast / C50.312(ICD-10) 08/31/2017 Active Estrogen receptor NA Active [facility] positive status [place] (ER+) / Repository Z17.0(ICD-10) 12/09/2017 Active Encounter for NA Active [facility] screening [place] mammogram for Repository malignant neoplasm of breast / Z12.31(ICD-10) PROCEDURES PROCEDURES No Procedure Records FoundRESULTS RESULTS HISTORY AND PHYSICAL Observed: 10/11/2018 Status: F Source: [place] EXAM 9:12 AM [facility] REPOSITORY [facility] Medical Records Department [address] [place] [address] History and Physical 10/11/18 0903 MR#: [id number] Acct: [id number] Name: PENELOPE CEDILLO Rep #: [id number] : 1950 68 From: Robert Angulo MD PCP: Xander Gunn MD Status: REG [facility] Location: [facility] Problem List (1) Chest pain Status: [...] aortic valve calcification with trivial AI, trivial ME, and an estimated RV systolic pressure of [...] the patient. This note was generated with OrderWithMe dictation software. It may contain incorrect words, spelling, and punctuation that were not noted in checking the note before signing. 10/11/1812 <Electronically signed by Robert Angulo MD> Date Robert Angulo MD Cosigner Signature: Date (if applicable) CC: Robert Angulo MD; Xander Gunn MD Signed CNCO Observed: 09/29/2018 Status: COMPLETED Source: [address] 12:00 AM [facility] REPOSITORY Letter Text [facility] Department of Family Medicine [address] [facility]. [place], [place] [address] Penelope Cedillo [address] [address] September 29, 2018 Dear , Due to unforeseen circumstances, there has been a change in the schedule for Xander Gunn MD Your original appointment scheduled for 01/10/2019 at 1:00 PM has been cancelled, please give our office a call at [phone]. I apologize for any inconvenience this may cause you. Sincerely, Department of Family Medicine [facility] CHEST PA AND LATERAL Observed: 09/28/2018 Status: F Source: [place] 11:35 AM [facility] REPOSITORY [facility] Imaging Services [address] [place] [address] Chest PA and Lateral MR#: [id number] Acct: [id number] Name: PENELOPE CEDILLO Rep #: [id number] : 1950 F 68 From: Alfredo Long MD PCP: Xander Gunn MD Status: REG CLI Study: Chest PA and Lateral Date of Exam: 09/28/18 Exam# [id number] Ordering Dr: Elmira Hook NO CHEST COMPLAINTS, [...] , CC: Elmira Hook; Xander Gunn MD Leacher: Signed CBC W/DIFF, AUTOMATED Collected: 09/28/2018 Status: F Source: [place] 11:25 AM [facility] REPOSITORY TYPE CODE TESTS RESULT OUT OF [...] Lymph 2.64 Performed By: #### L100.0100 #### [facility] [address] [place], [address] PROTHROMBIN TIME W/INR Collected: 09/28/2018 Status: F Source: [place] 11:25 AM [facility] REPOSITORY TYPE CODE TESTS RESULT OUT OF RANGE REFERENCE UNITS LAB L300.4150 11.7-14.9 SECONDS Normal PROTIME 13.4 LAB L300.4200 Normal INR 1.0 Performed By: #### L300.3900, L300.4310 #### [facility] [address] [place], [address] PARTIAL THROMBOPLAST Collected: 09/28/2018 Status: F Source: [place] TIME 11:25 AM [facility] REPOSITORY TYPE CODE TESTS RESULT OUT OF RANGE REFERENCE UNITS LAB L300.4310 24.1-36.2 Seconds Normal PTT 29.1 Performed By: #### L300.3900, L300.4310 #### [facility] [address] [place], [address] BASIC METABOLIC Collected: 09/28/2018 Status: F Source: [place] PROFILE (BMP) 11:25 AM [facility] REPOSITORY TYPE CODE TESTS RESULT OUT OF [...] GAP 6 Performed By: #### L500.2500 #### [facility] [address] [facility] [place], [address] ECHOCARDIOGRAM COMPLETE Observed: 09/15/2018 Status: F Source: [place] 8:23 PM [facility] REPOSITORY [facility] Cardiovascular Services [address] [place] [address] Echo Complete 09/15/18 0901 MR#: [id number] Acct: [id number] Name: PENELOPE CEDILLO Rep #: [id number] : 1950 68 From: Robert Angulo MD Attending Dr: Robert Angulo MD Status: REG CLI Ordering Dr: Robert Angulo MD Date: 09/15/18 Location: [facility] Sex: F C Admitted: Reason For Study: [...] MD Date Dictated: 09/15/18900 Date Transcribed: 09/15/182021 Leacher: Signed STRESS REPORT Observed: 09/15/2018 Status: F Source: [place] 9:39 AM [facility] REPOSITORY [facility] Cardiovascular Services [address] [place] [address] MR#: [id number] Acct: [id number] Name: PENELOPE CEDILLO Rep #: [id number] : 1950 68 From: Robert Angulo MD [...] 68 %. This note was generated with [employer] software. It may contain incorrect words, spelling, and punctuation that were not noted in checking the note before signing. 09/15/18938 <Electronically signed by Robert Angulo MD> Date Robert Angulo MD CC: Robert Angulo MD; Xander Gunn MD Date Dictated: 09/15/18924 Date Transcribed: 09/15/18924 Leacher: PM Signed PROGRESS Observed: 08/31/2018 Status: COMPLETED Source: [address] 10:33 AM [facility] REPOSITORY O ID: [id number] Author: Lynda Gil Service: (none) Author Type: [...] on 01/07/09. It was ER positive and ME negative. ? Pathology showed residual DCIS measuring [...] Resp:denies cough, occ.sob/luis Cardiac:+chest pressure, occ. palpitation-stress [id number]-Phk. Pt. having a stress next week-she is [...] APRN.CNP CNOVSP Observed: 08/31/2018 Status: COMPLETED Source: [address] 10:30 AM [facility] REPOSITORY Visit (SP) Office (MARCY) PENELOPE CEDILLO ([id number]) 1950 F Date Time Provider Department 08/31/18 [...] on 01/07/09. It was ER positive and ME negative. ? Pathology showed residual DCIS measuring [...] Resp:denies cough, occ.sob/luis Cardiac:+chest pressure, occ. palpitation-stress gror-2954-Xmn. Pt. having a stress next week-she is [...] and agrees with the plan. Lynda Gil, ALEC.BAKESHOP CLEANER Referring Provider: LYNDA GIL [[id number]] Allergies As of Date: 08/31/2018 Noted Allergy [...] for screening mammogram for high-risk patient [Z12.31] Order(s):[facility] [[id number]] Order #: [id number] FUTURE Follow-up and Disposition History Recorded Prescriptions [...] Other pulmonary embolism and infarction [I26.99]INVALID FOR*05/25/2017 half-way (current) use of anticoagulants [Z79.*INVALID FOR*05/25/2017 ER+ [...] CARDIOLOGY VISIT Observed: 08/18/2018 Status: F Source: [place] REPORT 11:16 AM [facility] REPOSITORY [facility] [address] [facility] [place] [address] OFFICE VISIT Date of Service: 08/18/18 MR#: [id number] Acct: [id number] Name: PENELOPE CEDILLO Rep #: [id number] : 1950 Provider: Robert Angulo MD Age/Sex: 68/F Location: [facility] Status: Signed HPI HPI Details: PENELOPE CEDILLO, is a 68 F who presents to the office today for outpatient cardiovascular consultation based upon concerns of a history of palpitations, chest discomfort, and shortness of breath/dyspnea. She has previously been evaluated through the [facility] system in 2016. At that time it [...] 138/88 H Intake Visit Reasons: Transfer from [facility] Allergies loratadine [From Claritin] Allergy (Severe, Verified [...] mg PO QPM 08/17/18 [History Confirmed 08/18/18] [facility] History SOB (shortness of breath) (Acute) [...] Observed: 08/18/2018 Status: F Source: [place] [facility] 10:04 AM [facility] [address] [place] [address] 12 Lead EKG performed by [facility] 08/18/18 1004 MR#: [id number] Acct: [id number] Name: PENELOPE CEDILLO Rep #: [id number] : 1950 68 From: Robert Angulo MD Attending Dr: Robert Angulo MD Status: DEP AMB Ordering Dr: Robert Angulo MD Date: 08/18/18 Location: [facility] Sex: F C Admitted: [facility]/12 Lead EKG performed by [facility] ECG Report Interpretation Sinus Rhythm Leftward axisPoor R wave progressionElectronically signed on 08/18/2018 at 13:46 by Robert Angulo Software Version [id number] 08/18/18 1348 Date Robert Angulo MD CC: Dionte Méndez Date Dictated: 08/18/181003 Date Transcribed: 08/18/181003 Leacher: PM Signed CNNURSE Observed: 07/30/2018 Status: COMPLETED Source: [place] 10:30 AM [facility] REPOSITORY Nurse Visit (CORWST) PENELOPE CEDILLO ([id number]) 1950 F Date Time Provider Department 07/30/18 10:30 AM [facility] During your visit today, we recorded the following information about you: Kim Beverly Single Pointed Operator 07/30/2018 10:27 AM Signed 68 year old [...] dose of influenza vaccination? 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 Yes [facility] of [facility]izations adminstered today. 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 5749-0896 Season Patient is identified by name and date of : Yes [] CONTRAINDICATIONS color enhanced section Age less than 6 months? No Allergy to eggs, chicken, chicken feathers, or chicken dander? No Allergy to thimerosal (a preservative) or formaldehyde, gelatin? No History of severe reaction to any vaccine component or a previous dose of influenza vaccination? 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 Yes See immunization activity in [facility] for details of immunizations adminstered today. Patient age: [age] year old For The 6224-4314 Flu Season 6-35 months old: Fluzone 0.25 [...] time. PROGRESS Observed: 07/12/2018 Status: COMPLETED Source: [address] 10:18 AM [facility] [place] REPOSITORY O ID: [id number] Author: Xander Gunn Service: (none) Author Type: [...] Take 2 tablets by mouth once daily. xptcvptnzpv-fauopzkrxo-ofv#182 (COSAMIN ASU) 375-200-100 mg ORAL Cap Take [...] children: 1 Occupational History Occupation Employer Comment [employer]* Social History Main Topics Smoking status: [...] prn. CNOV Observed: 07/12/2018 Status: COMPLETED Source: [address] 10:00 AM [facility] REPOSITORY [facility]ENEL[facility] CEDILLO ([id number]) 1950 F Date Time Provider Department 07/12/18 [...] Take 2 tablets by mouth once daily. hqdzlqtjhgl-xiabjtfzaa-ixb#182 (COSAMIN ASU) 375-200-100 mg ORAL Cap Take [...] in cecum - COLONOSCOP W/ OR W/O [facility] SPEC 05/18/14 normal - EGD W/O [facility] SPECIMEN W/BX gastritis, hiatal hernia - INCISE [...] children: 1 Occupational History Occupation Employer Comment [employer]* Social History Main Topics Smoking status: [...] months and prn. 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 Diabetes Care. 2016.39(Suppl 1). LAB [...] actual GFR. Performed By: #### BMP #### [facility] [address] [place] [address] FLOYDUTRESTEPHANIA Observed: 06/07/2018 Status: COMPLETED Source: [address] 12:00 AM [facility] REPOSITORY Patient Outreach (FAMPST) PENELOPE CEDILLO ([id number]) 1950 F Date Time Provider Department 06/07/18 XANDER GUNN [facility] During your visit today, we recorded the following information about you: Allergies As of Date: 06/07/2018 Noted Allergy Reaction PENICILLINS 09/01/2005 10 - Anaphylaxis VICODIN (HYDROCODONE-ACETAMINOPHE*01/31/2009 11 - Vomiting CLARITIN (LORATADINE) 11/16/2005 4 - Hives Date Reviewed: 03/10/2018 Reviewed by: Mike Padron - Fully Assessed Visit Diagnosis:Medication management [Z79.899] Order(s):BASIC METABOLIC PNL [SQBMP] Order #: [id number] FUTURE Prescriptions as of 06/07/2018 Sig: SIMVASTATIN [...] Other pulmonary embolism and infarction [I26.99]INVALID FOR*05/25/2017 half-way (current) use of anticoagulants [Z79.*INVALID FOR*05/25/2017 ER+ [...] 08/12/18 PROGRESS Observed: 03/10/2018 Status: COMPLETED Source: [address] 12:58 PM [facility] [place] REPOSITORY HNO ID: [id number] Author: Mike Padron Service: (none) Author Type: Physician Type: Progress Notes Filed: 03/10/2018 1:03 PM Note Text: Mike Padron MD Department of Orthopaedics Orthopaedics [address] [facility] [address] Dept: [phone] Dept March 10, 2018 CHIEF COMPLAINT: Post [...] Take 2 tablets by mouth once daily. izaglndsqia-hqapkurtpp-vgr#182 (COSAMIN ASU) 375-200-100 mg ORAL Cap Take [...] [Loratadine] This note was partially generated using OrderWithMe voice recognition system, and there may be some incorrect words, spellings, and punctuation that were not noted in checking the note before saving. Mike Padron MD PROGRESS Observed: 03/10/2018 Status: COMPLETED Source: [address] 9:27 AM [facility] REPOSITORY [facility] ID: [id number] Author: Steff Samson Ma Service: (none) Author [...] surgery. CNOV Observed: 03/10/2018 Status: COMPLETED Source: [address] 9:15 AM [facility] REPOSITORY Office Visit (BLANCAWS) PENELOPE CEDILLO ([id number]) 1950 F Date Time Provider Department 03/10/18 9:15 AM MIKE PADRON During your visit today, we recorded the following information about you: Stfef Samson Ma 03/10/2018 1:03 PM Signed AMB [...] Mike Padron MD Department of Orthopaedics Orthopaedics [address] [place] [address] Dept: [phone] Dept March 10, 2018 CHIEF COMPLAINT: Post [...] Take 2 tablets by mouth once daily. qmtnnziksym-xtnyaxhvpx-cap#182 (COSAMIN ASU) 375-200-100 mg ORAL Cap Take [...] [Loratadine] This note was partially generated using OrderWithMe voice recognition system, and there may be some incorrect words, spellings, and punctuation that were not noted in checking the note before saving. 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 Dept February 07, 2018 CHIEF COMPLAINT: Surgical [...] Take 2 tablets by mouth once daily. zzdjpdjyvhl-ryejxqpaax-qnh#182 (COSAMIN ASU) 375-200-100 mg ORAL Cap Take [...] [Loratadine] This note was partially generated using OrderWithMe voice recognition system, and there may be some incorrect words, spellings, and punctuation that were not noted in checking the note before saving. SEB Macdonald Observed: 02/07/2018 Status: COMPLETED Source: [address] 10:00 AM [facility] REPOSITORY Office Visit (ORTHWS) PENELOPE CEDILLO ([id number]) 1950 F Date Time Provider Department 02/07/18 [...] PA-C Department of Orthopaedics Orthopaedics [address] [place] [address] Dept: [phone] Dept February 07, 2018 CHIEF COMPLAINT: Surgical [...] Take 2 tablets by mouth once daily. rwyapwivxmx-hzcvsblzzq-ulk#182 (COSAMIN ASU) 375-200-100 mg ORAL Cap Take [...] [Loratadine] This note was partially generated using OrderWithMe voice recognition system, and there may be some incorrect words, spellings, and punctuation that were not noted in checking the note before saving. Olive Valencia PA-C Referring Provider: MIKE PADRON [[id number]] Allergies As of Date: 02/07/2018 Noted Allergy [...] Other pulmonary embolism and infarction [I26.99]INVALID FOR*05/25/2017 half-way (current) use of anticoagulants [Z79.*INVALID FOR*05/25/2017 ER+ [...] 02/07/18 PROGRESS Observed: 02/07/2018 Status: COMPLETED Source: [address] 9:58 AM [facility] REPOSITORY HNO ID: [id number] Author: Shana Saravia Ma Service: (none) Author [...] PT ED Observed: 01/28/2018 Status: COMPLETED Source: [address] 11:39 AM [facility] REPOSITORY HNO ID: [id number] Author: Analisa SalamancaRn) INA Boone Service: Nursing [...] Signed By: Analisa Boone RN In Department: [facility] SURGERY NURSING PROG Observed: 01/28/2018 Status: COMPLETED Source: [address] 11:35 AM [facility] REPOSITORY HNO ID: [id number] Author: Analisa SalamancaRn) INA Boone Service: Nursing Author Type: Registered Nurse Type: Nursing Progress Note Filed: 01/28/2018 11:37 AM Note Text: Pt to Phase 2 awake alert cap refill less than 3 sec skin pink warm dressing dry intact . OPERATIVE NO Observed: 01/28/2018 Status: COMPLETED Source: [address] 11:22 AM [facility] REPOSITORY HNO ID: [id number] Author: Mike Padron Service: Orthopaedic Surgery Author Type: Physician Type: Operative Report Filed: 01/28/2018 1:35 PM Note Text: OPERATIVE/PROCEDURE REPORT LOG ID: [id number] Surgery/Procedure Date: 01/28/2018 Incision/Procedure Start Time: 10:59 AM Incision Close/Procedure End Time: 11:14 AM Surgeon(s)/Proceduralist(s) and Environmental Services Attendant(s): Surgeon(s) and Role: * Mike Padron - Primary Nurse Practitioner: Ilda Samaniego Physician Environmental Services Attendant: Olive Valencia (Pa) Procedure(s): Right, middle finger [...] OF CARE Observed: 01/28/2018 Status: COMPLETED Source: [address] 10:31 AM [facility] REPOSITORY O ID: [id number] Author: Olive Valencia (Pa) Service: Orthopaedic Surgery Author Type: Physician Environmental Services Attendant Type: Plan of Care Filed: 01/28/2018 10:31 AM Note Text: Mike Padron MD Department of Orthopaedics Orthopaedics [address] [place] [address] Dept: [phone] Dept ? ? January 17, 2018 ? ? CHIEF COMPLAINT: New Patient (Right middle trigger finger REF: Luis A ) ? HPI: Ms. Penelope Cedillo is [...] in cecum - [facility] ? 05/18/14 ? normal - EGD W/O [facility] SPECIMEN W/BX ? ? gastritis, hiatal hernia [...] 1 ? Occupational History Occupation Employer Comment [employer]* ? Social History Main Topics Smoking [...] Take 2 tablets by mouth once daily. hkbatdhcetv-tupbwgqzog-sha#182 (COSAMIN ASU) 375-200-100 mg ORAL Cap Take [...] electronic medical record. ? Xander Gunn MD [address] [facility] [address] ? This note was partially generated using OrderWithMe voice recognition system, and there may be some incorrect words, spellings, and punctuation that were not noted in checking the note before saving. ? ? Mike Padron MD ? NURSING PROG Observed: 01/28/2018 Status: COMPLETED Source: [address] 9:43 AM [facility] REPOSITORY HNO ID: [id number] Author: Kim (Rn) INA Boyle Service: (none) Author Type: Registered Nurse Type: Nursing Progress Note Filed: 01/28/2018 9:43 AM Note Text: {Select Nursing Progress Note Template:[id number] op teaching. PT ED Observed: 01/28/2018 Status: COMPLETED Source: [address] 9:42 AM [facility] REPOSITORY HNO ID: [id number] Author: Kim (Rn) INA Boyle Service: (none) [...] Signed By: Kim Boyle RN In Department: [facility] SURGERY PROGRESS Observed: 01/17/2018 Status: COMPLETED Source: [address] 12:54 PM [facility] [place] REPOSITORY HNO ID: [id number] Author: Mike Padron Service: (none) Author Type: Physician Type: Progress Notes Filed: 01/17/2018 12:56 PM Note Text: Mike Padron MD Department of Orthopaedics Orthopaedics [address] [facility] [address] Dept: [phone] Dept January 17, 2018 CHIEF COMPLAINT: New Patient (Right middle trigger finger REF: Canalou ) HPI: Ms. Penelope Cedillo is a [...] children: 1 Occupational History Occupation Employer Comment [employer]* Social History Main Topics Smoking status: [...] Take 2 tablets by mouth once daily. uskdskpoywf-fbkipvnkku-vhx#182 (COSAMIN ASU) 375-200-100 mg ORAL Cap Take [...] or electronic medical record. Xander Gunn MD [address] [facility] [address] This note was partially generated using OrderWithMe voice recognition system, and there may be some incorrect words, spellings, and punctuation that were not noted in checking the note before saving. Mike Padron MD CNOV Observed: 01/17/2018 Status: COMPLETED Source: [address] 10:40 AM [facility] REPOSITORY Office Visit (ORTHWS) PENELOPE CEDILLO ([id number]) 1950 F Date Time Provider Department 01/17/18 [...] Department of Orthopaedics Orthopaedics [address] [facility] [address] Dept: [phone] Dept January 17, 2018 CHIEF COMPLAINT: New Patient (Right middle trigger finger REF: Canalou ) HPI: Ms. Penelope Cedillo is a [...] in cecum - COLONOSCOP W/ OR W/O [facility] SPEC 05/18/14 normal - EGD W/O [facility] SPECIMEN W/BX gastritis, hiatal hernia - MASTECTOMY, [...] children: 1 Occupational History Occupation Employer Comment [employer]* Social History Main Topics Smoking status: [...] Take 2 tablets by mouth once daily. jzjthcwtbfj-taecslgxob-qyg#182 (COSAMIN ASU) 375-200-100 mg ORAL Cap Take [...] electronic medical record. Xander Gunn MD [address] [facility] [address] This note was partially generated using OrderWithMe voice recognition system, and there may be some incorrect words, spellings, and punctuation that were not noted in checking the note before saving. 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 HOSP Observed: 01/17/2018 Status: COMPLETED Source: [address] 12:00 AM [facility] REPOSITORY Patient:Penelope Cedillo MRN: <[id number]> Height:5' 8.5(1.74 m) Weight:240 lb (108.863 kg) Outpatient Medications as of 01/28/18: celecoxib (CELEBREX) 200 mg capsule simvastatin (ZOCOR) 10 mg tablet lisinopril-hydrochlorothiazide (PRINZIDE,ZESTORETIC) 10-12.5 mg per tablet esomeprazole (NEXIUM) 20 mg capsule aspirin, enteric coated (ADULT LOW DOSE ASPIRIN) 81 mg EC tablet folic acid 800 mcg tablet Cholecalciferol, Vitamin D3, (VITAMIN D) 1,000 unit Tab dtianjbijhj-vsqworjhqs-cdc#182 (COSAMIN ASU) 375-200-100 mg ORAL Cap meclizine [...] for the following basenames: K,HCT Progress Notes ([facility]): JHON Mullen 01/20/2018 3:55 PM Signed Patient calling in saying that she needs to r/s post-op appointments on 02/07 and 03/10 due to her having other obligations. Please assist patient in r/s these appointments: [phone] - best time to reach her is in the morning. Thanks! Steff Chas Chapin Ma 01/21/2018 8:41 AM Signed Called and spoke with patient. Appointment times have been changed to meet patients request. Progress Notes ([facility]): Luna Kong RN, RN 01/17/2018 11:43 AM Signed Patient will be scheduled on January 28, 2018 at [facility] for local procedure. Patient is having right [...] and would like post op visits in [place]. Luna Kong RN, RN 01/17/2018 3:16 PM Signed Letter of confirmation and postops mailed. INA [facility] 01/18/2018 9:01 AM Signed Noted in [facility]. PROGRESS Observed: 01/06/2018 Status: COMPLETED Source: [address] 11:37 AM [facility] REPOSITORY HNO ID: [id number] Author: Hamida Saleh Rt Service: (none) Author [...] BRAIN WO/W Observed: 01/06/2018 Status: F Source: [address] IVCON 10:50 AM [facility] REPOSITORY * * *Final Report* * * DATE OF EXAM: Jan 06 2018 10:50AM [facility] 0295 - MRI BRAIN WO/W IVCON / [...] 3. Unchanged brain without acute intracranial abnormality. Leacher: PSCSeth Transcribe Date/Time: Jan 06 2018 11:21A Dictated by : DINA CHAVEZ MD This examination was interpreted and the report reviewed and electronically signed by: DINA CHAVEZ MD on Jan 06 2018 11:24AM EST [id number] VFA WITH DXA - Observed: 01/03/2018 Status: F Source: [address] AXIAL SKELETON 11:14 AM [facility] REPOSITORY * * *Final Report* * * [...] Osteoporosis Less than or equal to -2.5 Leacher: ZOE Transcribe Date/Time: Jan 03 2018 9:29P Dictated by : THADDEUS JACINTO MD This examination was interpreted and the report reviewed and electronically signed by: THADDEUS JACINTO MD on Jan 03 2018 9:31PM EST [id number] Observed: 01/03/2018 Status: COMPLETED Source: [address] 10:53 AM [facility] REPOSITORY HNO ID: [id number] Author: Joyce Antunez Rt Service: (none) Author Type: (none) Type: Progress Notes Filed: 01/03/2018 11:14 AM Note Text: Penelope Cedillo January 03, 2018 [id number] Double identification: Patient identified by name and Bone Density Completed. Joyce Antunez Rt PATIENT TOLD OF RADIATION JK 11:00AM NOT CREATININE Collected: 12/23/2017 Status: F Source: [address] 11:37 AM [facility] [place] REPOSITORY TYPE CODE TESTS RESULT OUT OF [...] actual GFR. Performed By: #### CRET1 #### [facility] [address] [place], [place] [address] XR LUMBAR 3V Observed: 12/23/2017 Status: F Source: [address] RO[address] AP/LAT/L5-S1 11:19 AM [facility] REPOSITORY * * *Final Report* * * [...] DEGENERATIVE CHANGES IN THE LOWER LUMBAR SPINE. Leacher: ZOE Transcribe Date/Time: Dec 23 2017 12:13P Dictated by : ZULEIKA CARRILLO MD This examination was interpreted and the report reviewed and electronically signed by: ZULEIKA CARRILLO MD on Dec 23 2017 12:15PM EST [id number] Observed: 12/23/2017 Status: COMPLETED Source: [address] 11:07 AM [facility] REPOSITORY HNO ID: [id number] Author: Joyce Landin Service: (none) Author Type: [...] AM PROGRESS Observed: 12/23/2017 Status: COMPLETED Source: [address] 10:17 AM [facility] REPOSITORY HNO ID: [id number] Author: Xander Gunn Service: (none) Author Type: [...] Take 2 tablets by mouth once daily. nyuquevpaxz-rdsibzbjpy-pek#182 (COSAMIN ASU) 375-200-100 mg ORAL Cap Take [...] children: 1 Occupational History Occupation Employer Comment [employer]* Social History Main Topics Smoking status: [...] AB IA Collected: 12/16/2017 Status: F Source: [address] 9:48 AM [facility] REPOSITORY TYPE CODE TESTS RESULT OUT OF REFERENCE UNITS RANGE LAB AHCV Negative Hepatitis C Ab Negative IA Performed By: #### AHCV, HFP, LIPB #### [facility] [address] [place], [place] [address] HEPATIC FUNCTN PANEL Collected: 12/16/2017 Status: F Source: [address] 9:48 AM [facility] REPOSITORY TYPE CODE TESTS RESULT OUT OF REFERENCE UNITS RANGE LAB ALB 3.9-4.9 g/dL Albumin 4.2 LAB TBIL 0.2-1.3 mg/dL Bilirubin, Total 0.4 LAB CBIL <0.2 mg/dL Bilirubin,Conjuga <0.2 blanche LAB ALKP 32-117 U/L Alkaline Phosphatase 88 LAB AST 13-35 U/L AST 23 LAB ALT 7-38 U/L ALT 18 LAB TP 6.3-8.0 g/dL Protein, Total 7.4 Performed By: #### AHCV, HFP, LIPB #### [facility] [address] [place], [place] [address] LIPID PANEL, BASIC Collected: 12/16/2017 Status: F Source: [address] 9:48 AM [facility] REPOSITORY TYPE CODE TESTS RESULT OUT OF [...] Desk Reference: National Heart, Lung, and Blood Melissa. National Institutes of Health. 2001: NIH Publication No. 01-3305. 2. An International Atherosclerosis Society position paper: global recommendations for the management of dyslipidemia: executive summary, Atherosclerosis. 2014: 232(2):410-413. Performed By: #### AHCV, HFP, LIPB #### [facility] [address] [place], [place] [address] CNCO Observed: 12/09/2017 Status: COMPLETED Source: [address] 11:06 AM [facility] REPOSITORY HNO ID: [id number] Author: Mammography Coordinator Service: (none) Author Type: Physician Type: Letter Filed: 12/13/2017 11:31 PM Note Text: December 09, 2017 PID: [id number] Penelope Cedillo [address] [place] [address] Dear Ms. Cedillo, We are pleased to [...] report will be kept on file at [facility] as part of your permanent medical record and are available for your continuing care. Thank you for allowing us to help in meeting your health care needs. Sincerely, Dr. Conde Interpreting Radiologist [facility] (Normal over 40) FELISA SCREENING Observed: 12/09/2017 Status: F Source: [address] RO[address] 10:39 AM [facility] REPOSITORY * * *Final Report* * * DATE OF EXAM: Dec 09 2017 10:39AM [facility] 0581 - [facility] SCREENING / PROCEDURE REASON: multiple diagnoses * * * * Physician Interpretation * * * * RESULT: #[id number] - [facility] SCREENING BILATERAL DIGITAL SCREENING MAMMOGRAM WITH CAD: 12/09/2017 HISTORY: Multiple Diagnoses /Screening Mammogram - patient reports NO symptoms /priors available for comparison. RESULT: TECHNIQUE: The study was acquired using full field digital technology and interpreted from soft copy. Current study was also evaluated with a Computer Aided Detection (CAD). Comparison is made to exams dated: 11/30/2016 mammogram, 11/25/2015 mammogram, and 11/21/2014 mammogram - [facility]. There are scattered fibroglandular elements in both breasts. The patient is status post lumpectomy left breast in the lower aspect. The left breast has post-operative findings. No significant masses, calcifications, or other findings are seen in either breast. IMPRESSION: NEGATIVE There is no mammographic evidence of malignancy.A 1 year screening mammogram is recommended. Edilberto Conde M.D. 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)(Chas), [facility] letter sent: Normal over 40 Mammogram BI-RADS: 1 Negative Leacher: Juan Ramon Transcribe Date/Time: Dec 09 2017 10:39A Dictated by: EDILBERTO CONDE MD This examination was interpreted and the report reviewed and electronically signed by: EDILBERTO CONDE MD on Dec 09 2017 11:06AM EST [id number] ALLERGIES ALLERGIES DATE TYPE / NAME / CODE REACTION SEVERITY SOURCE CODE 08/18/2018 Drug Penicillins/F0010 Anaphylaxis [place] Allergy/41 60619(RXNORM) [facility] [id number]([facility]) Repository 08/18/2018 Drug hydrocodone/F0060 Vomiting [facility] [place] Allergy/41 36553(RXNORM) [facility] 5675574([facility]) Repository 08/18/2018 Drug acetaminophen/F00 Vomiting [place] Allergy/41 9002954(RXNORM) [facility] 3303352([facility]) Repository 08/18/2018 Drug loratadine/L24017 Hives [place] Allergy/41 3909(RXNORM) [facility] 9117670( Hospital O[facility]) Repository 05/19/2011 DRUG TAMOXIFEN OTHER: SEE C [facility] INGREDI/[address] [place] 6143018(SN Repository OMED CT) 01/31/2009 DRUG/80400 HYDROCODONE-ACETA Vomiting [facility] 1003(SNOME MINOPHEN [address] [place] D CT) Repository 11/16/2005 DRUG LORATADINE HIVES [facility] INGREDI/[address] [place] 0226423(SN Repository OMED CT) 09/01/2005 Drug PENICILLINS ANAPHYLAXIS [facility] Class/4195 [address] [place] [address](SNOM Repository ED CT) ENCOUNTERS ENCOUNTERS ADMIT/DISCHARGE ACCOUNT ADMITTING ENCOUNTER LOCATION SOURCE NUMBER CLASS 10/11/2018 [id number] Ambulatory BMSBuilding:Seth Izquierdo MS.CF.[facility] Repository 10/11/2018 [id number] Ambulatory BMSBuilding:Seth Izquierdo MS.[facility] Repository 10/11/2018/10/11/20 [id number] Ambulatory [address] ing:CLSP Repository 09/28/2018 [id number] Ambulatory [facility] ing:LAB Repository 09/15/2018 [id number] Ambulatory BMSBuilding:Seth Izquierdo MS.CF.[facility] Repository 09/15/2018 [id number] [facility] ing:[facility] Repository 08/31/2018/09/01/20 [id number] Ambulatory [address] Repository 08/18/2018/08/18/20 [id number] Ambulatory BMSBuilding:Seth Izquierdo 18 MS.[facility] Repository 08/17/2018 [id number] Ambulatory BMSBuilding:Seth Izquierdo MS.[facility] Repository 08/10/2018/08/10/20 [id number] Ambulatory [address] Repository 07/30/2018/08/01/20 [id number] Ambulatory [address] Repository 07/12/2018/07/13/20 [id number] Ambulatory [address] Repository 07/05/2018/07/05/20 [id number] Ambulatory [address] Repository 03/10/2018/03/15/20 [id number] Ambulatory [address] Main [place] Repository 02/07/2018/02/10/20 [id number] Ambulatory [address] Main [place] Repository 01/28/2018/01/29/20 [id number] NEREIDA Ambulatory [address] Other [place] Repository 01/17/2018/01/19/20 [id number] Ambulatory [address] Main [place] Repository 01/17/2018 [id number] Ambulatory [facility] Main [place] Repository 01/06/2018/01/07/20 [id number] Ambulatory [address] Main [place] Repository 01/03/2018/01/04/20 [id number] Ambulatory [address] Main [place] Repository 12/23/2017 [id number] Ambulatory [facility] Main [place] Repository 12/23/2017/12/23/19 [id number] Ambulatory [address] Repository 12/23/2017/12/23/19 [id number] Ambulatory [address] Main [place] Repository 12/16/2017/12/16/19 [id number] Ambulatory [address] Main [place] Repository 12/09/2017/12/09/19 [id number] Ambulatory [address] Repository PAYERS PAYERS ENCOUNTER GUARANTOR PAYER SUBSCRIBER SOURCE 10/11/2018 PENELOPE [id number] Primary PENELOPE BYRNESOB: [place] [address] Insurance:[employer] [id number] Community BOX [facility]IC[facility] [address], Number: Repository [place] [address]Ihm: [id number] Date:8794-15-11[place] [address] ([address] [address]FY: 10/11/2018 Secondary NOT GIVENUNK [place] Insurance:SELF PAY [facility] Number: Effective Repository Date:2018-10-11 10/11/2018 PENELOPE [id number] Primary PENELOPE BYRNESOB: [place] [address] Insurance:[facility] [id number] Community BOX MEDICARE [facility] [address], Number: [place]ository [place] [address]Qup: [id number] Date:9826-56-14GI BOX () [address] [place] [id number]: 10/11/2018 Secondary NOT GIVENUNK [place] Insurance:SELF PAY [facility] Number: Effective Repository Date:2018-10-11 10/11/2018 PENELOPE Baird [id number] Primary PENELOPE MYRICKNDOB: [place] [address] Insurance:HU[employer] [id number] Community BOX MEDICARE [facility] [address], Number: Repository [place] [address]Tgy: [id number] Date:2849-02-43ZO B[address] () [address] [place] [phone]: 10/11/2018 Secondary NOT GIVENUNK [place] Insurance:SELF PAY [facility] Number: Effective Repository Date:2018-09-20 09/28/2018 PENELOPE A [id number] Primary PENELOPE MYRICKNDOB: [place] [address] Insurance:HUMANA [id number] Community BOX MEDICARE [facility] [address], Number: Repository [place] [address]Aum: [id number] Date:7038-58-76AE B[address] () [address] [place] [phone]: 09/28/2018 Secondary NOT GIVENUNK [place] Insurance:SELF PAY [facility] Number: Effective Repository Date:2018-09-28 09/15/2018 PENELOPE A [id number] Primary PENELOPE MYRICKNDOB: [place] [address] Insurance:[employer] [id number] Community BOX MEDICARE [facility] [address], Number: Repository [place] [address]Ant: [id number] Date:8969-74-99VC BOX () [address] [place] [phone]: 09/15/2018 Secondary NOT GIVENUNK [place] Insurance:SELF PAY [facility] Number: Effective Repository Date:2018-09-15 09/15/2018 PENELOPE Brie [id number] Primary PENELOPE Brie GARNDOB: [place] [address] Insurance:[employer] [id number] Community BOX MEDICARE [facility] [address], Number: Repository [place] [address]Kyh: [id number] Date:9886-47-84QL BOX () [address] [place] [id number]: 09/15/2018 Secondary NOT GIVENUNK [place] Insurance:SELF PAY [facility] Number: Effective Repository Date:2018-08-18 08/18/2018 PENELOPE Brie [id number] Primary PENELOPE Brie MYRICKNDOB: [place] [address] Insurance:[employer] [id number] Community [address], [place] [facility] [address]Gnr: Number: Repository [id number] () Date:5732-40-08KW [address] [place] [phone]: 08/18/2018 Secondary NOT GIVENUNK [place] Insurance:SELF PAY [facility] Number: Effective Repository Date:2018-08-18 08/17/2018 PENELOPE Brie [id number] Primary NOT GIVENUNK [place] [address] Insurance:SELF PAY [address] [place] [address]Oji: Number: Effective Repository Date:2018-08-17 ()
== END 2018-10-11 12:45 | disposition home or self-care (01) ==
LOC: CLSP 07:40
PROVIDERS: Family Provider Family Medicine; PCP Family Medicine; Referring Provider Internal Medicine Cardiovascular Disease; Visit Provider Internal Medicine Cardiovascular Disease
DX: R07.9 Chest pain, unspecified (principal); R06.02 Shortness of breath; R94.39 Abnormal result of other cardiovascular function study; E78.5 Hyperlipidemia, unspecified; I10 Essential (primary) hypertension; Z79.82 Long term (current) use of aspirin; Z79.899 Other long term (current) drug therapy
CPT/HCPCS: 93458; 99152; 99153; J7040; Q9967; C1769; C1894

== ENCOUNTER 2023-05-04 19:47 | Emergency (ER) | payer MEDICARE, SELFPAY ==
[2023-05-04 19:48] VITALS: BP 168/110; PULSE 112; RESP 18; TEMP 36.1; O2SAT 96; BMI 36.1
--- NOTE | 2023-05-04 20:07 | EX.ED.DYSGE1 ---
HPI History of Present Illness Chief Complaint: Abd Pain [facility] Medical History Benign neoplasm of colon Chest pain Cyst of brain Essential hypertension GERD (gastroesophageal reflux disease) Heel spur Hiatal hernia Hyperlipemia Malignant neoplasm of breast (female) Osteoarthritis Poliomyelitis Pulmonary embolism SOB (shortness of breath) Stroke (~2016) Home Medications aspirin 81 mg tablet,delayed release (Adult Low Dose Aspirin) 162 mg PO DAILY 08/17/18 [History Last Taken 10/11/18] celecoxib 200 mg capsule (Celebrex) 200 mg PO DAILY 08/17/18 [History Last Taken Unknown] lisinopril 10 mg-hydrochlorothiazide 12.5 mg tablet (Zestoretic) 1 tab PO DAILY 08/17/18 [History Last Taken Unknown] multivitamin 1 tab PO DAILY 08/17/18 [History Last Taken Unknown] ascorbate calcium-bioflavonoid ER 1,000 mg-200 mg tab,extended release 1 tab PO DAILY 05/18/22 [History Last Taken Unknown] biotin 5 mg tablet mg PO 05/18/22 [History Last Taken Unknown] cholecalciferol (vitamin D3) 25 mcg (1,000 unit) tablet 1,000 unit PO DAILY 05/18/22 [History Last Taken Unknown] coenzyme Q10 100 mg capsule (Co Q-10) 100 mg PO DAILY 05/18/22 [History Last Taken Unknown] glucosamine 375 mg-chondroitin sul A 200 mg-herb no.182 100 mg capsule 1 cap PO DAILY 05/18/22 [History Last Taken Unknown] krill oil 500 mg capsule 500 mg PO DAILY 05/18/22 [History Last Taken Unknown] omeprazole 40 mg capsule,delayed release 40 mg PO DAILY 05/18/22 [History Last Taken Unknown] simvastatin 20 mg tablet 20 mg PO DAILY 05/18/22 [History Last Taken Unknown] vitamins A,C,T-lgct-hyccsq 4,296 mcg-226 mg-90 mg capsule (PreserVision AREDS) 1 cap PO DAILY 05/18/22 [History Last Taken Unknown] Allergy/AdvReac Type Severity Reaction Status Date / Time loratadine [From Claritin] Allergy Severe Hives Verified 05/04/23 19:48 Penicillins Allergy Severe Anaphylaxis Verified 05/04/23 19:48 acetaminophen [From Vicodin] AdvReac Severe Vomiting Verified 05/04/23 19:48 hydrocodone [From Vicodin] AdvReac Severe Vomiting Verified 05/04/23 19:48 tamoxifen AdvReac Severe Pulmonary Verified 05/04/23 19:48 embolism Family History Mother CAD (coronary artery disease) CVA (cerebral vascular accident) Atrial fibrillation Sister Polio Brother CVA (cerebral vascular accident) Surgical History History of appendectomy History of section History of cholecystectomy History of hysterectomy History of left knee replacement History of lumpectomy of left breast History of neck surgery History of radial keratotomy S/P trigger finger release Social History Smoking Status: Never smoker alcohol intake: never substance use type: does not use caffeine: Yes Type: tea Number of servings: 1 EXAM Physical Exam Const Vital Signs: 05/04/23 19:48 05/04/23 20:14 05/04/23 20:18 Temperature 97 F L Temperature Source Temporal Pulse Rate 112 H 102 H Respiratory Rate 18 16 Respiratory Pattern Normal Blood Pressure 168/110 H 162/83 H Blood Pressure Mean 129 109 Pulse Ox 96 96 Oxygen Delivery Method Room Air 05/04/23 22:14 Temperature Temperature Source Pulse Rate 88 Respiratory Rate 16 Respiratory Pattern Blood Pressure 149/62 H Blood Pressure Mean 91 Pulse Ox 97 Oxygen Delivery Method Room Air MDM MDM MDM Narrative Medical decision making narrative: HISTORY OF PRESENT ILLNESS: 72-year-old female presents with concerns for abdominal pain chest pressure and dark stools. She states chest pain abdominal pain began months ago. It is not worse with food. She notes past couple days she had darker stools than usual. She denies any syncope. Denies ripping or tearing sensation. Patient denies sudden onset of pain, no tearing sensation, no migratory symptoms, no new numbness, weakness or loss of sensation. Patient denies family history or personal history of Marfan syndrome or Tiffanie-Danlos. My PE risk REVIEW OF SYSTEMS: Pertinent positives: Abdominal pain, chest pressure, dark stools Pertinent negatives: Syncope, focal weakness or numbness PHYSICAL EXAM: Nursing triage notes reviewed, Vital signs reviewed Constitutional: please see mdm HENT: MMM Eyes: Pupils equal round and reactive to light, Extraocular muscles intact Neck: No stridor, no JVD, full neck ROM Lungs: Clear to auscultation, No wheezing or rales. No increased work of breathing, no conversational dyspnea, no accessory muscle use, no nasal flaring. No respiratory distress noted Heart: Regular rate and rhythm, No murmurs, No rubs and No gallops, 2+ distal pulses (radial, femoral, posterior tibial) in all extremities Abdomen: Soft, there is no tenderness, rigidity, rebound or guarding, no obvious peritoneal signs, no palpable pulsatile abdominal masses, no auscultated abdominal bruit : No CVAT Extremities: No edema Neuro: No focal neurological deficits, cranial nerves II through XII intact, 5/5 strength in all extremities. Intact sensation to light touch in all extremities, 2+ reflexes bilateral patella tendons. Normal gait. No ataxia. Skin: No rash or lesions noted MEDICAL DECISION MAKING: Chief Complaint: Chest pain, abdominal pain, dark stools External records reviewed: No recent advanced imaging of the abdomen or pelvis noted in the chart Factors affecting care: History of hypertension, hyperlipidemia, GERD, no blood thinners noted status post multiple abdominal surgeries including appendectomy, cholecystectomy and hysterectomy Social determinants of health: Elderly History obtained from others: none Consults: none ALL IMAGES (IF OBTAINED) HAVE BEEN PERSONALLY REVIEWED AND INTERPRETED BY MYSELF. CBC with leukocytosis suggestive of systemic information, no anemia or thrombocytopenia BMP without significant electrolyte abnormalities, no anion gap to suggest endorgan hypoperfusion, no SHANNA LFTs show no evidence of hepatobiliary pathology. Lipase is wnl indicating no pancreatic inflammation. EKG with normal sinus rhythm, left ax deviation, normal intervals, no STEMI Urinalysis shows no evidence of urinary inflammation suggestive of UTI MDM Narrative: Patient was initially hypertensive, tachycardic, afebrile. Abdominal exam was benign. There is no stigmata of dissection on exam, no pulse deficits, no focal neurologic deficits. I considered the following differential diagnosis: ACS, pneumonia, pneumothorax, PE, dissection, intra-abdominal surgical pathology, obstruction, perforation, gallbladder etiology, pancreatitis, GI bleed I resuscitated the patient 1 L normal saline. I obtained a broad lab and imaging work-up to further elucidate the etiology the patient complaints. Labs images were remarkable for no evidence of acute surgical pathology in the abdomen or pelvis. No evidence of ACS, pneumonia, pneumothorax, I considered pulmonary embolism however patient low risk Wells score. Consider obtaining a CT of the chest at this time however thought this was not indicated. On reassessment patient abdominal pain remained benign. I suspect her presentation is secondary to hiatal hernia causing chest discomfort abdominal pain. No indication for acute surgical consultation or admission at this time. She was given general surgery and gastroenterology follow-up for outpatient evaluation The patient and/or family, caregivers express understanding. The patient and/or family, caregivers agrees with the plan. Total critical care time today provided was at least 0 minutes. This excludes separately billable procedures. Critical care time (if documented) is secondary to the patient having high probability of clinically significant/life threatening deterioration in the patient's condition which required my urgent intervention. Shared decision making: I will have a discussion with the patient and or visitors regarding risk/benefits of further testing or admission. They will be made aware of of the risk/benefits inherent in this decision they will be given the opportunity to voice understanding. Lab Data Attestation: I reviewed the patient's lab results. Labs: Laboratory Results - last 24 hr 05/04/23 21:17 WBC 11.5 H RBC 4.11 L Hgb 13.0 Hct 37.7 MCV 91.7 MCH 31.6 MCHC 34.5 RDW Std Deviation 41.4 RDW Coeff of Norma 12.4 Plt Count 197 MPV 11.1 Immature Gran % (Auto) 0.300 Neut % (Auto) 66.6 Lymph % (Auto) 24.8 [place] % (Auto) 7.5 Eos % (Auto) 0.4 Baso % (Auto) 0.4 Absolute Neuts (auto) 7.7 Absolute Lymphs (auto) 2.85 Nucleated RBC % 0 Sodium 139 Potassium 4.1 Chloride 109 H Carbon Dioxide 25.0 Anion Gap 5 BUN 34 H Creatinine 0.88 Estim Creat Clear Calc 57.44 Est GFR (MDRD) Af Amer 80 Est GFR (MDRD) Non-Af 66 BUN/Creatinine Ratio 38.5 H Glucose 106 Calcium 9.1 Total Bilirubin 0.30 Direct Bilirubin 0.09 AST 22 ALT 19 Alkaline Phosphatase 80 Troponin I High Sens 7 Total Protein 7.1 Albumin 3.3 Globulin 3.8 Lipase 57 Radiography Diagnostic Testing: Clinical Impression(s) from Imaging Studies Chest X-Ray 05/04/23 22:05 IMPRESSION: 1. Larger size of large gas-filled hiatal hernia projecting over the heart compared to prior exam. Herniation of most of the stomach confirmed on CT the same day. Correlate with nausea and vomiting. 2. Otherwise stable chest. 3. Lumpectomy and axillary dissection. Electronically Signed: Alis Blanton MD at 22:45 EDT Reading Location ID and State: [facility] / [place] Tel , Service support , Chest x-ray was read and reviewed by myself shows no evidence of obvious intrathoracic pathology such as pneumonia or heart failure. Discharge Plan Triage Chief Complaint: Abd Pain ED Provider: [facility] Dx/Rx/DC Orders Clinical Impression: Abdominal pain, Chest pain, Hernia, hiatal Instructions: ED Hiatal Hernia Prescriptions: No Action lisinopril-hydrochlorothiazide [Zestoretic] 10-12.5 mg tablet 1 tab PO DAILY celecoxib [Celebrex] 200 mg capsule 200 mg PO DAILY aspirin [Adult Low Dose Aspirin] 81 mg tablet,delayed release (DR/EC) 162 mg PO DAILY multivitamin tablet 1 tab PO DAILY glucosamine 375 mg-chondroitin sul A 200 mg-herb no.182 100 mg capsule 375-200-100 mg capsule 1 cap PO DAILY cholecalciferol (vitamin D3) 25 mcg (1,000 unit) tablet 1,000 unit PO DAILY omeprazole 40 mg capsule,delayed release(DR/EC) 40 mg PO DAILY coenzyme Q10 [Co Q-10] 100 mg capsule 100 mg PO DAILY PreserVision AREDS 14,320-226-200 [id number]-[id number] capsule 1 cap PO DAILY krill oil 500 mg capsule 500 mg PO DAILY ascorbate calcium-bioflavonoid 1,000-200 mg tablet extended release 1 tab PO DAILY simvastatin 20 mg tablet 20 mg PO DAILY biotin 5 mg tablet PO Primary Care Provider: Xander Gunn Referrals: Ernesto Rome MD [Med Staff - Active Staff] - Friend,DO Shay [Med Staff - Active Staff] - Activity Restrictions/Additional Instructions: Thank you for trusting us with your care today! Please take Tylenol (2 pills, 650 mg), ibuprofen (2 pills, 400 mg) every 6 hours as needed for pain and fever control. Please begin taking omeprazole again as this will improve your symptoms. Please return to the emergency department if your symptoms change or worsen. Please follow with your primary care physician, general surgery, gastroenterology for further outpatient evaluation and management. Disposition Disposition: Home, Self Care
[2023-05-04 20:14] VITALS: BP 162/83; PULSE 102; RESP 16; O2SAT 96
--- NOTE | 2023-05-04 21:00 | CT_ITS ---
EXAM: CT ABDOMEN AND PELVIS WITH INTRAVENOUS CONTRAST CLINICAL INDICATION: abdominal pain TECHNIQUE: Helically acquired images were obtained of the abdomen and pelvis with intravenous contrast. This CT exam was performed using one or more of the following dose reduction techniques: automated exposure control, adjustment of the mA and/or kV according to patient size, and/or use of iterative reconstruction technique. RADIATION DOSE: CTDIvol = 21.76 mGy, DLP = 1251.82 mGy-cmContrast: IV 100mL Isovue-370 COMPARISON: No relevant prior studies available. FINDINGS: LOWER THORAX: Large hiatal hernia consisting of three quarters of the stomach, distal body-antrum entering the abdomen at approximately widened esophageal hiatus about 4.3 cm transverse. There is moderate gas in the stomach the herniated portion measures 14.4 cm transverse by 8.8 cm craniocaudal. The GE junction is herniated and on the left, in the stomach appears rotated with narrowed distal stomach and narrowing at the proximal body. The greater curvature appears to be anterior-superior, with narrowing at the fundal-body junction, at least partial volvulus. There is collapse of the pylorus and mild gas and fluid in the duodenum. Mild atelectasis in the posterior lateral left lung base. Slight calcification of an aortic valve leaflet, normal heart size. Slight calcification of left anterior descending coronary artery. No significant pericardial effusion. ABDOMEN: LIVER: Unremarkable. Homogeneous. No focal mass. GALLBLADDER AND BILE DUCTS: Cholecystectomy. No intra- or extrahepatic biliary ductal dilation. PANCREAS: Mildly atrophic pancreas, no dilated duct. No focal cystic or solid mass. SPLEEN: Unremarkable. Normal size without focal cystic or solid mass. ADRENALS: Unremarkable. No nodules. KIDNEYS AND URETERS: Unremarkable. Normal renal size and position. No hydronephrosis. STOMACH AND BOWEL: Mild gas in the distal stomach. Mild gas and stool in the right colon, mild scattered gas in the distal colon. Mild diverticulosis, no evidence of diverticulitis. PELVIS: APPENDIX: Nonvisualized appendix, no pericecal inflammation. BLADDER: Unremarkable. REPRODUCTIVE: Hysterectomy. ABDOMEN and PELVIS: INTRAPERITONEAL SPACE: Unremarkable. No ascites or other fluid collection. No free air. BONES/JOINTS: Minimal degenerative spine changes. No suspicious lytic or blastic abnormality. SOFT TISSUES: Postoperative change of the left breast. A deep spiculated region of soft tissue density between the surgical clips of roughly 1.6 cm x 1.6 cm x 1.7 cm may be scarring but recurrent neoplasm cannot be excluded on the basis of this exam. No discrete abdominal or pelvic wall hernia. VASCULATURE: See above. LYMPH NODES: Minimal bulging into bilateral proximal inguinal regions. Minimal mesenteric adenopathy, presumably chronic. CT/Abdomen/Pelvis W IV Cont ONLY IMPRESSION: 1. Hiatal hernia with mildly increased size or distention and at least partial volvulus appearance. Mildly increased size of hiatal hernia and/or distention from chest radiograph 2018. It was 11 cm x 8.4 cm, it is now 14.4 cm cm x 8.8 cm and includes three quarters of the stomach. Correlate with any chest pain and nausea and vomiting. 2. Mild left basilar atelectasis and vascular crowding. 3. Postoperative change of the left breast with small spiculated breast soft tissue density immediately anterior to the fifth anterolateral rib and surrounded by surgical clips. This appears to be in the surgical bed and likely scarring but please correlate with recent mammogramcare follow-up. 4. Cholecystectomy. Hysterectomy. Appendectomy. Minimal diverticulosis, no evidence of diverticulitis. Electronically Signed: Alis Blanton MD at 23:05 EDT ,
--- NOTE | 2023-05-04 21:00 | EKG12_ITS ---
Test Reason : DYSRHYTHMIA Blood Pressure : / mmHG Vent. Rate : 093 BPM Atrial Rate : 093 BPM P-R Int : 168 ms QRS Dur : 092 ms QT Int : 334 ms P-R-T Axes : 027 -14 031 degrees QTc Int : 415 ms Normal sinus rhythm Normal ECG When compared with ECG of 27-OCT-2010 05:47, Nonspecific T wave abnormality no longer evident in Anterior leads Confirmed by REAL KOEHLER, NHUNG ([id number]), managing editor KACIE REYES ([id number]) on 05/07/2023 8:57:21 AM Referred By: ANAI Confirmed By:NHUNG NOBLE MD
[2023-05-04 21:23] LABS: Absolute Lymphocyte Count 2.85 X10^3/uL (0.83-4.51); Absolute Neutrophil Count 7.7 X10^3/uL (2.0-7.7); Basophil# 0.05 X10^3/uL; Basophil% 0.4 % (0-1); Eosinophil# 0.05 X10^3/uL; Eosinophils% 0.4 % (0-5); Hematocrit 37.7 % (37-47); Lymphocyte # 2.85 X10^3/ul (0.83-4.51); Lymphocyte % 24.8 % (19-41); Mean Corp Hgb Conc 34.5 g/dL (32-36); Mean Corpuscular Hgb 31.6 pg (27.0-32.0); Mean Corpuscular Volume 91.7 fL (81-99); Mean Platelet Vol. 11.1 fl (6.2-12.0); Monocyte# 0.86 X10^3/uL; Monocyte% 7.5 % (0-10); NRBC Flagged by Analyzer 0 % (0-5); Neutrophil # 7.66 X10^3/uL (2.7-7.7); Neutrophil % 66.6 % (47-70); Platelet Count 197 K/mm3 (150-450); RBC Distribution Width CV 12.4 % (11.6-14.6); RBC Distribution Width SD 41.4 fl (35.1-43.9); Red Blood Count 4.11 M/mm3 (4.2-5.4); White Blood Count 11.5 K/mm3 (4.4-11.0)
[2023-05-04 21:41] LABS: AST(SGOT) 22 U/L (15-37); Alanine Aminotransfer ALT/SGPT 19 U/L (13-56); Albumin, Serum 3.3 g/dL (3.2-5.0); Alkaline Phosphatase 80 U/L (45-117); Anion Gap 5 (5-15); BUN 34 mg/dL (7-18); BUN/Creat Ratio 38.5 RATIO (10-20); Bilirubin, Direct 0.09 mg/dL (0.00-0.30); Calcium,Total 9.1 mg/dL (8.5-10.1); Chloride 109 mmol/L (98-107); Creatinine, Serum 0.88 mg/dL (0.55-1.02); EST Glomerular Filtration Rate 66 mL/min (>60); Est Glom Filt Rate - Afr Amer 80 mL/min (>60); Estimated Creatinine Clearance 57.44 ml/min; Globulin 3.8 g/dL (2.2-4.2); Glucose 106 mg/dL (74-106); Lipase 57 U/L (13-75); Potassium 4.1 mmol/L (3.5-5.1); Protein, Total 7.1 g/dL (6.4-8.2); Sodium Level 139 mmol/L (136-145); Troponin-I HS 7 pg/mL (3.0-54.0)
--- NOTE | 2023-05-04 22:05 | RAD_ITS ---
EXAM: XR CHEST, 1 VIEW CLINICAL INDICATION: CP TECHNIQUE: Frontal view of the chest. COMPARISON: September 28, 2018. FINDINGS: LUNGS AND PLEURAL SPACES: Unremarkable. No pneumothorax. No infiltrates or effusions. HEART: There appears to be at least moderate to large hiatal hernia, increased from prior exam, estimated to be at least 13.5 cm transverse and over 7.8 cm craniocaudal projecting over the heart, confirmed on CT of the same day, most of the stomach is herniated with gastric antrum remaining entering the abdomen. MEDIASTINUM: Central airways and mediastinal contour are unremarkable. BONES/JOINTS: See above. SOFT TISSUES: Surgical clips over the left breast and tiny metallic clips over the left axilla. Small size of the left breast compared to the right noted on prior exam, presumed lumpectomy. RAD/Chest 1 View (Portable) IMPRESSION: 1. Larger size of large gas-filled hiatal hernia projecting over the heart compared to prior exam. Herniation of most of the stomach confirmed on CT the same day. Correlate with nausea and vomiting. 2. Otherwise stable chest. 3. Lumpectomy and axillary dissection. Electronically Signed: Alis Blanton MD at 22:45 EDT ,
[2023-05-04] MEDS: 0.9% Normal Saline 1,000 ML 1000 ML IV (22:13)
[2023-05-04 22:14] VITALS: BP 149/62; PULSE 88; RESP 16; O2SAT 97
[2023-05-04 22:57] LABS: Bacteria 0 SEEN /hpf (None Seen); Mucous, Urine 0 SEEN /hpf (<or=2+); Red Blood Cells-Urine 0 SEEN /hpf (0-5)
[2023-05-04 23:00] LABS: Color, Urine Yellow (Yellow); Glucose, Dipstick Normal (Normal); Ketone-Dipstick Negative (Negative); Leukocyte Esterase-Dipstick 25 /ul (Negative); Nitrite-Dipstick Negative (Negative); Occult Blood-Urine 25 /ul (Negative); Protein-Dipstick 15 mg/dl (Negative); Specific Gravity, Urine 1.015 (1.002-1.030); Urine Bilirubin Dipstick Negative (Negative); Urine Clarity Clear (Clear); Urine Urobilinogen Normal (Normal)
[2023-05-04 23:14] LABS: Squamous Epithelial Cells - UA 0-5 SEEN /hpf (5-10); White Blood Cells 0-5 SEEN /hpf (0-5)
[2023-05-04 23:31] VITALS: BP 149/62; PULSE 90; RESP 15; O2SAT 97
== END 2023-05-04 23:32 | disposition home or self-care (01) ==
PROVIDERS: Emergency Provider Emergency Medicine; PCP Family Medicine; Visit Provider Emergency Medicine
DX: R10.9 Unspecified abdominal pain (principal); R07.9 Chest pain, unspecified; K44.9 Diaphragmatic hernia without obstruction or gangrene; E78.5 Hyperlipidemia, unspecified; I10 Essential (primary) hypertension; Z90.49 Acquired absence of other specified parts of digestive tract
CPT/HCPCS: 71045; 74177; 80048; 80076; 81001; 83690; 84484; 85025; 93005; 96360; 99284; J7030; Q9967; A4216

== ENCOUNTER → 2023-06-04 | Outpatient (CLI) | payer MEDICARE, SELFPAY ==
--- NOTE | 2023-06-04 16:20 | STRESSREP ---
Stress Test Report Pharmacologic myocardial perfusion stress test. 72-year-old lady with a history of chest pain Resting EKG demonstrates sinus rhythm with a rate of 65 bpm. Resting blood pressure is 130/78 mmHg. 0.4 mg of regadenoson was infused per usual protocol followed by rapid intravenous saline flush injection. Continuous EKG monitoring was performed. The maximum heart rate was 90 bpm which was 61% of max impacted heart rate the maximum workload was 1 metabolic equivalent. At rest there were no ST or T wave changes noted to suggest ischemia and at peak infusion nonspecific ST changes were noted which did not meet the criteria for ischemia. No clinical angina is noted. The final blood pressure was 132/78 mmHg. Myocardial perfusion protocol. 14.6 mCi of technetium 99m sestamibi was injected at rest. 0.4 mg of regadenoson was infused per usual protocol. At peak infusion 44.5 mCi of technetium 99m sestamibi was injected stress images were obtained stress and rest images were reconstructed and compared in the short axis vertical long and horizontal long axis. Gated images were also obtained. Perfusion SPECT analysis: Review of the stress images demonstrate normal uptake of tracer noted in all areas of the myocardium. Mild reduction of the anterior wall perfusion is noted. The resting images similar demonstrated normal uptake of tracer noted in all areas of the myocardium. Mild reduction is also noted of the anterior wall. No areas of reversibility are noted to suggest ischemia and no previous infarct is noted. Gated SPECT analysis: The gated ejection fraction is 70%. Conclusion: Normal pharmacologic myocardial perfusion stress test. Preserved ejection fraction.
== END | disposition home or self-care (01) ==
PROVIDERS: PCP Family Medicine; Referring Provider Physician Assistant Medical; Visit Provider Physician Assistant Medical
DX: R07.9 Chest pain, unspecified (principal)
CPT/HCPCS: 78452; 93017; 93225; 93226; A9500; A4216; J2785